=== PATIENT | female | born 1965 | race Caucasian/White ===

== ENCOUNTER 2022-04-04 07:59 | Emergency (ER) | payer MEDICARE, MEDICAID, SELFPAY ==
[2022-04-04 08:10] VITALS: BP 135/86; PULSE 75; RESP 21; TEMP 36.5; O2SAT 97; BMI 40.8
--- NOTE | 2022-04-04 08:29 | EXP.UTC ---
Discharge Plan Disposition Patient Disposition: Home, Self-Care Condition: Good Prescriptions Prescriptions: New prednisone [prednisone] 20 mg tablet 20 mg PO BID Qty: 10 0RF cyclobenzaprine 5 mg tablet 5 mg PO HS PRN (Reason: muscle spasm) Qty: 7 0RF Referrals Follow up/Referrals: Fabian Bush MD [Primary Care Provider] - See instructions Activity Restrictions/Add. Instructions Additional Instructions/Restrictions: if symptoms worsen or do not improve return or be seen in ed follow up with pcp on tuesday Clinical Impressions Clinical Impression: Acute low back pain with sciatica Instructions Patient Instructions: DI for Low Back Pain, Low Back Pain Discharge [facility] [place] General Stated complaint: Possible sciatic nerve pain LT side Mode of Arrival: Ambulatory Source of Information: Patient Limitations: No Limitations Time Seen by Provider: 04/04/22 08:29 Description of Symptoms (Recalled from Triage Doc. by RN): PATIENT C/O SCIATICA PAIN TO LEFT BUTTOCK THAT RADIATES DOWN LEFT LEG X 2 WEEKS HEENT Symptoms (Recalled from RN notes): No Resp Symptoms (Recalled from RN notes): No Skin Symptoms (Recalled from RN notes): No MS Symptoms (Recalled from RN notes): Yes Functional Status (Recalled from RN notes): WNL History of Present Illness Provider Complaint: 57 yr old female presents for low back pain and pain radiating down left leg for 2 weeks. pt states she was seen by her back md and was given a steroid shot in her back on but this did not help her pain. 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 , [employer]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) Smoking Status: Unknown if ever smoked alcohol intake: never current occupational status: other Travel in the last 8 weeks: None ROS Obtained: Yes All systems reviewed & no additional complaints except as documented Constitutional Constitutional: Reports system reviewed and no additional complaints, except as documented Eyes Eyes: Reports system reviewed and no additional complaints, except as documented ENT Ears, Nose, Mouth, and Throat: Reports system reviewed and no additional complaints, except as documented Cardiovascular Cardiovascular: Reports system reviewed and no additional complaints, except as documented Respiratory Respiratory: Reports system reviewed and no additional complaints, except as documented Gastrointestinal Gastrointestingal: Reports system reviewed and no additional complaints, except as documented Musculoskeletal Musculoskeletal: Reports system reviewed and no additional complaints, except as documented, Reports as per HPI, Reports back pain, Reports limited range of motion and Reports radiating pain into limb Integumentary/Breasts Skin/Breast: Reports system reviewed and no additional complaints, except as documented Neurologic Neurologic: Reports system reviewed and no additional complaints, except as documented Endocrine Endocrine: Reports system reviewed and no additional complaints, except as documented Hematologic/Lymphatic Henatologic/Lymphatic: Reports system reviewed and no additional complaints, except as documented Allergic/Immunologic Allergic/Immunologic: Reports system reviewed and no additional complaints, except as documented
[2022-04-04 08:52] VITALS: BP 135/86; PULSE 75; RESP 21; TEMP 36.5; O2SAT 97
== END 2022-04-04 08:53 | disposition home or self-care (01) ==
PROVIDERS: Emergency Provider Nurse Practitioner Family; PCP Pediatrics
DX: M54.40 Lumbago with sciatica, unspecified side (principal); Z87.19 Personal history of other diseases of the digestive system; F41.9 Anxiety disorder, unspecified; F32.A Depression, unspecified; E78.5 Hyperlipidemia, unspecified; I10 Essential (primary) hypertension
CPT/HCPCS: 96372; 99213; G0463

== ENCOUNTER → 2022-09-14 07:12 | Outpatient (CLI) | payer MEDICARE, MEDICAID, SELFPAY ==
--- NOTE | 2022-09-14 07:12 | CT_ITS ---
FINAL REPORT CLINICAL HISTORY: lung cancer screening, former smoker for 39 years, 1ppd, pt quit 2-3 months ago, pt currently vapes FINDINGS: Axial images were obtained from the lung apex to the mid abdomen by computed tomography. Low-dose protocol was utilized. CTDl vol(mGy): 2.9 DLP (mGy-cm): 96.38 FINDINGS: There are several mildly enlarged mediastinal lymph nodes. Moderate to severe coronary artery calcifications are noted. The heart size is normal. There is no pericardial or pleural effusion. Limited images of the upper abdomen are unremarkable. Lung window images demonstrate mild emphysema mild scarring. There are several small bilateral pulmonary nodules. There is a 4 mm nodule in the right lung base seen on image 57. There are 2 adjacent nodules at the left major fissure, the largest measuring 5 mm.. IMPRESSION: Several bilateral pulmonary nodules. Lung RADS category 2. Recommend 12 month follow-up low-dose chest CT. Moderate to severe coronary artery calcifications. Lung RADS category S. Reviewed, Interpreted and Dictated by Gilles Segovia III, MD Transcribed by Andria Guerrero Authenticated and [facility]
== END ==
PROVIDERS: PCP Physician Assistant; Visit Provider Physician Assistant
DX: Z87.891 Personal history of nicotine dependence; Z12.2 Encounter for screening for malignant neoplasm of respiratory organs
CPT/HCPCS: 71271

== ENCOUNTER → 2022-09-29 09:58 | Outpatient (CLI) | payer MEDICARE, MEDICAID, SELFPAY | PROVIDERS: PCP Physician Assistant; Visit Provider Physician Assistant | DX: E78.5 Hyperlipidemia, unspecified (principal); I10 Essential (primary) hypertension; R06.00 Dyspnea, unspecified; Z82.49 Family history of ischemic heart disease and other diseases of the circulatory system; Z87.891 Personal history of nicotine dependence; I20.8 Other forms of angina pectoris | CPT/HCPCS: 93306 ==

== ENCOUNTER → 2022-10-04 12:11 | Outpatient (CLI) | payer MEDICARE, MEDICAID, SELFPAY ==
--- NOTE | 2022-10-04 | CA_ITS ---
APPROVED REPORT Exam: Pharmacologic Technologist: Miroslava Wood Ht: 5 ft 0 in Wt: 217 lbs BSA: 1.93 m2 HR: 59 bpm BP: 137/91 mmHg Indications: Chest pain Medical History Medications: Amlodipine,,,,, Trazadone,,,,, Atorvastatin,,,,, Lisinopril/HCTZ,,,,, Buspirone,,,,, Nexium,,,,, Albuterol,,,,, Cyclobenzaprine,,,,, Latuda,,,,, Hydroxyzine,,,,, ANoro,,,,, LaMatringe,,,,, Stress Test Details Test: LEXISCAN HR Resting HR: 64 bpm Max Heart Rate (APMHR): 165 bpm Max HR Achieved: 142 bpm Target HR (85% APMHR): 140 bpm % of APMHR: 86 Recovery HR: 89 bpm BP Resting BP: 137.0/91.0 mmHg Max BP: 178.0/94.0 mmHg Recovery BP: 156.0/94.0 mmHg ECG Resting ECG: NSR, early repolarization pattern with J-point elevation Stress ECG: No change Clinical Exercise duration: 04:00 min Highest Stage Achieved: Exercise capacity: n/a METs Stress ECG Conclusion Symptoms: Shortness of breath Arrhythmias/Ectopy: None ECG at baseline demonstrates NSR with early repolarization and upsloping J-point elevation. Stress ECG is non-diagnostic due to baseline changes, but overall no major changes were observed. Conclusion: Non-diagnostic due to baseline ECG changes Test Summary REST . . . . . . . Resting REST 03:59 . . 64 . 137/ 91 . . Stage 1 . . . . . . . Myoview Injected Stage 1 01:00 . . 99 . . . . Stage 2 01:00 . . 100 . . . . Stage 3 01:00 . . 91 . 135/ 91 . . Stage 4 01:00 . . 92 . . . Stop exercise at 04:00 RECOVERY 01:00 . . 86 . . . . RECOVERY 02:00 . . 81 . 156/ 94 . . RECOVERY 03:00 . . 83 . 173/104 . . RECOVERY 04:00 . . 74 . 172/ 95 . . RECOVERY 05:00 . . 93 . 172/ 95 . . RECOVERY 06:00 . . 68 . 172/ 95 . . RECOVERY 07:00 . . 68 . 178/ 94 . . RECOVERY 08:00 . . 70 . 178/ 94 . . RECOVERY 09:00 . . 62 . 178/ 94 . . RECOVERY 10:00 . . 62 . 178/ 94 . . RECOVERY 11:00 . . 69 . 175/ 94 . . RECOVERY 11:18 . . 64 . 175/ 94 . . Electronically signed by : Emi Alonso, 10/11/2022 18:41:12
--- NOTE | 2022-10-04 12:11 | NM_ITS ---
APPROVED REPORT Exam: Nuclear Stress Test Indication: chest pain..soa..fatigue Patient Location: Outpatient Stress Tech: Miroslava Wood NM Tech:Lashon Guzman COLT RT (R)(N)(M) Ht: 5 ft 0 in Wt: 216 lbs Bra Size: dd HR: 59 bpm BP: 137/91 mmHg BSA: 1.93 m2 TID: 1.10 History: chest pain, SOB, fatigue Procedure: Patient received 0.4 mg of intravenous Lexiscan, resting heart rate 59 bpm, resting blood pressure 137/91 mmHg, with Lexiscan maximum heart rate achieved was 102 bpm which is 85 % of the maximum predicted heart rate and blood pressure was 135/91 mmHg. With Lexiscan, patient denied any complaint of chest pain. Cardiac Stress and Resting SPECT Images: Cardiac Stress and Resting SPECT images were obtained using technetium 99m Myoview 31.0 mCi stress and 11.06 mCi at rest. Raw images demonstrate breast shadowing overlying the cardiac silhouette. Resting and stress images demonstrate a large, moderate, fixed perfusion defect along the entire anterior LV wall. This defect is no longer visualized in prone imaging. Gated images demonstrate normal global and regional LV wall function. The LV ejection fraction is calculated at 68%. Conclusion: Resting and stress images demonstrate a large, moderate, fixed perfusion defect along the entire anterior LV wall. This defect is no longer visualized in prone imaging. Findings are consistent with normal perfusion in the setting of breast attenuation, with no evidence of ischemia. Gated images demonstrate normal global and regional LV wall function. The LV ejection fraction is calculated at 68%. Electronically signed by : Emi Alonso, 10/04/2022 23:44:23
== END ==
PROVIDERS: PCP Physician Assistant; Visit Provider Physician Assistant
DX: I25.10 Atherosclerotic heart disease of native coronary artery without angina pectoris (principal); R07.9 Chest pain, unspecified
CPT/HCPCS: 78452; 93017; A9502; J2785

== ENCOUNTER → 2022-11-01 12:50 | Outpatient (POV) | payer MEDICARE, MEDICAID, SELFPAY ==
[2022-11-01 13:01] VITALS: BP 138/69; PULSE 72; RESP 18; O2SAT 98; BMI 43.0
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
== END ==
PROVIDERS: PCP Physician Assistant; Visit Provider Nurse Practitioner Family
DX: M50.30 Other cervical disc degeneration, unspecified cervical region (principal); M51.36 Other intervertebral disc degeneration, lumbar region; M47.816 Spondylosis without myelopathy or radiculopathy, lumbar region; G89.29 Other chronic pain
CPT/HCPCS: 99202; G0463

== ENCOUNTER 2022-11-09 10:24 | Day surgery (SDC) | payer MEDICARE, MEDICAID, SELFPAY ==
[2022-11-09 10:38] VITALS: BP 148/76; PULSE 60; RESP 18; TEMP 36.1; O2SAT 99; BMI 43.0
[2022-11-09 10:43] VITALS: BP 134/64; PULSE 58; RESP 18; O2SAT 97
[2022-11-09 10:45] VITALS: BP 134/64; PULSE 58; RESP 18; O2SAT 97
[2022-11-09 10:55] VITALS: BP 132/51; PULSE 60; RESP 18; O2SAT 99
--- NOTE | 2022-11-09 11:08 | P.PCN_ITS ---
Procedure Date: 11/09/22 Time: 10:30 Anesthesiologist:: Davi Cowan CRNA Complications:: None Pre-procedure Diagnosis:: Degenerative disc lumbar spine multilevels. Lumbar radiculopathy. Lumbar spondylosis. Multilevel lumbar facet arthropathy. Post-procedure Diagnosis:: Same. Indications for Procedure:: Very pleasant 57-year-old female that comes our clinic today for bilateral lumbar radiofrequency ablation L3-4, L4-5. Patient has had this procedure in the past resulting in 4 months of relief in terms of her overall low back pain and bilateral hip radicular symptoms. She rates her pain today 6/10. Patient has difficulty with flexion, extension, left and right rotation. Standing and or sitting for any length of time is difficult. Procedure Details:: Procedure Details: Bilateral lumbar RFA Informed consent was obtained and the risk and benefits of the procedure was explained to the patient. Patient was placed prone on the procedure table. The patient was prepped and draped in sterile fashion. C-arm fluoroscopy was used to view the lumbar spine. The skin and subcutaneous tissues were anesthetized using lidocaine. I placed 20-gauge RF needles into the facet joints of the bilateral L3-L4, L4-L5. We underwent sensory stimulation. There is good sensory stimulation at 0.8 V. We underwent motor stimulation. There is no motor stimulation at 2 V. We then anesthetized these levels with lidocaine and Depo- Medrol. I used a total of 40 mg Depo-Medrol for all 3 levels. I then burned all 3 levels of L3-L4, L4-5 bilaterally for 4 minutes at 80 ?C. Patient tolerated the procedure well with no complication Plan and Disposition:: Patient was discharged without incident
== END 2022-11-09 10:55 | disposition home or self-care (01) ==
LOC: SC.PAINP 10:25
PROVIDERS: PCP Physician Assistant; Visit Provider Nurse Anesthetist, Certified Registered
DX: M51.16 Intervertebral disc disorders with radiculopathy, lumbar region (principal); M47.26 Other spondylosis with radiculopathy, lumbar region
CPT/HCPCS: 64635; 64636 ×2; J1040

== ENCOUNTER → 2022-11-11 12:00 | Outpatient (CLI) | payer MEDICARE, MEDICAID, SELFPAY ==
[2022-11-11 12:22] LABS: Basophils % 0.3 % (0.1-2.0); Eosinophils # 0.1 K/mm3 (0.0-0.4); Eosinophils % 1.3 % (0.1-12.0); Hematocrit 41.6 % (37.0-47.0); Hemoglobin 13.6 g/dL (12.2-16.2); Lymphocytes # 3.2 K/mm3 (0.7-4.5); Lymphocytes % 32.7 % (10-50); Mean Corpuscular HGB Conc 32.7 g/dL (31.8-35.4); Mean Corpuscular Hemoglobin 30.3 pg (27.0-31.2); Mean Corpuscular Volume 92.8 fl (81-99); Mean Platelet Volume 9.1 fl (7.4-10.4); Monocytes # 0.6 K/mm3 (0.1-1.0); Monocytes % 6.1 % (1.7-9.3); Neutrophils # 5.8 K/mm3 (1.8-7.8); Neutrophils % 59.7 % (37.0-80.0); Platelet Count 377 K/mm3 (142-424); Red Blood Count 4.48 M/mm3 (4.20-5.40); Red Cell Distribution Width 13.7 % (11.5-17.5); White Blood Count 9.8 K/mm3 (4.8-10.8)
[2022-11-11 13:00] LABS: Chloride 101 mmol/L (98-107); Sodium 140 mmol/L (136-145)
[2022-11-11 13:02] LABS: Alanine Aminotransferase 23 U/L (12-78); Alkaline Phosphatase 151 U/L (38-126); Aspartate Amino Transferase 27 U/L (14-36); Bilirubin,Total 0.2 mg/dl (0.2-1.3); Blood Urea Nitrogen 19 mg/dl (7-17); Estimated Glomerular Filt Rate 104 ml/min (>60); GFR (African American) 126 ML/MIN (>60)
[2022-11-11 13:03] LABS: Albumin Level 4.1 g/dl (3.5-5.0); Albumin/Globulin Ratio 1.3 (1.1-1.8); Calcium 9.1 mg/dl (8.4-10.2); Carbon Dioxide 28 mmol/L (22.0-30.0); Chol/HDL Ratio 3.5 (1-3.5); Cholesterol 165 mg/dl (140-200); Globulin 3.1 g/dL (1.3-3.2); Glucose 103 mg/dl (74-100); HDL Cholesterol 47 mg/dl (40-60); Total Protein,Serum 7.2 g/dl (6.3-8.2); Triglycerides 137 mg/dl (30-150); VLDL Cholesterol 27 mg/dL (0-40)
[2022-11-11 13:14] LABS: Direct LDL Cholesterol 86.78 mg/dL (100-129)
[2022-11-11 13:34] LABS: Thyroid Stimulating Hormone 0.55 uIU/mL (0.465-4.68)
[2022-11-13 19:35] LABS: HBsAg Screen Negative (Negative); HCV Ab Non Reactive (Non Reactive); Hep A Ab, IGM Negative (Negative); Hep B Core Ab, IgM Negative (Negative)
[2022-11-15 10:35] LABS: Intact Parathyroid Hormone 32.4 pg/mL (7.5-53.5)
[2022-11-16 11:14] LABS: 25-OH Vitamin D, Total 74.6 ng/mL (30-100)
== END ==
PROVIDERS: PCP Physician Assistant; Visit Provider Physician Assistant
DX: I10 Essential (primary) hypertension (principal); R53.83 Other fatigue; E55.9 Vitamin D deficiency, unspecified
CPT/HCPCS: 80053; 80061; 80074; 82306; 83970; 84443; 85025

== ENCOUNTER → 2022-11-24 11:25 | Outpatient (POV) | payer MEDICARE, MEDICAID, SELFPAY ==
[2022-11-24 11:32] VITALS: BP 140/51; PULSE 58; RESP 18; O2SAT 97; BMI 42.2
--- NOTE | 2022-11-24 11:34 | EXP.PAIN.SOA ---
[facility] Pain Management SOAP Note Subjective:: Patient is a pleasant 57-year-old female who presents today for follow-up of lumbar RFA L3-L4 and L4-L5 bilaterally on 11/09/2022. We are currently treating the patient for degenerative disc disease of cervical and lumbar spine with cervical and lumbar radiculopathy symptoms, lumbar facet arthropathy, lumbar spondylosis, chronic pain syndrome, low back pain, neck pain. Today she states that she has had at least 60 to 70% relief following this injection. She does rate her pain today a 3 out of 10 and denies any new trauma or injury. She does states she has been able to increase her activity with decreased pain symptoms. 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 At our last visit we did order her methocarbamol 750 mg 3 times a day however she states she did not get this prescription. Patient is currently managed with tramadol 50 mg twice a day from her primary care doctor. Patient denies any side effects from this medication. Her Jose is [phone]. Its been reviewed and appropriate. Review of Systems: General: No recent weight changes, no fever, no sleep disturbances Respiratory: No cough, no shortness of air, no recurring pulmonary infections Cardiovascular/peripheral vascular: No chest pain, no palpitations, no edema, no shortness of breath Gastrointestinal: No new onset incontinence, normal bowel movements reported Genitourinary: No new onset incontinence Musculoskeletal: Low back pain Psychiatric: [Normal mood/affect] Neurological: [Denies weakness in extremities], [denies balance issues] Objective:: Physical Exam: General: Alert and oriented x3, no acute distress, pleasant and cooperative Lungs: Respirations even and unlabored, symmetrical chest expansion Eyes: PERRL Musculoskeletal: Flexion and extension of lumbar [spine] somewhat guarded secondary to pain, [antalgic gait noted] Neurological: Speech clear, no gross sensory deficit Assessment:: Degenerative disc disease of cervical and lumbar spine with cervical and lumbar radiculopathy symptoms, lumbar facet arthropathy, lumbar spondylosis, chronic pain syndrome, low back pain, neck pain Plan:: Patient has had at least 70% improvement following her lumbar RFA and does not require any additional injective therapy. I will send in a refill of the methocarbamol 750 mg 3 times a day and provide a 1 month supply of this medication. Patient will return to clinic in 1 month for reevaluation of symptoms, medication refill and follow-up. Patient has been instructed to contact the clinic with any concerns before the next appointment. Dr. Davis has reviewed this note and agrees with this plan of care. This note was dictated using voice recognition software and make contain errors or omissions. [facility] Disclaimer: The information contained in this section may have been updated after the patient was seen, as this information can be updated by other users. Medical History Abnormal electrocardiogram [ECG] [EKG] Abnormal liver function tests Anxiety Back pain, chronic Bipolar 1 disorder COPD (chronic obstructive pulmonary disease) Coronary artery calcification seen on CT scan Coronary artery disease Depression Dyspnea Elevated liver enzymes Family history of ischemic heart disease before age 50 Father-[place] @ 42 Brother-KAVITHA @42 Brother-CABG @45 Mother-AFib Former smoker Hyperlipidemia Hypertension Insomnia Morbid obesity with BMI of 40.0-44.9, adult Neck pain, chronic Typical angina 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 H/O colonoscopy H/O lateral meniscus repair of left knee H/O lateral meniscus repair of right knee H/O splenectomy History of appendectomy History of bladder surgery History
== END | disposition home or self-care (01) ==
PROVIDERS: PCP Physician Assistant; Visit Provider Nurse Practitioner Family
DX: M50.10 Cervical disc disorder with radiculopathy, unspecified cervical region (principal); M51.16 Intervertebral disc disorders with radiculopathy, lumbar region; M47.26 Other spondylosis with radiculopathy, lumbar region; G89.4 Chronic pain syndrome
CPT/HCPCS: 99212; G0463

== ENCOUNTER → 2022-11-29 09:00 | Outpatient (CLI) | payer MEDICARE, MEDICAID, SELFPAY ==
--- NOTE | 2022-11-29 09:00 | XR_ITS ---
FINAL REPORT CLINICAL HISTORY: . post menopausal screening COMPARISON: None FINDINGS: Using L1-4, the bone mineral density of the spine is 1.002 g/cm2, corresponding to T-score of -0.4, within normal range. Using the left hip, the bone mineral density of the femoral neck is 0.649 g/cm2, corresponding to a T-score of -1.8, consistent with low bone density. Using the right hip, the bone mineral density of the femoral neck is 0.699 g/cm2, corresponding to a T-score of -1.3, within normal range. FRAX 10 year fracture risk is 0.5% for a hip fracture and 6.4% for a major osteoporotic fracture. NOTE: T-score: Standard deviation compared with peak bone mass of young adult mean. *Following the recommendations of the International Society of Bone densitometry, classification of hip BMD is based on the lower of two T-scores; total hip or femoral neck. IMPRESSION: Normal bone mineral density of the lumbar spine and right hip, with diminished bone mineral density in the left hip consistent with low bone density. Reviewed, Interpreted and Dictated by Gilles Segovia III, MD Transcribed by Erin Mcnulty Authenticated and [facility]
== END ==
PROVIDERS: PCP Physician Assistant; Visit Provider Physician Assistant
DX: Z78.0 Asymptomatic menopausal state (principal)
CPT/HCPCS: 77080

== ENCOUNTER → 2022-12-02 10:28 | Outpatient (CLI) | payer MEDICARE, MEDICAID, SELFPAY ==
--- NOTE | 2022-12-02 10:32 | MM_ITS ---
PROCEDURE INFORMATION: Exam: MG Bilateral Screening 3D Mammography Exam date and time: 12/02/2022 10:25 AM Age: 57 years old Clinical indication: Screening examination; Family history of breast cancer : Paternal cousin TECHNIQUE: Imaging protocol: Bilateral Screening tomosynthesis and 2D mammography including computer-aided detection (CAD) when performed. COMPARISON: 1. MG [facility]CR[facility] MAMMO W/CAD BILAT 12/30/2021 9:34 AM 2. MG [facility]CRN MAMMO W/CAD BILAT 12/09/2020 11:30 AM FINDINGS: MAMMOGRAPHY: Breast composition: The breasts are heterogeneously dense, which may obscure small masses. Mass: None. Architectural distortion: None. Calcifications: No suspicious calcifications. Asymmetric density: None. Skin thickening: None. Axillary adenopathy: None. IMPRESSION: No mammographic evidence of malignancy. Annual screening is recommended unless otherwise clinically indicated. ASSESSMENT: BI-RADS Category 1: Negative
== END ==
PROVIDERS: PCP Physician Assistant; Visit Provider Physician Assistant
DX: Z12.31 Encounter for screening mammogram for malignant neoplasm of breast (principal)
CPT/HCPCS: 77063; 77067

== ENCOUNTER → 2022-12-09 07:36 | Outpatient (CLI) | payer MEDICARE, MEDICAID, SELFPAY ==
--- NOTE | 2022-12-09 07:36 | US_ITS ---
FINAL REPORT TECHNIQUE: Sonographic images of the right upper quadrant were obtained. CLINICAL HISTORY: Abnormal lab result FINDINGS: PANCREAS: The tail of the pancreas is obscured, but the head is normal. LIVER: Homogeneous. No focal hepatic lesion. No intrahepatic biliary ductal dilatation. The portal vein is patent with normal directional flow. GALLBLADDER: Absent. COMMON DUCT: 3 mm. Normal for age. RIGHT KIDNEY: The right kidney measures 10.3 cm. There is no hydronephrosis, mass, or stone. FREE FLUID: None. IMPRESSION: Unremarkable ultrasound of the right upper quadrant. Reviewed, Interpreted and Dictated by Diamond Dick MD Transcribed by Jihan Song Authenticated and [facility]
== END ==
PROVIDERS: PCP Physician Assistant; Visit Provider Physician Assistant
DX: R74.8 Abnormal levels of other serum enzymes (principal)
CPT/HCPCS: 76705

== ENCOUNTER 2022-12-09 08:31 | Day surgery (SDC) | payer MEDICARE, MEDICAID, SELFPAY ==
[2022-12-09] VITALS (14 sets, daily range): BP systolic 104–156; BP diastolic 61–105; PULSE 50–73; RESP 16–19; TEMP 36.6; O2SAT 90–99; BMI 41.8; BMI 42.5
--- NOTE | 2022-12-09 07:08 | IR_ITS ---
APPROVED REPORT Patient Location: Outpatient Cardiovascular Technologist: COLT Sifuentes RT (R) PROCEDURES Selective coronary angiogram FFR to the LAD Drug-eluting stent deployment to the mid LAD INDICATION Coronary artery disease, Angina pectoris, Ischemic response to adenosine with an FFR index of 0.77 Informed consent was obtained prior to the procedure. COMPLICATIONS None Estimated Blood Loss: Less than 10 mls TECHNIQUE One percent lidocaine used to anesthetize the right anterior aspect of the wrist. The right radial artery was accessed via the Seldinger technique. A 6 Wolof sheath was placed in the right radial artery. 150 mg magnesium sulfate, 800 mcg of nitroglycerin, 1mg Lidocaine and 5000 U Heparin were given through the arterial sheath. The papa catheter was also used to perform selective coronary angiography. At the end the diagnostic angiogram therapeutic heparin was administered giving a therapeutic ACT and the guide catheter was placed on left main artery followed by Choice PT extra-support wire being placed on the LAD. An IVUS FFR catheter was advanced to the left main artery and equalized. This was then advanced past the LAD stenosis and adenosine was infused. Once that the FFR index to 0.77 the adenosine was stopped and a 3.5 x 38 mm [place] frontier stent was deployed at 16 bairon reducing the stenosis. An additional 3.5 x 12 mm [place] frontier stent was placed proximal to the for stent yet still overlapping and deployed at 16 bairon. The balloon was advanced to the midportion and an area that was under deployed and deployed at 18 bairon to post dilate. 800 mcg of intracoronary artery nitroglycerin was administered. JOHN-3 flow was present before and after the procedure. At the end the procedure the apparatus was removed the sheath was removed and hemostasis was achieved using TR banding patient was transferred to the postop putting in stable condition ANGIOGRAPHIC RESULTS The left main artery Normal The left anterior descending artery Has proximal 10 to 20% stenosis followed by an additional mid vessel 30 to 40% stenosis with additional mid vessel concentric 50% stenosis followed by an additional 40 to 50% stenosis. The LAD is large caliber vessel and wraps the apex The circumflex artery Is nondominant gives rise to a moderate-sized ramus intermedius which has a proximal concentric 80% stenosis. This is a 2.25 mm vessel. The true circumflex artery has an ostial 40% stenosis The right coronary artery Is a dominant vessel and has a proximal eccentric 40 to 50% stenosis with mid vessel 40% stenosis The JULIEN ventriculogram reveals Not performed The left ventricular end-diastolic pressure Not measured IMPRESSION Angiographically moderate mid LAD disease which produced severe hemodynamic ischemia when challenged with adenosine producing an FFR index of 0.77 Successful stenting the mid LAD large wraparound LAD vessel reduced to 0% with 2 contiguous drug-eluting stents Persistent severe stenosis and a 2.25 mm ramus intermedius Moderate disease in the ostial circumflex artery and mid dominant right coronary PLAN 1. Dual antiplatelet therapy 2. LDL less than 55 to achieve that high intensity statin 3. At this point I favor medical management of the ramus intermedius. Should patient continue to experience angina pectoris refractory to antianginal medications I would consider bringing her back and stenting this vessel. Given the small caliber of the vessel I would like patient to experience maximum medications. I also suspect patient's angina pectoris stems from the LAD given its large caliber vessel and the wraparound apex nature of the vessel 4. Cardiac rehabilitation 5. Recommend sleep study 6. Consider Voxel.pl in 6 weeks Electronically signed
[2022-12-09 09:21] LABS: Anion Gap 10.4 mEq/L (5-15); Blood Urea Nitrogen 19 mg/dl (7-17); Calcium 9.5 mg/dl (8.4-10.2); Carbon Dioxide 32 mmol/L (22.0-30.0); Chloride 102 mmol/L (98-107); Creatinine Clearance Estimated 65 mL/min (50-200); Estimated Glomerular Filt Rate 87 ml/min (>60); GFR (African American) 105 ML/MIN (>60); Glucose 103 mg/dl (74-100); Potassium 3.4 mmoL/L (3.5-5.1); Sodium 141 mmol/L (136-145)
[2022-12-09 10:28] LABS: Basophils % 0.5 % (0.1-2.0); Hematocrit 39.5 % (37.0-47.0); Hemoglobin 13.3 g/dL (12.2-16.2); Lymphocytes # 3.5 K/mm3 (0.7-4.5); Mean Corpuscular HGB Conc 33.7 g/dL (31.8-35.4); Mean Corpuscular Hemoglobin 30.4 pg (27.0-31.2); Mean Corpuscular Volume 90.2 fl (81-99); Mean Platelet Volume 10.2 fl (7.4-10.4); Monocytes # 0.7 K/mm3 (0.1-1.0); Monocytes % 8.9 % (1.7-9.3); Neutrophils # 3.1 K/mm3 (1.8-7.8); Neutrophils % 41.6 % (37.0-80.0); Platelet Count 332 K/mm3 (142-424); Red Blood Count 4.38 M/mm3 (4.20-5.40); Red Cell Distribution Width 14.5 % (11.5-17.5); White Blood Count 7.5 K/mm3 (4.8-10.8)
[2022-12-09 10:29] LABS: Eosinophils # 0.2 K/mm3 (0.0-0.4)
[2022-12-09 13:15] LABS: CATHL Activated Clotting Time 342 SEC (74-125)
--- NOTE | 2022-12-09 14:24 | HMH.PHACL ---
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
== END 2022-12-09 15:22 | disposition home or self-care (01) ==
PROVIDERS: PCP Physician Assistant; Visit Provider Internal Medicine
DX: E78.5 Hyperlipidemia, unspecified (principal); I10 Essential (primary) hypertension; I25.10 Atherosclerotic heart disease of native coronary artery without angina pectoris; J44.9 Chronic obstructive pulmonary disease, unspecified; R06.00 Dyspnea, unspecified; R94.31 Abnormal electrocardiogram [ECG] [EKG]; Z82.49 Family history of ischemic heart disease and other diseases of the circulatory system; Z79.899 Other long term (current) drug therapy; Z79.01 Long term (current) use of anticoagulants; F17.290 Nicotine dependence, other tobacco product, uncomplicated
CPT/HCPCS: 76705; 80048; 85025; 85347; 92928; 93454; 93571; 99152; 99153; C1725; C1769; C1876; C9600; J0153; J1644; Q9967

== ENCOUNTER → 2022-12-21 13:37 | Outpatient (CLI) | payer MEDICARE, MEDICAID, SELFPAY ==
[2022-12-21 14:38] LABS: Basophils # 0.1 K/mm3 (0-0.2); Basophils % 0.5 % (0.1-2.0); Eosinophils # 0.1 K/mm3 (0.0-0.4); Eosinophils % 1.2 % (0.1-12.0); Hematocrit 42.9 % (37.0-47.0); Hemoglobin 13.7 g/dL (12.2-16.2); Lymphocytes # 4.1 K/mm3 (0.7-4.5); Lymphocytes % 44.4 % (10-50); Mean Corpuscular HGB Conc 31.8 g/dL (31.8-35.4); Mean Corpuscular Hemoglobin 29.6 pg (27.0-31.2); Mean Corpuscular Volume 92.9 fl (81-99); Mean Platelet Volume 7.4 fl (7.4-10.4); Monocytes # 0.7 K/mm3 (0.1-1.0); Monocytes % 7.6 % (1.7-9.3); Neutrophils # 4.3 K/mm3 (1.8-7.8); Neutrophils % 46.2 % (37.0-80.0); Platelet Count 343 K/mm3 (142-424); Red Blood Count 4.62 M/mm3 (4.20-5.40); Red Cell Distribution Width 13.9 % (11.5-17.5); White Blood Count 9.2 K/mm3 (4.8-10.8)
[2022-12-21 15:16] LABS: Blood Urea Nitrogen 13 mg/dl (7-17); Calcium 9.3 mg/dl (8.4-10.2); Carbon Dioxide 32 mmol/L (22.0-30.0); Estimated Glomerular Filt Rate 104 ml/min (>60); GFR (African American) 126 ML/MIN (>60); Glucose 88 mg/dl (74-100)
[2022-12-21 16:12] LABS: Anion Gap 8.6 mEq/L (5-15); Chloride 105 mmol/L (98-107); Potassium 3.6 mmoL/L (3.5-5.1); Sodium 142 mmol/L (136-145)
== END ==
PROVIDERS: PCP Physician Assistant; Visit Provider Internal Medicine
DX: I25.10 Atherosclerotic heart disease of native coronary artery without angina pectoris (principal); Z95.5 Presence of coronary angioplasty implant and graft
CPT/HCPCS: 36415; 80048; 85025

== ENCOUNTER → 2022-12-23 11:09 | Outpatient (POV) | payer MEDICARE, MEDICAID, SELFPAY ==
--- NOTE | 2022-12-23 11:19 | EXP.PAIN.SOA ---
[facility] Pain Management SOAP Note Subjective:: Patient is a pleasant 57-year-old female who presents today for follow-up and medication refill. We are currently treating the patient for degenerative disc disease of cervical and lumbar spine with cervical and lumbar radiculopathy symptoms, lumbar facet arthropathy, lumbar spondylosis, chronic pain syndrome, low back pain, neck pain. Today she rates her pain a 3 out of 10. Patient states she is continued to do well following her lumbar RFA back in October and feels like it is still providing additional relief. She does state that she has had recent heart issues including having to have a heart cath and had 2 stents placed due to blockages. She does state that she is now on a blood thinner. Patient is currently managed with methocarbamol 750 mg 3 times a day and tramadol 50 mg 1 to 2 tablets a day. Patient denies any side effects from this medication. Her Jose is [id number]. Its been reviewed and appropriate. Review of Systems: General: No recent weight changes, no fever, no sleep disturbances Respiratory: No cough, no shortness of air, no recurring pulmonary infections Cardiovascular/peripheral vascular: No chest pain, no palpitations, no edema, no shortness of breath Gastrointestinal: No new onset incontinence, normal bowel movements reported Genitourinary: No new onset incontinence Musculoskeletal: Low back pain Psychiatric: [Normal mood/affect] Neurological: [Denies weakness in extremities], [denies balance issues] Objective:: Physical Exam: General: Alert and oriented x3, no acute distress, pleasant and cooperative Lungs: Respirations even and unlabored, symmetrical chest expansion Eyes: PERRL Musculoskeletal: Flexion and extension of lumbar [spine] somewhat guarded secondary to pain, [antalgic gait noted] Neurological: Speech clear, no gross sensory deficit Assessment:: Degenerative disc disease of cervical and lumbar spine with cervical and lumbar radiculopathy symptoms, lumbar facet arthropathy, lumbar spondylosis, chronic pain syndrome, low back pain, neck pain Plan:: I will send in refills of her tramadol 50 mg twice daily and methocarbamol 750 mg 3 times daily and provide a 2-month supply of this medication. Patient will return to clinic in 2 months for reevaluation of symptoms, medication refill and plan of care. Patient has been instructed to contact the clinic with any concerns before the next appointment. Dr. Davis has reviewed this note and agrees with this plan of care. This note was dictated using voice recognition software and make contain errors or omissions. [facility] Disclaimer: The information contained in this section may have been updated after the patient was seen, as this information can be updated by other users. Medical History (Updated 12/21/22 @ 14:58 by Lashon Vu RN) Abnormal electrocardiogram [ECG] [EKG] Abnormal liver function tests Anxiety Back pain, chronic Bipolar 1 disorder COPD (chronic obstructive pulmonary disease) Coronary artery abnormality Coronary artery calcification seen on CT scan Coronary artery disease Depression Dyspnea Elevated liver enzymes Family history of ischemic heart disease before age 50 Former smoker Hyperlipidemia Hypertension Insomnia Morbid obesity with BMI of 40.0-44.9, adult Neck pain, chronic Typical angina 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 H/O colonoscopy H/O lateral meniscus repair of left knee H/O lateral meniscus repair of right knee H/O splenectomy History of appendectomy History of bladder surgery History of cholecystectomy Tubal ligation status Family History Other No significant family history Social History Smoking Status: Current every day smoker tobacco type: e-cigarettes alcohol intake: never current occupational status: unemployed Travel in the last 8
[2022-12-23 14:44] VITALS: BP 140/70; PULSE 66; RESP 18; O2SAT 97; BMI 42.8
== END | disposition home or self-care (01) ==
PROVIDERS: Visit Provider Nurse Practitioner Family
DX: M50.10 Cervical disc disorder with radiculopathy, unspecified cervical region (principal); M51.16 Intervertebral disc disorders with radiculopathy, lumbar region; M47.26 Other spondylosis with radiculopathy, lumbar region; G89.4 Chronic pain syndrome
CPT/HCPCS: 99212; G0463

== ENCOUNTER → 2023-02-28 10:53 | Outpatient (POV) | payer MEDICARE, MEDICAID, SELFPAY ==
[2023-02-28 11:15] VITALS: BP 144/73; PULSE 66; RESP 20; BMI 42.0
--- NOTE | 2023-02-28 11:42 | EXP.PAIN.SOA ---
[facility] Pain Management SOAP Note Subjective:: This patient is a very pleasant 58-year-old female that comes our clinic today for follow-up visit after receiving bilateral lumbar L4-5, L5-S1 radiofrequency ablation. Patient doing very well with her midline back pain. Patient patient reports 80% plus pain relief with RFA. Patient's main complaint today is right posterior hip pain. She describes the pain as constant, sharp, stabbing at times. She rates the pain 6/10. Patient has difficulty transitioning from sitting to standing. Difficulty with flexion of the lumbar spine. Patient is currently being managed with methocarbamol 750 mg 1 p.o. 3 times daily. Tramadol 50 mg 1 to 2 tablets daily. She is not reporting side effects from the medication. She states medication is helping. However, nothing is helping this right posterior hip pain. Upon examination she has extreme point tenderness over the right sacroiliac joint. She has difficulty transitioning from sitting to standing. Patient has difficulty rolling over on her right side in bed secondary to pain. She has positive Yue's test. Positive Gaenslen's test. Positive right sacroiliac joint compression test. Patient's Jose #[id number] has been reviewed and appropriate. Objective:: Patient is awake alert [place] x3. In no acute distress. Flexion-extension lumbar spine somewhat guarded secondary to pain. Deep tendon reflexes upper and lower extremities normal. Motor strength upper and lower extremities normal. There is no gross sensory deficit. Gait is normal. Assessment:: Degenerative disc lumbar spine multilevels. Lumbar radiculopathy. Lumbar spondylosis. Multi lumbar facet arthropathy. Right sacroiliitis. Plan:: We will refill the patient's tramadol 50 mg 1 p.o. 3 times daily. Robaxin-750 milligrams 1 p.o. 3 times daily. We will schedule patient for right sacroiliac joint injection. I discussed in detail with the patient regarding the injection. Answered her questions. She wishes to proceed. Patient is tried and failed NSAIDs. Tylenol. Conservative treatment such as home exercise program and physical therapy. [facility] Disclaimer: The information contained in this section may have been updated after the patient was seen, as this information can be updated by other users. Medical History Abnormal electrocardiogram [ECG] [EKG] Abnormal liver function tests Anxiety Back pain, chronic Bipolar 1 disorder COPD (chronic obstructive pulmonary disease) Coronary artery abnormality Coronary artery calcification seen on CT scan Coronary artery disease Depression Dyspnea Elevated liver enzymes Family history of ischemic heart disease before age 50 Father-VT @ 42 Brother-KAVITHA @42 Brother-CABG @45 Mother-AFib Former smoker Hyperlipidemia Hypertension Insomnia Morbid obesity with BMI of 40.0-44.9, adult Neck pain, chronic Typical angina 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 H/O colonoscopy H/O lateral meniscus repair of left knee H/O lateral meniscus repair of right knee H/O splenectomy History of appendectomy History of bladder surgery History of cholecystectomy Tubal ligation status Family History Other No significant family history Social History Smoking Status: Current every day smoker tobacco type: e-cigarettes alcohol intake: never substance use type: denies use current occupational status: other Travel in the last 8 weeks: None
== END | disposition home or self-care (01) ==
PROVIDERS: PCP Physician Assistant; Visit Provider Nurse Anesthetist, Certified Registered
DX: M46.1 Sacroiliitis, not elsewhere classified (principal); M51.16 Intervertebral disc disorders with radiculopathy, lumbar region; M47.26 Other spondylosis with radiculopathy, lumbar region
CPT/HCPCS: 99212; G0463

== ENCOUNTER 2023-03-15 09:14 | Day surgery (SDC) | payer MEDICARE, MEDICAID, SELFPAY ==
[2023-03-15 09:27] VITALS: BP 120/60; PULSE 58; RESP 16; TEMP 36.7; O2SAT 96; BMI 42.0
[2023-03-15 09:35] VITALS: BP 134/61; PULSE 58; RESP 18; O2SAT 96
[2023-03-15 09:39] VITALS: BP 113/67; PULSE 59; RESP 18; O2SAT 95
[2023-03-15 09:40] VITALS: BP 113/67; PULSE 59; RESP 18; O2SAT 95
--- NOTE | 2023-03-15 10:40 | EXP.PAIN.PRO ---
Procedure Date: 03/15/23 Time: 10:00 Anesthesiologist:: Davi Cowan CRNA Complications:: None Pre-procedure Diagnosis:: Right sacroiliitis. Post-procedure Diagnosis:: Same. Indications for Procedure:: Very pleasant 58-year-old female comes our clinic today for right sacroiliac joint injection. Patient reports low lumbar right-sided back pain as well as right posterior hip pain. She describes the pain as constant, dull, aching, sharp and stabbing at times. She rates her pain 8/10. Patient also reports difficulty transitioning from sitting to standing. Procedure Details:: Procedure: Right sacroliliac joint injection under fluoroscopy Informed consent was obtained and the risk and benefits of the procedure were explained to the patient.~ The patient was taken to the procedure room and noninvasive monitors were placed including noninvasive blood pressure cuff and pulse oximeter.~ The patient was placed prone on the procedure table.~ The~ right hip was cleansed using Betadine as a cleansing solution.~ C-arm fluorosocpy was used to view the right SI joint.~ The skin and subcutaneous tissues were anesthetized using Lidocaine 1.5% and a 25-gauge needle.~ After this, a 22-gauge spinal needle was inserted under fluoroscopic guidance into the inferior aspect of the right SI joint.~ Omnipaque dye was injected and a good spread was seen throughout the joint.~ After this, approximately 5 mL of bupivacaine 0.25% was incrementally injected into the sacroiliac joint.~ The patient tolerated the procedure well with no complications.~ The patient was observed in the Pain Clinic, then discharged home neurologically intact.~ Plan and Disposition:: Patient was discharged without incident.
== END 2023-03-15 09:35 | disposition home or self-care (01) ==
PROVIDERS: PCP Physician Assistant; Visit Provider Nurse Anesthetist, Certified Registered
DX: M46.1 Sacroiliitis, not elsewhere classified (principal)
CPT/HCPCS: 27096; G0260

== ENCOUNTER → 2023-03-30 09:29 | Outpatient (POV) | payer MEDICARE, MEDICAID, SELFPAY ==
--- NOTE | 2023-03-30 09:40 | EXP.PAIN.SOA ---
[facility] Pain Management SOAP Note Subjective:: Patient is a pleasant 57-year-old female who presents today for follow-up of right SI injection on 03/15/2020.. We are currently treating the patient for degenerative disc disease of cervical and lumbar spine with cervical and lumbar radiculopathy symptoms, lumbar facet arthropathy, lumbar spondylosis, chronic pain syndrome, low back pain, neck pain, sacroiliitis. Today she rates her pain a 3 out of 10. She does state following this injection she had approximately 70% or more improvement and feels like it is still continuing to provide additional relief. She does state today that she has noticed that her left side was also bothering her however where the right was where most of her pain was coming from she is just now noticing how bad the left is. She states the pain is all in her low back along the left side and into her left hip. Patient does describe this as an aching, throbbing sensation that is worse with increased activity. She does state the pain is worse with increased activity or ambulation or prolonged sitting. She states the pain does interfere with activities of daily living such as cooking and cleaning. She is interested in doing the SI injection along the left side at today's visit. Patient does have a heart history with stents placed related to blockages and is on a daily blood thinner. Patient is currently managed with methocarbamol 750 mg 3 times a day and tramadol 50 mg 1 to 2 tablets a day. Patient denies any side effects from this medication. She is not requesting refills at this time. Review of Systems: General: No recent weight changes, no fever, no sleep disturbances Respiratory: No cough, no shortness of air, no recurring pulmonary infections Cardiovascular/peripheral vascular: No chest pain, no palpitations, no edema, no shortness of breath Gastrointestinal: No new onset incontinence, normal bowel movements reported Genitourinary: No new onset incontinence Musculoskeletal: Low back pain, left hip pain Psychiatric: [Normal mood/affect] Neurological: [Denies weakness in extremities], [denies balance issues] Objective:: Physical Exam: General: Alert and oriented x3, no acute distress, pleasant and cooperative Lungs: Respirations even and unlabored, symmetrical chest expansion Eyes: PERRL Musculoskeletal: Flexion and extension of lumbar [spine] somewhat guarded secondary to pain, [antalgic gait noted] point tenderness along left SI with positive left Yue's, Thomas's, Gaenslen's, compression and distraction exam Neurological: Speech clear, no gross sensory deficit Assessment:: Degenerative disc disease of cervical and lumbar spine with cervical and lumbar radiculopathy symptoms, lumbar facet arthropathy, lumbar spondylosis, chronic pain syndrome, low back pain, neck pain, sacroiliitis Plan:: Patient has had significant improvement following her right SI injection however she is experiencing worsening pain in her low back along the left side and into her left hip. Patient had limited range of motion of her lumbar spine and point tenderness at her left SI with a positive left Yue's, Thomas's, Gaenslen's, compression and distraction exam during today's assessment. I have discussed with the patient that she may benefit from a diagnostic SI injection on the left side. Risk and benefits were discussed with the patient and she would like to proceed forward with this plan of care. We will schedule the patient for a left diagnostic SI injection. Patient has been instructed to contact the clinic with any concerns before the next appointment. Dr. Davis has reviewed this note and agrees with this plan of care. This note was dictated using voice recognition software and make contain errors or omissions. [facility] Disclaimer: The information contained in this section may have been updated after the patient was seen, as this information can be updated by other users. Medical History (Reviewed 03/29
[2023-03-30 10:00] VITALS: BP 121/67; PULSE 57; RESP 18; O2SAT 96; BMI 41.0
== END ==
PROVIDERS: PCP Physician Assistant; Visit Provider Nurse Practitioner Family
DX: M50.10 Cervical disc disorder with radiculopathy, unspecified cervical region (principal); M51.16 Intervertebral disc disorders with radiculopathy, lumbar region; M47.26 Other spondylosis with radiculopathy, lumbar region; G89.4 Chronic pain syndrome; M46.1 Sacroiliitis, not elsewhere classified
CPT/HCPCS: 99212; G0463

== ENCOUNTER 2023-05-06 08:25 | Day surgery (SDC) | payer MEDICARE, MEDICAID, SELFPAY ==
[2023-05-06 08:39] VITALS: BP 133/78; PULSE 66; RESP 16; TEMP 36.2; O2SAT 97; BMI 42.0
[2023-05-06 08:42] VITALS: BP 115/60; PULSE 65; O2SAT 96
[2023-05-06 08:45] VITALS: BP 115/60; PULSE 66; O2SAT 96
[2023-05-06 08:46] VITALS: BP 134/53; PULSE 61; RESP 16; O2SAT 97
--- NOTE | 2023-05-06 08:59 | EXP.PAIN.PRO ---
Procedure Date: 05/06/23 Time: 08:35 Anesthesiologist:: Davi Cowan CRNA Complications:: None Pre-procedure Diagnosis:: Left sacroiliitis Post-procedure Diagnosis:: Same Indications for Procedure:: Very pleasant 58-year-old female comes our clinic today for left sacroiliac joint injection. Upon examination patient has extreme point tenderness over the left sacroiliac joint. Patient reports having difficulty transitioning from sitting to standing. She rates the pain 7/10. Patient had good success with right sacroiliac joint several months ago. Procedure Details:: Procedure: Left sacroiliac injection under fluoroscopy Informed consent was obtained and the risk and benefits of the procedure were explained to the patient.~ The patient was taken to the procedure room and noninvasive monitors were placed including noninvasive blood pressure cuff and pulse oximeter.~ The patient was placed prone on the procedure table.~ The~ left hip was cleansed using Betadine as a cleansing solution.~ C-arm fluorosocpy was used to view the left SI joint.~ The skin and subcutaneous tissues were anesthetized using Lidocaine 1.5% and a 25-gauge needle.~ After this, a 22-gauge spinal needle was inserted under fluoroscopic guidance into the inferior aspect of the left SI joint.~ Omnipaque dye was injected and a good spread was seen throughout the joint.~ After this, approximately 5 mL of bupivacaine 0.25% and Depo-Medrol 40 mg was incrementally injected into the sacroiliac joint.~ The patient tolerated the procedure well with no complications.~ The patient was observed in the Pain Clinic for a period of 30-45 minutes, then discharged home neurologically intact.~ Plan and Disposition:: Patient was discharged without incident.
== END 2023-05-06 08:46 | disposition home or self-care (01) ==
LOC: SC.PAINP 08:31
PROVIDERS: PCP Physician Assistant; Visit Provider Nurse Anesthetist, Certified Registered
DX: M46.1 Sacroiliitis, not elsewhere classified (principal)
CPT/HCPCS: 27096; G0260; J1040

== ENCOUNTER → 2023-05-24 08:38 | Outpatient (POV) | payer MEDICARE, MEDICAID, SELFPAY ==
[2023-05-24 08:50] VITALS: BP 137/47; PULSE 62; RESP 18; O2SAT 95; BMI 42.0
--- NOTE | 2023-05-24 09:26 | EXP.PAIN.SOA ---
[facility] Pain Management SOAP Note Subjective:: Patient is a very pleasant 58-year-old female comes our clinic today for follow-up of injection after receiving left sacroiliac joint injection. She reports 80% improvement terms of her overall left posterior hip pain as well as left anterior thigh pain. Patient's main complaint today is right posterior hip pain with right anterior thigh pain including the knee. Patient has had successful right sacroiliac joint injection in the past. She is requesting a repeat of the right sacroiliac joint injection. Upon examination the patient has extreme point tenderness over the right sacroiliac joint. She has positive Yue's test. Positive Gaenslen's test. Positive right sacroiliac joint compression test. Patient has completed multiple rounds of physical therapy in the last 6 months. Continues with home exercise program. Takes tramadol 50 mg 1 p.o. as needed. Also a muscle relaxer as needed. Patient's Jose and UDS have been appropriate. Patient reports having difficulty transitioning from sitting to standing. Pain intensifies significantly over the right posterior hip as well as right lumbar spine with ambulation. Sitting for any length of time increases pain over the same area. She rates her pain 8/10. Objective:: Patient is awake alert [place] x 3. No acute distress. Flexion-extension lumbar spine somewhat guarded secondary to pain. Deep tendon reflexes upper lower extremities normal. Motor strength upper and lower extremities normal. There is no gross sensory deficit. Gait is normal. Assessment:: Degenerative disc lumbar spine multilevels. Lumbar radiculopathy. Bilateral sacroiliitis. Plan:: I recommend right sacroiliac joint injection. Patient has had significant improvement terms of her overall right posterior hip pain as well as right low lumbar pain and right leg radiculopathy symptoms with right sacroiliac joint injection in the past. Discussed in detail with the patient regarding the injection. Answered her questions. She wishes to proceed. [facility] Disclaimer: The information contained in this section may have been updated after the patient was seen, as this information can be updated by other users. Medical History Abnormal electrocardiogram [ECG] [EKG] Abnormal liver function tests Anxiety Back pain, chronic Bipolar 1 disorder COPD (chronic obstructive pulmonary disease) Coronary artery abnormality Coronary artery calcification seen on CT scan Coronary artery disease Depression Dyspnea Elevated liver enzymes Family history of ischemic heart disease before age 50 Father-HI @ 42 Brother-KAVITHA @42 Brother-CABG @45 Mother-AFib Former smoker Hyperlipidemia Hypertension Insomnia Morbid obesity with BMI of 40.0-44.9, adult Neck pain, chronic Typical angina 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 H/O colonoscopy H/O lateral meniscus repair of left knee H/O lateral meniscus repair of right knee H/O splenectomy History of appendectomy History of bladder surgery History of cholecystectomy Tubal ligation status Family History Other No significant family history Social History Smoking Status: Current every day smoker tobacco type: e-cigarettes alcohol intake: never substance use type: denies use current occupational status: other Travel in the last 8 weeks: None
== END ==
LOC: SC.PAIN 08:40
PROVIDERS: PCP Physician Assistant; Visit Provider Nurse Anesthetist, Certified Registered
DX: M51.16 Intervertebral disc disorders with radiculopathy, lumbar region (principal); M46.1 Sacroiliitis, not elsewhere classified
CPT/HCPCS: 99212; G0463

== ENCOUNTER 2023-06-07 10:29 | Day surgery (SDC) | payer MEDICARE, MEDICAID, SELFPAY ==
[2023-06-07 10:41] VITALS: BP 112/38; BP 126/59; PULSE 57; PULSE 62; PULSE 66; RESP 18; TEMP 36.3; O2SAT 95; BMI 41.0
[2023-06-07] MEDS: BUPIVACAINE 0.25% 10ML INJ 25 MG IJ (10:43)
[2023-06-07] MEDS: methylPREDNISolone ACETATE 80MG/ML VIAL 80 MG (10:43)
[2023-06-07] MEDS: LIDOCAINE 1% 5ML PF VIAL 5 ML (10:44)
[2023-06-07 10:54] VITALS: BP 116/69; PULSE 62; RESP 18; O2SAT 95
--- NOTE | 2023-06-07 10:58 | P.PCN_ITS ---
Procedure Date: 06/07/23 Time: 10:30 Anesthesiologist:: Davi Cowan CRNA Complications:: None Pre-procedure Diagnosis:: Right sacroiliitis. Post-procedure Diagnosis:: Same. Indications for Procedure:: Patient is a very pleasant 58-year-old female comes to clinic today for right sacroiliac joint injection. Patient reports right posterior hip pain radiating to the anterior thigh. She rates her pain 7/10. Patient has responded very well to this injection in the past bilaterally. Patient reports having difficulty transitioning from sitting to standing due to right posterior hip pain. Procedure Details:: Procedure: Right sacroliliac joint injection under fluoroscopy Informed consent was obtained and the risk and benefits of the procedure were explained to the patient.~ The patient was taken to the procedure room and noninvasive monitors were placed including noninvasive blood pressure cuff and pulse oximeter.~ The patient was placed prone on the procedure table.~ The~ right hip was cleansed using Betadine as a cleansing solution.~ C-arm fluorosocpy was used to view the right SI joint.~ The skin and subcutaneous tissues were anesthetized using Lidocaine 1.5% and a 25-gauge needle.~ After this, a 22-gauge spinal needle was inserted under fluoroscopic guidance into the inferior aspect of the right SI joint.~ Omnipaque dye was injected and a good spread was seen throughout the joint.~ After this, approximately 5 mL of bu pivacaine 0.25% and Depo-Medrol 40 mg was incrementally injected into the sacroiliac joint.~ The patient tolerated the procedure well with no complications.~ The patient was observed in the Pain Clinic, then discharged home neurologically intact.~ Plan and Disposition:: Patient was discharged without incident.
== END 2023-06-07 10:54 | disposition home or self-care (01) ==
LOC: SC.PAINP 10:31
PROVIDERS: PCP Physician Assistant; Visit Provider Nurse Anesthetist, Certified Registered
DX: M46.1 Sacroiliitis, not elsewhere classified (principal)
CPT/HCPCS: 27096; G0260; J1040

== ENCOUNTER → 2023-06-22 10:34 | Outpatient (POV) | payer MEDICARE, MEDICAID, SELFPAY ==
--- NOTE | 2023-06-22 11:53 | A.OFFVIS_ITS ---
[facility] Pain Management SOAP Note Subjective:: Patient is a pleasant 57-year-old female who presents today for follow-up. We are currently treating the patient for degenerative disc disease of cervical and lumbar spine with cervical and lumbar radiculopathy symptoms, lumbar facet arthropathy, lumbar spondylosis, chronic pain syndrome, low back pain, neck pain, sacroiliitis. Today she rates her pain a 6 out of 10. Patient states she recently fell during the week that there was bad weather and snow landing on her right side. Patient states she had previously just had a right SI injection on the that did provide significant relief of more than 80% and was still working up till that point. Today she states her pain is all in and around her right hip and describes it as an aching, throbbing sensation that is worse with increased activity. She states the pain does interfere with activities of daily living such as cooking and cleaning. Patient does also state that she is starting to experience more neck pain and describes this as an aching, throbbing sensation and denies any radiating symptoms into her upper extremities. Patient has previously had a cervical RFA that did provide significant relief that lasted for years up until the last couple of months. Patient is interested in future for having this repeated. Patient denies any recent cervical imaging. Patient does have a heart history with stents placed related to blockages and is on a daily blood thinner. Patient is currently managed with methocarbamol 750 mg 3 times a day and tramadol 50 mg 1 to 2 tablets a day. Patient denies any side effects from this medication. She does state that she feels like the medicine is not working as well as it previously had. Her Jose has been reviewed and is appropriate. Review of Systems: General: No recent weight changes, no fever, no sleep disturbances Respiratory: No cough, no shortness of air, no recurring pulmonary infections Cardiovascular/peripheral vascular: No chest pain, no palpitations, no edema, no shortness of breath Gastrointestinal: No new onset incontinence, normal bowel movements reported Genitourinary: No new onset incontinence Musculoskeletal: Right hip pain Psychiatric: [Normal mood/affect] Neurological: [Denies weakness in extremities], [denies balance issues] Objective:: Physical Exam: General: Alert and oriented x3, no acute distress, pleasant and cooperative Lungs: Respirations even and unlabored, symmetrical chest expansion Eyes: PERRL Musculoskeletal: Flexion and extension of lumbar [spine] somewhat guarded secondary to pain, [antalgic gait noted] extreme point tenderness along right greater trochanteric bursa, positive Kemps test of cervical spine Neurological: Speech clear, no gross sensory deficit Cervical spine MRI without contrast [facility] 07/16/2020 Findings: Multiplanar MR imaging was obtained of the cervical spine. There is abnormal decreased signal throughout the cervical disc. Abnormal loss of height at C5-6 and C6-7. Endplate reactive signal change at C6-7. There is no m alalignment. The cervical cord demonstrates normal signal and configuration. C2-3: No evidence of significant disc bulge or protrusion. No significant facet hypertrophy. C3-4: No evidence of significant bulge or protrusion or facet hypertrophy. C4-5: No evidence of significant bulge or protrusion no significant facet hypertrophy. C5-6: There is a mild diffuse disc bulge. Mild bilateral neuroforaminal narrowing. No significant canal stenosis. C6-7: Mild diffuse disc bulge with mild bilateral neuroforaminal narrowing. No significant canal stenosis. C7-T1: No evidence of significant bulge or protrusion no facet hypertrophy. Incidental note made of high signal focus in the T2 vertebra consistent with hemangioma MRI lumbar spine without contrast [facility] 11/09 Findings: Multiplanar MR imaging of the lumbar spine performed without contrast. On the sagittal T2 weighted images disc degeneration is seen at multiple levels. Mild retrolisthesis of L4 on L5. No evidence of fracture. Conus unremarkable. L1-2:Annular bulge present. L2-3: Annular bulge with facet arthropathy and vertebral osteophytes. L3-4: No significant canal stenosis or neuroforaminal narrowing. L4-5: Annular bulge present with mild bilateral neuroforaminal narrowing. L5-S1: Annular bulge with mild right and moderate left neuroforaminal narrowing Assessment:: Degenerative disc disease of cervical and lumbar spine with cervical and lumbar radiculopathy symptoms, lumbar facet arthropathy, lumbar spondylosis, sacroiliitis, right greater trochanteric bursitis Plan:: Patient is experiencing worsening pain in her right hip related to a recent fall. Patient did have extreme point tenderness along her right greater trochanteric bursa during today's exam. I have discussed with the patient that she may benefit from a right bursa injection. Risk and benefits were discussed with the patient and she would like to proceed forward with this plan of care. I also discussed with the patient that I will increase her muscle relaxer of methocarbamol to 1000 mg 3 times daily as needed and also send in a refill of her tramadol 50 mg twice a day and provide a 1 month supply of these medications. Patient will be scheduled for a right greater trochanteric bursa injection. I have discussed with the patient that in future we can proceed forward with doing additional cervical medial branch blocks and as long as she has successful relief with 2 diagnostic blocks we will proceed forward with a cervical RFA injection at the a later date. I would recommend that we do C5-C6 and C6-C7 bilaterally. We will contact [facility] to get a copy of her imaging. Risks and benefits of the medication have been explained in detail to the patient. The patient does understand the risk of dependence on the medication when given over a prolonged period. Patient has been advised of risks of oversedation with the prescribed medication. Narcan has been offered to the paitent in the event of oversedation. Patient has been advised that a family member should also be educated regarding administration of Narcan. The patient has been advised to consult with his/her primary care provider and pharmacist regarding drug-drug interaction of medications currently prescribed. Patient has been prescribed a controlled substance after being counseled on the medication, medication safety, and possible side effects. Opioid contract was reviewed and signed by the patient, and that they have agreed to all of the terms set forth by our compliance program. Patient has been instructed to contact the clinic with any concerns before the next appointment. Dr. Davis has reviewed this note and agrees with this plan of care. This note was dictated using voice recognition software and make contain errors or omissions. [facility] Disclaimer: The information contained in this section may have been updated after the patient was seen, as this information can be updated by other users. Medical History Abnormal electrocardiogram [ECG] [EKG] Abnormal liver function tests Anxiety Back pain, chronic Bipolar 1 disorder COPD (chronic obstructive pulmonary disease) Coronary artery abnormality Coronary artery calcification seen on CT scan Coronary artery disease Depression Dyspnea Elevated liver enzymes Family history of ischemic heart disease before age 50 Former smoker History of COPD Hyperlipidemia Hypertension Insomnia Morbid obesity with BMI of 40.0-44.9, adult Neck pain, chronic Pulmonary emphysema Smoking greater than 30 pack years Typical angina 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 H/O colonoscopy H/O lateral meniscus repair of left knee H/O lateral meniscus repair of right knee H/O splenectomy History of appendectomy History of bladder surgery History of cholecystectomy Tubal ligation status Family History Other No significant family history Social History Smoking Status: Current every day smoker tobacco type: e-cigarettes alcohol intake: never substance use type: denies use current occupational status: other Travel in the last 8 weeks: None
[2023-06-22 12:56] VITALS: BP 137/49; PULSE 57; RESP 18; O2SAT 97; BMI 40.8
== END | disposition home or self-care (01) ==
PROVIDERS: PCP Physician Assistant; Visit Provider Nurse Practitioner Family
DX: M47.892 Other spondylosis, cervical region (principal); M50.122 Cervical disc disorder at C5-C6 level with radiculopathy; M51.16 Intervertebral disc disorders with radiculopathy, lumbar region; M47.26 Other spondylosis with radiculopathy, lumbar region; M46.1 Sacroiliitis, not elsewhere classified; M70.61 Trochanteric bursitis, right hip
CPT/HCPCS: 99212; G0463

== ENCOUNTER 2023-06-25 11:40 | Emergency (ER) | payer MEDICARE, MEDICAID, SELFPAY ==
[2023-06-25 11:50] VITALS: BP 106/61; PULSE 58; RESP 20; TEMP 36.8; O2SAT 97; BMI 34.7
[2023-06-25] MEDS: TET/DIPHTH/PERT-ADULT 0.5ML SYRINGE 0.5 ML IM (12:15)
--- NOTE | 2023-06-25 12:30 | ED_ITS ---
Discharge Plan Disposition Patient Disposition: Home, Self-Care Condition: Good Prescriptions Prescriptions: New cephalexin [cephalexin] 500 mg tablet 500 mg PO BID 10 Days Qty: 20 0RF No Action bisoprolol fumarate 10 mg tablet 10 mg PO DAILY Qty: 30 3RF ProAir RespiClick 90 mcg/actuation aerosol powdr breath activated 1 inh inhalation DIRECTED lamotrigine 200 mg tablet 200 mg PO DIRECTED buspirone 10 mg tablet 10 mg PO TID hydroxyzine HCl 25 mg tablet 25 mg PO TID escitalopram oxalate 20 mg tablet 20 mg PO DIRECTED lurasidone [Latuda] 60 mg tablet 60 mg PO DIRECTED esomeprazole magnesium [Nexium] 20 mg capsule,delayed release(DR/EC) 20 mg PO DAILY trazodone 50 mg tablet 50 mg PO HS nitroglycerin 0.4 mg tablet, sublingual 0.4 mg sublingual Q5M PRN (Reason: chest pain) Qty: 25 0RF Rx Instructions: do not exceed 3 doses per episode lisinopril-hydrochlorothiazide 20-25 mg tablet 1 tab PO BID Qty: 180 3RF isosorbide mononitrate 30 mg tablet extended release 24 hr 30 mg PO DAILY Qty: 90 1RF atorvastatin 80 mg tablet 80 mg PO DAILY Qty: 90 3RF clopidogrel [Plavix] 75 mg tablet 75 mg PO DAILY Qty: 90 1RF methocarbamol 750 mg tablet 750 mg PO TID Qty: 90 1RF methocarbamol 500 mg tablet 1,000 mg PO TID PRN (Reason: muscle spasm) Qty: 180 0RF tramadol 50 mg tablet 50 mg PO BID Qty: 60 1RF aspirin 81 mg tablet,chewable 81 mg PO DAILY Anoro Ellipta 62.5-25 mcg/actuation blister with device See Rx Instructions .ROUTE .COMPLEX Rx Instructions: INHALE 1 PUFF BY MOUTH ONCE A DAY Referrals Follow up/Referrals: Gabriela Mari PA [Primary Care Provider] - See instructions Activity Restrictions/Add. Instructions Additional Instructions/Restrictions: keep wound clean and dry return in 10 days for suture removal monitor for s/s of infection return for any issues Clinical Impressions Clinical Impression: Laceration Instructions Patient Instructions: DI for Laceration Repair, DI for Laceration Repair -- Simple Discharge ED Provider: Daniella ([facility])Jessee [facility] [place] HPI General Stated complaint: left cut on middle finger Mode of Arrival: Ambulatory Source of Information: Patient Limitations: No Limitations Time Seen by Provider: 06/25/23 12:31 Description of Symptoms (Recalled from Triage Doc. by RN): PATIENT C/O LAC ERATION TO LEFT MIDDLE FINGER AFTER CUTTING IT WITH A KNIFE THIS MORNING. PATIENT REPORTS BEING ON BLOOD THINNERS. TDAP STATUS UNKNOWN HEENT Symptoms (Recalled from RN notes): No Resp Symptoms (Recalled from RN notes): No Skin Symptoms (Recalled from RN notes): Yes MS Symptoms (Recalled from RN notes): No Functional Status (Recalled from RN notes): WNL History of Present Illness Provider Complaint: 58 yr old female presents for lac to left middle finger, cut it while cutting sausage this am unknown tdap status Related Data Home Medications Medication Instructions Recorded Confirmed albuterol sulfate 90 mcg/actuation 1 inh inhalation DIRECTED 09/02/22 06/22/23 breath activated powder inhaler Breathing problems (ProAir RespiClick) buspirone 10 mg tablet 10 mg PO TID MOOD 09/02/22 06/22/23 escitalopram oxalate 20 mg tablet 20 mg PO DIRECTED MOOD 09/02/22 06/22/23 esomeprazole magnesium 20 mg 20 mg PO DAILY STOMACH 09/02/22 06/22/23 capsule,delayed release (Nexium) hydroxyzine HCl 25 mg tablet 25 mg PO TID MOOD 09/02/22 06/22/23 lamotrigine 200 mg tablet 200 mg PO DIRECTED SEIZURES 09/02/22 06/22/23 lurasidone 60 mg tablet (Latuda) 60 mg PO DIRECTED MOOD 09/02/22 06/22/23 trazodone 50 mg tablet 50 mg PO HS SLEEP 11/01/22 06/22/23 aspirin 81 mg chewable tablet 81 mg PO DAILY Blood Thinner 12/23/22 06/22/23 umeclidinium 62.5 mcg-vilanterol See Rx Instructions .Route 12/23/22 06/22/23 25 mcg/actuation powdr for .COMPLEX Breathing Problems inhalation (Anoro Ellipta) Previous Rx's Medication Instructions Recorded lisinopril 20 1 tab PO BID BLOOD PRESSURE #180 12/06/22 mg-hydrochlorothiazide 25 mg tablet tabs nitroglycerin 0.4 mg sublingual 0.4 mg sublingual Q5M PRN chest 12/21/22 tablet pain #25 tabs isosorbide mononitrate 30 mg 30 mg PO DAILY Chest Pain #90 tabs 02/21/23 tablet,extended release 24 hr bisoprolol fumarate 10 mg tablet 10 mg PO DAILY #30 tabs 02/22/23 methocarbamol 750 mg tablet 750 mg PO TID . #90 tabs 02/28/23 atorvastatin 80 mg tablet 80 mg PO DAILY Cholesterol #90 tabs 03/14/23 clopidogrel 75 mg tablet (Plavix) 75 mg PO DAILY Blood Thinner #90 04/12/23 tabs methocarbamol 500 mg tablet 1,000 mg PO TID PRN muscle spasm 06/22/23 #180 tabs tramadol 50 mg tablet 50 mg PO BID Pain #60 tabs 06/22/23 cephalexin 500 mg tablet 500 mg PO BID 10 days #20 tabs 06/25/23 Allergies Allergy/AdvReac Type Severity Reaction Status Date / Time No Known Allergies Allergy Verified 06/07/23 10:41 Worker's Comp Is this a Worker's Comp case?: No [facility] Disclaimer: The information contained in this section may have been updated after the patient was seen, as this information can be updated by other users. 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) Abnormal electrocardiogram [ECG] [EKG] Abnormal liver function tests Anxiety Back pain, chronic Bipolar 1 disorder COPD (chronic obstructive pulmonary disease) Coronary artery abnormality Coronary artery calcification seen on CT scan Coronary artery disease Depression Dyspnea Elevated liver enzymes Family history of ischemic heart disease before age 50 Former smoker History of COPD Hyperlipidemia Hypertension Insomnia Morbid obesity with BMI of 40.0-44.9, adult Neck pain, chronic Pulmonary emphysema Smoking greater than 30 pack years Typical angina 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 , 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 H/O lateral meniscus repair of left knee H/O lateral meniscus repair of right knee H/O splenectomy History of appendectomy History of bladder surgery History of cholecystectomy Tubal ligation status Family History , 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) No significant family history Social 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 , 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) Smoking Status: Current every day smoker tobacco type: e-cigarettes alcohol intake: never substance use type: denies use current occupational status: other Travel in the last 8 weeks: None ROS Obtained: Yes All systems reviewed & no additional complaints except as documented Constitutional Constitutional: Reports system reviewed and no additional complaints, except as documented Eyes Eyes: Reports system reviewed and no additional complaints, except as documented ENT Ears, Nose, Mouth, and Throat: Reports system reviewed and no additional complaints, except as documented Cardiovascular Cardiovascular: Reports system reviewed and no additional complaints, except as documented Respiratory Respiratory: Reports system reviewed and no additional complaints, except as documented Musculoskeletal Musculoskeletal: Reports system reviewed and no additional complaints, except as documented Integumentary/Breasts Skin/Breast: Reports system reviewed and no additional complaints, except as documented, Reports as per HPI and Reports other (laceration) Endocrine Endocrine: Reports system reviewed and no additional complaints, except as documented Hematologic/Lymphatic Henatologic/Lymphatic: Reports system reviewed and no additional complaints, except as documented Allergic/Immunologic Allergic/Immunologic: Reports system reviewed and no additional complaints, except as documented Physical Exam General General appearance: alert Head Head exam: atraumatic Eye Eye exam: Present normal appearance ENT ENT exam: Present normal exam Respiratory Respiratory exam: Present normal lung sounds bilaterally Cardiovascular Cardiovascular exam: Present regular rate and normal rhythm Expanded Upper Extremity Exam Left: Hand L/R front image: 1. laceration Neurological Exam Neurological exam: Present alert and oriented X3 Skin Skin exam: Present warm and other Medical Decision Making Medical Records Medical records reviewed: Yes I reviewed the patient's medical records. Jose Inquiry Pt receiving controlled substance: No Jose was queried for this patient: No Vital Signs: 06/25/23 11:50 Temperature 98.2 F Temperature Source Oral Pulse Rate [Right Brachial] 58 L Respiratory Rate 20 Blood Pressure [Right Arm] 106/61 L Blood Pressure Mean [Right Arm] 76 Blood Pressure Source [Right Arm] Automatic Cuff Blood Pressure Position [Right Arm] Sitting 02 Sat by Pulse Oximetry 97 Oxygen Delivery Method Room Air Lab Data Lab results reviewed: Yes I reviewed the patient's lab results. Orders (Tests/Meds): ED MEDICATIONS Generic Name Dose Route Start Last Admin Trade Name Freq PRN Reason Stop Dose Admin Tetanus/Reduced Diphtheria/Acell Pertussis 0.5 ml 06/25/23 12:09 Tet/Diphth/Pert-Adult 0.5ml Syringe IM 06/25/23 12:10 .ONCE ONE Procedures Laceration Laceration 1: Site: finger Side (If applicable): left Size (cm): 1 Description: linear and clean Depth: simple, single layer Local Anesthetic: lidocaine 1% Amount of anesthesia used (mL): 2 Pre-repair: wound explored, irrigated extensively and deep structures intact Skin layer closed with: nylon Size (cm): 4-0 Number of sutures: 3 Technique: simple, interrupted
[2023-06-25 12:40] VITALS: BP 106/61; PULSE 58; RESP 20; TEMP 36.8; O2SAT 97
== END 2023-06-25 12:49 | disposition home or self-care (01) ==
PROVIDERS: Emergency Provider Nurse Practitioner Family; PCP Physician Assistant
DX: S61.213A Laceration without foreign body of left middle finger without damage to nail, initial encounter (principal); W26.0XXA Contact with knife, initial encounter; F17.290 Nicotine dependence, other tobacco product, uncomplicated; J44.9 Chronic obstructive pulmonary disease, unspecified; I25.119 Atherosclerotic heart disease of native coronary artery with unspecified angina pectoris; I11.9 Hypertensive heart disease without heart failure; E78.5 Hyperlipidemia, unspecified; E66.9 Obesity, unspecified; Z68.34 Body mass index [BMI] 34.0-34.9, adult; Z23 Encounter for immunization
CPT/HCPCS: 12001; 90471; 90715; 99213; 99214; G0463

== ENCOUNTER 2023-07-12 11:28 | Day surgery (SDC) | payer MEDICARE, MEDICAID, SELFPAY ==
[2023-07-12 11:39] VITALS: BP 135/80; PULSE 63; RESP 16; TEMP 36.1; O2SAT 98; BMI 41.0
[2023-07-12] MEDS: methylPREDNISolone ACETATE 80MG/ML VIAL 80 MG (11:45)
[2023-07-12] MEDS: LIDOCAINE 1% 5ML PF VIAL 5 ML (11:45)
[2023-07-12 11:46] VITALS: BP 146/73; PULSE 58; RESP 18; O2SAT 95
[2023-07-12] MEDS: BUPIVACAINE 0.25% 10ML INJ 25 MG IJ (11:46)
[2023-07-12 11:48] VITALS: BP 146/73; PULSE 58; RESP 18; O2SAT 95
[2023-07-12 11:55] VITALS: BP 120/50; PULSE 59; RESP 18; O2SAT 98
--- NOTE | 2023-07-12 12:05 | EXP.PAIN.PRO ---
Procedure Date: 07/12/23 Time: 11:50 Anesthesiologist:: Davi Cowan CRNA Complications:: None Pre-procedure Diagnosis:: Degenerative disc lumbar spine multilevels. Lumbar radiculopathy. Degenerative disc thoracic spine multilevels. Thoracic radiculopathy. Status post recent kyphoplasty thoracic spine. Post-procedure Diagnosis:: Same. Indications for Procedure:: Patient is a very pleasant
--- NOTE | 2023-07-12 12:08 | P.PCN_ITS ---
Procedure Date: 07/12/23 Time: 11:30 Anesthesiologist:: Davi Cowan CRNA Complications:: None Pre-procedure Diagnosis:: Right trochanteric bursitis Post-procedure Diagnosis:: Same. Indications for Procedure:: Patient is a very pleasant 58-year-old female comes our clinic today for a right trochanteric bursa injection. Patient complains of right lateral thigh pain that she describes as constant, dull, aching. She rates the pain 10/10. She has extreme point tenderness over the right trochanteric bursa. Procedure Details:: Procedure: Right trochanteric bursa injection under fluoroscopy We then moved to the right trochanteric bursa.~ C-arm fluoroscopy was used to view the left greater trochanter.~ The skin and subcutaneous tissues overlying the right greater trochanter were anesthetized using lidocaine, 1.5% and a 25- gauge needle.~ After this, a 22-gauge spinal needle was inserted and advanced until it contacted the right greater trochanter.~ Dye was injected and good spread was seen throughout the right trochanteric bursa. After this, approximately 5 mL of bupivacaine, 0.25% and Depo-Medrol, 40 mg was incrementally injected into the right right trochanteric bursa.~ The patient tolerated the procedure well with no complications. Plan and Disposition:: Patient was discharged without incident.
== END 2023-07-12 11:55 | disposition home or self-care (01) ==
PROVIDERS: PCP Physician Assistant; Visit Provider Nurse Anesthetist, Certified Registered
DX: M70.61 Trochanteric bursitis, right hip (principal)
CPT/HCPCS: 20610; 77002; J1040

== ENCOUNTER → 2023-07-27 11:10 | Outpatient (POV) | payer MEDICARE, MEDICAID, SELFPAY ==
--- NOTE | 2023-07-27 11:15 | EXP.PAIN.SOA ---
[facility] Pain Management SOAP Note Subjective:: Patient is a pleasant 57-year-old female who presents today for follow-up of right bursa injection on 07/12/2023. We are currently treating the patient for degenerative disc disease of cervical and lumbar spine with cervical and lumbar radiculopathy symptoms, lumbar facet arthropathy, lumbar spondylosis, chronic pain syndrome, low back pain, neck pain, sacroiliitis. Today she rates her pain a 2 out of 10 for her right hip following this injection. She states that it did help significantly. She does state though that her neck is giving her lots of more pain that is been going on the last month. She rates it an 8 out of 10. Patient states that she has not had any new injury. She states that this is a chronic issue that she has had injections and cervical RFA in the past that did provide significant improvement of more than 50% and lasted almost a year. Patient does state that she previously had the cervical RFA and it did allow her to have overall improved function with decreased pain symptoms. Today she states that she is noticing more aching, throbbing sensation all within her neck that is worse with certain movements such as bending, twisting or lifting. Patient states it is interfering with her ability perform activities of daily living such as cooking and cleaning. Patient states that even her medication does not seem to be working as well now due to the increased pain in her neck. Patient does have a heart history with stents placed related to blockages and is on a daily blood thinner. Patient is currently managed with methocarbamol 750 mg 3 times a day and tramadol 50 mg 1 to 2 tablets a day. Patient denies any side effects from this medication. Her Jose has been reviewed and is appropriate. Review of Systems: General: No recent weight changes, no fever, no sleep disturbances Respiratory: No cough, no shortness of air, no recurring pulmonary infections Cardiovascular/peripheral vascular: No chest pain, no palpitations, no edema, no shortness of breath Gastrointestinal: No new onset incontinence, normal bowel movements reported Genitourinary: No new onset incontinence Musculoskeletal: Neck pain Psychiatric: [Normal mood/affect] Neurological: [Denies weakness in extremities], [denies balance issues] Objective:: Physical Exam: General: Alert and oriented x3, no acute distress, pleasant and cooperative Lungs: Respirations even and unlabored, symmetrical chest expansion Eyes: PERRL Musculoskeletal: Flexion and extension of cervical [spine] somewhat guarded secondary to pain, [antalgic gait noted] positive Kemps test Neurological: Speech clear, no gross sensory deficit Assessment:: Degenerative disc disease of cervical and lumbar spine with cervical and lumbar radiculopathy symptoms, lumbar facet arthropathy, lumbar spondylosis, chronic pain syndrome, low back pain, neck pain, sacroiliitis Plan:: Patient did previously have a cervical RFA approximately 1 year ago that did provide significant improvement of more than 50% and lasting up until the last month. Patient is experiencing more limited range of motion of her cervical spine with a positive Kemps test during today's visit. I have reviewed over the risk and benefits of the cervical RFA and she would like to proceed forward with this plan of care. Patient is currently on blood thinners and will have to stop this medication prior to this procedure. Patient has tried and failed conservative therapies. Patient will be submitted for a cervical RFA C5-C6 and C6-C7 under fluoroscopy. I will also refill the patient's methocarbamol 750 mg 3 times a day and tramadol 50 mg 1 to 2 tablets a day and provide a 1 month supply of these medications. Patient has been instructed to contact the clinic with any concerns before the next appointment. Dr. Davis has reviewed this note and agrees with this plan of care. This note was dictated using voice recognition software and make contain errors or omissions. [facility] Disclaimer: The information contained in this section may have been updated after the patient was seen, as this information can be updated by other users. Medical History , [employer]) Abnormal electrocardiogram [ECG] [EKG] Abnormal liver function tests Anxiety Back pain, chronic Bipolar 1 disorder COPD (chronic obstructive pulmonary disease) Coronary artery abnormality Coronary artery calcification seen on CT scan Coronary artery disease Depression Dyspnea Elevated liver enzymes Family history of ischemic heart disease before age 50 Former smoker History of COPD Hyperlipidemia Hypertension Insomnia Morbid obesity with BMI of 40.0-44.9, adult Neck pain, chronic Pulmonary emphysema Smoking greater than 30 pack years Typical angina 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 , [employer]) H/O colonoscopy H/O lateral meniscus repair of left knee H/O lateral meniscus repair of right knee H/O splenectomy History of appendectomy History of bladder surgery History of cholecystectomy Tubal ligation status Family History , [employer]) No significant family history Social History Smoking Status: Current every day smoker tobacco type: e-cigarettes alcohol intake: never substance use type: denies use current occupational status: other Travel in the last 8 weeks: None
[2023-07-27 11:24] VITALS: BP 146/86; PULSE 62; RESP 20; BMI 38.0
== END | disposition home or self-care (01) ==
PROVIDERS: PCP Physician Assistant; Visit Provider Nurse Practitioner Family
DX: M50.123 Cervical disc disorder at C6-C7 level with radiculopathy (principal); M51.16 Intervertebral disc disorders with radiculopathy, lumbar region; M47.26 Other spondylosis with radiculopathy, lumbar region; G89.4 Chronic pain syndrome; M46.1 Sacroiliitis, not elsewhere classified
CPT/HCPCS: 99212; G0463

== ENCOUNTER 2023-08-05 07:44 | Outpatient (CLI) | payer MEDICARE, MEDICAID, SELFPAY ==
[2023-08-05 09:40] VITALS: PULSE 54
[2023-08-05] MEDS: ALBUTEROL 0.083% 2.5 MG/3 ML NEB IH (09:40)
[2023-08-05 11:24] LABS: Basophils # 0.1 K/mm3 (0-0.2); Basophils % 0.8 % (0.1-2.0); Eosinophils # 0.2 K/mm3 (0.0-0.4); Eosinophils % 1.8 % (0.1-12.0); Hematocrit 43.4 % (37.0-47.0); Hemoglobin 13.7 g/dL (12.2-16.2); Lymphocytes # 3.9 K/mm3 (0.7-4.5); Mean Corpuscular HGB Conc 31.6 g/dL (31.8-35.4); Mean Corpuscular Hemoglobin 31.5 pg (27.0-31.2); Mean Platelet Volume 7.7 fl (7.4-10.4); Monocytes # 0.6 K/mm3 (0.1-1.0); Monocytes % 5.7 % (1.7-9.3); Neutrophils # 5.1 K/mm3 (1.8-7.8); Neutrophils % 51.7 % (37.0-80.0); Platelet Count 358 K/mm3 (142-424); Red Blood Count 4.34 M/mm3 (4.20-5.40); Red Cell Distribution Width 14.4 % (11.5-17.5); White Blood Count 9.8 K/mm3 (4.8-10.8)
[2023-08-12 18:10] LABS: D001-IgE D pteronyssinus <0.10 kU/L (Class 0); D002-IgE D farinae <0.10 kU/L (Class 0); E001-IgE Cat Dander <0.10 kU/L (Class 0); E005-IgE Dog Dander <0.10 kU/L (Class 0); E072-IgE Mouse Urine <0.10 kU/L (Class 0); G002-IgE Bermuda Grass <0.10 kU/L (Class 0); G006-IgE Timothy Grass <0.10 kU/L (Class 0); I006-IgE Cockroach, German <0.10 kU/L (Class 0); Immunoglobulin E, Total 57 IU/mL (6-495); M001-IgE Penicillium chrysogen <0.10 kU/L (Class 0); M002-IgE Cladosporium herbarum <0.10 kU/L (Class 0); M003-IgE Aspergillus fumigatus <0.10 kU/L (Class 0); M006-IgE Alternaria alternata <0.10 kU/L (Class 0); T001-IgE Maple/Box Elder <0.10 kU/L (Class 0); T003-IgE Common Silver Birch <0.10 kU/L (Class 0); T006-IgE Cedar, Mountain <0.10 kU/L (Class 0); T007-IgE Oak, White <0.10 kU/L (Class 0); T008-IgE Elm, American <0.10 kU/L (Class 0); T010-IgE Walnut <0.10 kU/L (Class 0); T011-IgE Maple Leaf Sycamore <0.10 kU/L (Class 0); T014-IgE Cottonwood <0.10 kU/L (Class 0); T015-IgE Ash, White <0.10 kU/L (Class 0); T022-IgE Pecan, Hickory <0.10 kU/L (Class 0); T070-IgE White Mulberry <0.10 kU/L (Class 0); W001-IgE Ragweed, Short <0.10 kU/L (Class 0); W011-IgE Thistle, Russian <0.10 kU/L (Class 0); W014-IgE Pigweed, Common <0.10 kU/L (Class 0); W018-IgE Sheep Sorrel <0.10 kU/L (Class 0)
== END 2023-08-05 23:59 ==
PROVIDERS: PCP Physician Assistant; Visit Provider Internal Medicine Pulmonary Disease
DX: R06.09 Other forms of dyspnea (principal); J45.909 Unspecified asthma, uncomplicated
CPT/HCPCS: 36415; 82785; 85025; 86003; 94060; 94618; 94640; 94727; 94729

== ENCOUNTER 2023-08-16 13:49 | Day surgery (SDC) | payer MEDICARE, MEDICAID, SELFPAY ==
[2023-08-16 14:00] VITALS: BP 108/54; PULSE 67; RESP 18; TEMP 36.4; O2SAT 97; BMI 41.3
[2023-08-16] MEDS: IOPAMIDOL-200 (41%);10ML VIAL 10 ML IV (14:45)
--- NOTE | 2023-08-16 14:45 | P.PCN_ITS ---
Procedure Date: 08/16/23 Time: 14:45 Anesthesiologist:: Davi Cowan CRNA Complications:: None Pre-procedure Diagnosis:: Degenerative disc cervical spine multilevels. Cervical radiculopathy. Cervical spondylosis. Multilevel cervical arthropathy Post-procedure Diagnosis:: Same. Indications for Procedure:: Patient is a pleasant 58-year-old female comes our clinic today for right C5-6, C6-7 radiofrequency ablation. Patient responded well to cervical medial branch blocks at the same levels. Patient rates her cervical neck pain as 7/10. Patient has difficulty with flexion, extension, left and right rotation of the cervical spine. Procedure Details:: Informed consent was obtained and the risk and benefits of the procedure was explained to the patient. Patient was placed prone on the procedure table. The patient was prepped and draped in sterile fashion. C-arm fluoroscopy was used to view the lumbar spine. The skin and subcutaneous tissues were anesthetized using lidocaine. I placed 20-gauge RF needles into the facet joints of C5- C6 and C6-C7 levels on the right side. We underwent sensory stimulation. There is good sensory stimulation at 0.8 V. We underwent motor stimulation. There is no motor stimulation at 2.5 V. We then anesthetized these levels with lidocaine and Depo-Medrol. I used a total of 40 mg Depo-Medrol for both levels. I then burned both levels of C5-C6 and C6-C7 facet joint/medial branches on the right s ezio for 4 minutes at 80 ?C. Patient tolerated the procedure well with no complication. Plan and Disposition:: Patient was discharged without incident.
[2023-08-16 14:52] VITALS: BP 123/61; PULSE 59; RESP 20
[2023-08-16] MEDS: LIDOCAINE 1% 5ML PF VIAL 15 ML (15:37)
[2023-08-16] MEDS: BUPIVACAINE 0.25% 10ML INJ 25 MG IJ (15:38)
== END 2023-08-16 14:53 | disposition home or self-care (01) ==
PROVIDERS: PCP Physician Assistant; Visit Provider Nurse Anesthetist, Certified Registered
DX: M50.122 Cervical disc disorder at C5-C6 level with radiculopathy (principal); M50.123 Cervical disc disorder at C6-C7 level with radiculopathy; M47.812 Spondylosis without myelopathy or radiculopathy, cervical region
CPT/HCPCS: 64633; 64634; J1030; Q9966

== ENCOUNTER 2023-09-30 10:21 | Day surgery (SDC) | payer MEDICARE, MEDICAID, SELFPAY ==
[2023-09-30 10:37] VITALS: BP 112/47; PULSE 61; RESP 16; TEMP 36.7; O2SAT 99; BMI 40.4
[2023-09-30] MEDS: IOPAMIDOL-200 (41%);10ML VIAL 10 ML IV (11:28)
[2023-09-30] MEDS: LIDOCAINE 1% 5ML PF VIAL 5 ML (11:34)
[2023-09-30] MEDS: methylPREDNISolone ACETATE 80MG/ML VIAL 80 MG (11:34)
[2023-09-30] MEDS: BUPIVACAINE 0.25% 10ML INJ 25 MG IJ (11:34)
[2023-09-30 11:35] VITALS: BP 126/68; PULSE 59; RESP 20; O2SAT 94
[2023-09-30 11:50] VITALS: BP 148/66; PULSE 64; RESP 18; O2SAT 95
--- NOTE | 2023-09-30 12:17 | P.PCN_ITS ---
Procedure Date: 09/30/23 Time: 12:17 Anesthesiologist:: Elijah Davis MD Complications:: None Pre-procedure Diagnosis:: Degenerative disc disease of cervical spine with cervical spondylosis and cervical facet arthropathy Post-procedure Diagnosis:: Same Indications for Procedure:: This patient is a pleasant 58-year-old white female who we are treating for neck pain with cervical spondylosis and cervical facet arthropathy. She has had RF ablation to the cervical facet joints of C5-C6 and C6-C7 on the right side. Will do RF ablation to the cervical facet joint/medial branches of C5-C6 and C6- C7 on the left side today. Procedure Details:: Cervical RF ablation Informed consent was obtained risk and benefits of the procedure were explained to the patient. Patient was taken to the procedure room she was placed prone on the procedure table. The neck was prepped using ChloraPrep. The skin and subcutaneous tissues were anesthetized using lidocaine. Placed 20-gauge RF needles into the facet joint/medial branches of C5-C6 and C6-C7 on the left side. We underwent sensory stimulation. There is good sensory stimulation at 1 V. We then underwent motor stimulation. There is no motor stimulation at 3 V. We anesthetize both levels with lidocaine and Depo-Medrol 40 mg. We then burned each medial branch C5-C6 and C6-C7 at 80 ?C for 4 minutes. The patient tolerated procedure well no complications Plan and Disposition:: Will follow-up with this patient in 2 weeks. Will reevaluate symptoms at that time.
== END 2023-09-30 11:50 | disposition home or self-care (01) ==
PROVIDERS: PCP Physician Assistant; Visit Provider Anesthesiology
DX: M47.812 Spondylosis without myelopathy or radiculopathy, cervical region (principal); M50.322 Other cervical disc degeneration at C5-C6 level; M50.323 Other cervical disc degeneration at C6-C7 level
CPT/HCPCS: 64633; 64634; J1010; Q9966

== ENCOUNTER 2023-10-04 07:51 | Outpatient (CLI) | payer MEDICARE, MEDICAID, SELFPAY ==
--- NOTE | 2023-10-04 07:52 | CA_ITS ---
FINAL REPORT TECHNIQUE: Color Doppler, duplex Doppler and compression sonography of the left lower extremity deep venous systems was performed. CLINICAL HISTORY: edema of LLE x 1 month, denies trauma, HTN, HLD, currently vapes, Plavix daily. COMPARISON: None FINDINGS: There is no evidence of deep venous thrombosis of the left leg from the level of the groin to the calf. The veins are patent and compressible. IMPRESSION: No evidence of deep venous thrombosis left lower extremity. Reviewed, Interpreted and Dictated by Gilles Segovia III, MD Transcribed by Fioradliza Crespo Authenticated and [facility]
--- NOTE | 2023-10-04 15:14 | CT_ITS ---
FINAL REPORT TECHNIQUE: Thin section axial images were obtained from the lung apices to the upper abdomen by computed tomography. Reformatted images were obtained and reviewed. This study was performed with techniques to keep radiation doses al low as reasonably achievable (ALARA). Individualized dose reduction techniques using automated exposure control or adjustment of mA and/or kV according to the patient's size were employed. CLINICAL HISTORY: lung cancer screening CURRENT SMOKER 1PPDX 25 YEARS COMPARISON: 09/14/2022 FINDINGS: CHEST CT LOW DOSE CTDI vol (mGy): 2.90 DLP (mGy-cm): 96.38 There is no axillary adenopathy. There is no mediastinal or hilar mass or adenopathy. The heart is normal in size. There are moderate to severe coronary artery calcifications. An LAD stent is present. There is no pericardial or pleural effusion. There is mild emphysema and mild pulmonary scarring. Lung window images demonstrate a calcified granuloma in the right upper lobe. There is a 4 mm nodule at the right lung base best seen on image 56, stable. There are several other less than 5 mm nodules which are visually stable including 2 nodules of the left major fissure. No new mass or nodule identified. Limited images of the upper abdomen are unremarkable. IMPRESSION: Lung-RADS category 2. Recommend 12 month follow up low dose chest CT. Reviewed, Interpreted and Dictated by Gilles Segovia III, MD Transcribed by Erin Mcnulty Authenticated and . [facility]
== END 2023-10-04 23:59 | disposition home or self-care (01) ==
LOC: RT 07:52
PROVIDERS: PCP Physician Assistant; Referring Provider Nurse Practitioner Family; Visit Provider Internal Medicine Pulmonary Disease
DX: R60.0 Localized edema (principal); F17.210 Nicotine dependence, cigarettes, uncomplicated
CPT/HCPCS: 71271; 93971

== ENCOUNTER 2023-10-14 08:55 | Outpatient (POV) | payer MEDICARE, MEDICAID, SELFPAY ==
[2023-10-14 09:05] VITALS: BP 124/60; PULSE 60; RESP 16; O2SAT 96; BMI 40.4
--- NOTE | 2023-10-14 09:08 | EXP.PAIN.SOA ---
[facility] Pain Management SOAP Note Subjective:: Patient is a pleasant 58-year-old female who presents today for follow-up of cervical RFA C5-C6 and C6-C7 on 09/30/2023. Patient states that she has had at least 60% improvement and rates her pain a 2 out of 10. Patient states she is able to move around easier with overall decreased pain. She does feel like she is much more functional. Patient does state that she recently had her upper teeth pulled and was given Millsap from an outside provider. She states that she held off taking any tramadol and that she took it for the first couple of days however it caused severe constipation and she discontinued this and did not take any additional tramadol as a precaution. She states that the constipation was relieved and that she is back to her regular self. She states she has plenty of her methocarbamol 750 mg 3 times a day and tramadol 50 mg 1 to 2 tablets a day and does not need any refills at this time. Her Jose has been reviewed and is appropriate. Review of Systems: General: No recent weight changes, no fever, no sleep disturbances Respiratory: No cough, no shortness of air, no recurring pulmonary infections Cardiovascular/peripheral vascular: No chest pain, no palpitations, no edema, no shortness of breath Gastrointestinal: No new onset incontinence, normal bowel movements reported Genitourinary: No new onset incontinence Musculoskeletal: Neck pain Psychiatric: [Normal mood/affect] Neurological: [Denies weakness in extremities], [denies balance issues] Objective:: Physical Exam: General: Alert and oriented x3, no acute distress, pleasant and cooperative Lungs: Respirations even and unlabored, symmetrical chest expansion Eyes: PERRL Musculoskeletal: Flexion and extension of cervical [spine] somewhat guarded secondary to pain, [antalgic gait noted] Neurological: Speech clear, no gross sensory deficit Assessment:: Degenerative disc disease of cervical and lumbar spine with cervical and lumbar radiculopathy symptoms, lumbar facet arthropathy, lumbar spondylosis, chronic pain syndrome, low back pain, neck pain Plan:: Patient has had significant improvement following her cervical RFA and does not require any additional interventions at this time. Patient will return to clinic in 1 month for reevaluation of symptoms and plan of care. Patient has been instructed to contact the clinic with any concerns before the next appointment. Dr. Davis has reviewed this note and agrees with this plan of care. This note was dictated using voice recognition software and make contain errors or omissions. [facility] Disclaimer: The information contained in this section may have been updated after the patient was seen, as this information can be updated by other users. Medical History Pulmonary emphysema History of COPD Smoking greater than 30 pack years Coronary artery abnormality Elevated liver enzymes Abnormal liver function tests Morbid obesity with BMI of 40.0-44.9, adult Abnormal electrocardiogram [ECG] [EKG] Former smoker Family history of ischemic heart disease before age 50 Father-NE @ 42 Brother-KAVITHA @42 Brother-CABG @45 Mother-AFib Dyspnea Typical angina Coronary artery calcification seen on CT scan Coronary artery disease Back pain, chronic Neck pain, chronic COPD (chronic obstructive pulmonary disease) Bipolar 1 disorder Insomnia Depression Anxiety Hyperlipidemia Hypertension 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 H/O lateral meniscus repair of left knee H/O lateral meniscus repair of right knee History of bladder surgery H/O colonoscopy H/O splenectomy Tubal ligation status History of appendectomy History of cholecystectomy Family History Other No significant family history Social History Smoking Status: Current every day smoker tobacco type: e-cigarettes alcohol intake: never substance use type: denies use current occupational status: other Travel in the last 8 weeks: None
== END 2023-10-14 23:59 | disposition home or self-care (01) ==
LOC: SC.PAIN 08:56
PROVIDERS: PCP Physician Assistant; Visit Provider Nurse Practitioner Family
DX: M50.123 Cervical disc disorder at C6-C7 level with radiculopathy (principal); M51.16 Intervertebral disc disorders with radiculopathy, lumbar region; M47.26 Other spondylosis with radiculopathy, lumbar region; G89.4 Chronic pain syndrome
CPT/HCPCS: 99212; G0463

== ENCOUNTER 2023-11-14 10:50 | Outpatient (POV) | payer MEDICARE, SELFPAY ==
[2023-11-14 11:05] VITALS: BP 111/52; PULSE 60; RESP 18; O2SAT 96; BMI 40.4
--- NOTE | 2023-11-14 12:12 | A.OFFVIS_ITS ---
[facility] Pain Management SOAP Note Subjective:: Patient is a pleasant 58-year-old female who presents today for follow-up. Today she rates her pain a 6 out of 10. Patient states that her neck continues to do well from her RFA that she had back at the beginning of September however today her pain is more related to all along her low back along the right side with some on the left side. Patient denies any radiating symptoms into her legs. She states this is aching, throbbing sensation with some numbness and tingling in and around her hips and buttocks area. Patient states that she did have a fall about a month ago where she landed on her right hip and feels like this may have aggravated some of her symptoms. Patient in the past has had injection therapy that did provide significant relief. She does state that she is interested in options today. Patient is prescribed methocarbamol 750 mg 3 times a day and tramadol 50 mg 1 to 2 tablets a day. She denies any side effects from these medications and states that she thinks she is okay on refills currently. Patient has recently been prescribed [place] for dental work. Jose has been reviewed and is appropriate. Review of Systems: General: No recent weight changes, no fever, no sleep disturbances Respiratory: No cough, no shortness of air, no recurring pulmonary infections Cardiovascular/peripheral vascular: No chest pain, no palpitations, no edema, no shortness of breath Gastrointestinal: No new onset incontinence, normal bowel movements reported Genitourinary: No new onset incontinence Musculoskeletal: Low back pain, bilateral hip pain Psychiatric: [Normal mood/affect] Neurological: [Denies weakness in extremities], [denies balance issues] Objective:: Physical Exam: General: Alert and oriented x3, no acute distress, pleasant and cooperative Lungs: Respirations even and unlabored, symmetrical chest expansion Eyes: PERRL Musculoskeletal: Flexion and extension of lumbar [spine] somewhat guarded secondary to pain, [antalgic gait noted] point tenderness along bilateral SIs with positive bilateral Yue's, Thomas's, Gaenslen's, compression and distraction exam Neurological: Speech clear, no gross sensory deficit Assessment:: Degenerative disc disease of cervical and lumbar spine with cervical and lumbar radiculopathy symptoms, sacroiliitis, greater trochanteric bursitis Plan:: Patient is experiencing worsening pain in her low back and bilateral hips with limited range of motion. Patient did have extreme point tenderness along her right SI and point tenderness along her left SI with positive bilateral Yue's, Thomas's, Gaenslen's, compression and distraction exam. Patient was discussed that she may benefit from bilateral SI injections. Risk and benefits were discussed with patient and she would like to proceed forward with this plan of care. Patient has previously had right SI injections back in May that did provide 80% relief lasting on average 3 months. Patient has continued at home stretching exercise between injections with minimal relief. We will schedule the patient for bilateral SI injections under fluoroscopy. Patient has been instructed to contact the clinic with any concerns before the next appointment. Dr. Davis has reviewed this note and agrees with this plan of care. This note was dictated using voice recognition software and make contain errors or omissions. [facility] Disclaimer: The information contained in this section may have been updated after the patient was seen, as this information can be updated by other users. Medical History Pulmonary emphysema History of COPD Smoking greater than 30 pack years Coronary artery abnormality Elevated liver enzymes Abnormal liver function tests Morbid obesity with BMI of 40.0-44.9, adult Abnormal electrocardiogram [ECG] [EKG] Former smoker Family history of ischemic heart disease before age 50 Father-[place] @ 42 Brother-KAVITHA @42 Brother-CABG @45 Mother-AFib Dyspnea Typical angina Coronary artery calcification seen on CT scan Coronary artery disease Back pain, chronic Neck pain, chronic COPD (chronic obstructive pulmonary disease) Bipolar 1 disorder Insomnia Depression Anxiety Hyperlipidemia Hypertension 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 H/O lateral meniscus repair of left knee H/O lateral meniscus repair of right knee History of bladder surgery H/O colonoscopy H/O splenectomy Tubal ligation status History of appendectomy History of cholecystectomy Family History Other No significant family history Social History Smoking Status: Current every day smoker tobacco type: e-cigarettes alcohol intake: never substance use type: denies use current occupational status: other Travel in the last 8 weeks: None
== END 2023-11-14 23:59 | disposition home or self-care (01) ==
LOC: SC.PAIN 10:50
PROVIDERS: PCP Physician Assistant; Visit Provider Nurse Practitioner Family
DX: M54.16 Radiculopathy, lumbar region (principal); M46.1 Sacroiliitis, not elsewhere classified; M51.36 Other intervertebral disc degeneration, lumbar region; M50.10 Cervical disc disorder with radiculopathy, unspecified cervical region
CPT/HCPCS: 99212; G0463

== ENCOUNTER 2023-12-14 10:48 | Outpatient (POV) | payer MEDICARE, SELFPAY ==
[2023-12-14 10:59] VITALS: BP 122/63; PULSE 57; RESP 16; O2SAT 96; BMI 41.2
--- NOTE | 2023-12-14 11:06 | EXP.PAIN.SOA ---
[facility] Disclaimer: The information contained in this section may have been updated after the patient was seen, as this information can be updated by other users. Medical History Pulmonary emphysema History of COPD Smoking greater than 30 pack years Coronary artery abnormality Elevated liver enzymes Abnormal liver function tests Morbid obesity with BMI of 40.0-44.9, adult Abnormal electrocardiogram [ECG] [EKG] Former smoker Family history of ischemic heart disease before age 50 Father-[place] @ 42 Brother-KAVITHA @42 Brother-CABG @45 Mother-AFib Dyspnea Typical angina Coronary artery calcification seen on CT scan Coronary artery disease Back pain, chronic Neck pain, chronic COPD (chronic obstructive pulmonary disease) Bipolar 1 disorder Insomnia Depression Anxiety Hyperlipidemia Hypertension 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 H/O lateral meniscus repair of left knee H/O lateral meniscus repair of right knee History of bladder surgery H/O colonoscopy H/O splenectomy Tubal ligation status History of appendectomy History of cholecystectomy Family History Other No significant family history Social History Smoking Status: Current every day smoker tobacco type: e-cigarettes alcohol intake: never substance use type: denies use current occupational status: unemployed Travel in the last 8 weeks: None PM Subjective & Objective Subjective Subjective:: Patient is a pleasant 58-year-old female who presents today for insurance denial. Today she rates her pain an 8 out of 10. Patient denies any new trauma or injury. She does state that she is still experiencing the same pain she was at our last visit. She said that the right side is worse and there is an aching, throbbing sensation with some numbness and tingling that goes into her hips and buttocks area. Patient does state that it is severe and that it is interfering with her ability perform activities of daily living such as cooking and cleaning. Patient did previously have SI injections back in May that did provide 80% relief lasting 3 months. Patient's denial letter did state that it needed to here at least half of improvement with improvement lasting 3 months. Patient is currently managed with methocarbamol 750 mg 3 times a day and tramadol 50 mg 1 to 2 tablets a day. She denies any side effects from these medications. Her Jose has been reviewed and is appropriate. Review of Systems: General: No recent weight changes, no fever, no sleep disturbances Respiratory: No cough, no shortness of air, no recurring pulmonary infections Cardiovascular/peripheral vascular: No chest pain, no palpitations, no edema, no shortness of breath Gastrointestinal: No new onset incontinence, normal bowel movements reported Genitourinary: No new onset incontinence Musculoskeletal: Low back pain, buttocks pain, hip pain Psychiatric: [Normal mood/affect] Neurological: [Denies weakness in extremities], [denies balance issues] Pain at rest (0-10 scale): 8 Objective Objective:: Physical Exam: General: Alert and oriented x3, no acute distress, pleasant and cooperative Lungs: Respirations even and unlabored, symmetrical chest expansion Eyes: PERRL Musculoskeletal: Flexion and extension of lumbar [spine] somewhat guarded secondary to pain, [antalgic gait noted] point tenderness along bilateral SIs with positive bilateral Yue's, Thomas's, Gaenslen's, compression and distraction exam Neurological: Speech clear, no gross sensory deficit Has patient had previous pain injection?: No Conservative treatment options previously tried: Home exercise plan Length of treatment: Longer than 8 weeks and Prescription medications Length of treatment: Longer than 8 weeks Meds Home Medications and Allergies Home Medications ?Medication ?Instructions ?Recorded ?Confirmed ?Type albuterol sulfate 90 mcg/actuation 1 inh inhalation DIRECTED 09/02/22 12/14/23 History breath activated powder inhaler Breathing problems (ProAir RespiClick) buspirone 10 mg tablet 10 mg PO TID MOOD 09/02/22 12/14/23 History escitalopram oxalate 20 mg tablet 20 mg PO DIRECTED MOOD 09/02/22 12/14/23 History esomeprazole magnesium 20 mg 20 mg PO DAILY STOMACH 09/02/22 12/14/23 History capsule,delayed release (Nexium) hydroxyzine HCl 25 mg tablet 25 mg PO TID MOOD 09/02/22 12/14/23 History lamotrigine 200 mg tablet 200 mg PO DIRECTED SEIZURES 09/02/22 12/14/23 History trazodone 50 mg tablet 50 mg PO HS SLEEP 11/01/22 12/14/23 History lisinopril 20 1 tab PO BID BLOOD PRESSURE #180 12/06/22 12/14/23 Rx mg-hydrochlorothiazide 25 mg tablet tabs nitroglycerin 0.4 mg sublingual 0.4 mg sublingual Q5M PRN chest 12/21/22 12/14/23 Rx tablet pain #25 tabs aspirin 81 mg chewable tablet 81 mg PO DAILY Blood Thinner 12/23/22 12/14/23 History atorvastatin 80 mg tablet 80 mg PO DAILY Cholesterol #90 tabs 03/14/23 12/14/23 Rx methocarbamol 750 mg tablet 750 mg PO TID . #90 tabs 07/27/23 12/14/23 Rx tramadol 50 mg tablet 50 mg PO BID Pain #60 tabs 07/27/23 12/14/23 Rx fluticasone fur. 200 mcg-umeclid 1 inh inhalation DAILY 90 days #90 08/05/23 12/14/23 Rx 62.5 mcg-vilant 25 mcg ea inhalat.powder (Trelegy Ellipta) montelukast 10 mg tablet 10 mg PO DAILY #90 tabs 08/05/23 12/14/23 Rx (Singulair) bisoprolol fumarate 10 mg tablet See Rx Instructions .Route 08/29/23 12/14/23 Rx .COMPLEX #90 tabs isosorbide mononitrate 30 mg See Rx Instructions .Route 08/29/23 12/14/23 Rx tablet,extended release 24 hr .COMPLEX #90 tabs lurasidone 40 mg tablet (Latuda) 40 mg PO HS 11/10/23 12/14/23 History clopidogrel 75 mg tablet (Plavix) 75 mg PO DAILY Blood Thinner #90 12/05/23 12/14/23 Rx tabs New Prescriptions to Start Prescriptions: Allergies Allergy/AdvReac Type Severity Reaction Status Date / Time No Known Allergies Allergy Verified 11/10/23 11:01 Assessment and Plan *Assessment and plan (1) Bilateral sacroiliitis: Status: Acute Category: Medical Code(s): M46.1 - Sacroiliitis, not elsewhere classified (2) Degenerative disc disease, lumbar: Status: Acute Category: Medical Code(s): M51.36 - Other intervertebral disc degeneration, lumbar region Plan Patient continues to experience significant pain throughout her low back and hips and buttocks area. Patient was counseled that on her last note we did have in the dictation that she did get 80% relief lasting on average 3 months. Patient did have improved function with her last injections and is still a beneficial candidate of the bilateral SI injections. I did review over again the risk and benefits of these injections and she would like to proceed forward with this plan of care. Patient did have extreme point tenderness on the right side with point tenderness on the left and positive bilateral Yue's, Thomas's, Gaenslen's, compression and distraction exam. We will resubmit for the bilateral SI injections as the patient did have 80% relief lasting longer than 3 months. Patient has been instructed to contact the clinic with any concerns before the next appointment. Dr. Davis has reviewed this note and agrees with this plan of care. This note was dictated using voice recognition software and make contain errors or omissions.
== END 2023-12-14 23:59 | disposition home or self-care (01) ==
LOC: SC.PAIN 10:49
PROVIDERS: PCP Physician Assistant; Visit Provider Nurse Practitioner Family
DX: M46.1 Sacroiliitis, not elsewhere classified (principal); M51.36 Other intervertebral disc degeneration, lumbar region
CPT/HCPCS: 99212; G0463

== ENCOUNTER 2024-02-21 09:09 | Day surgery (SDC) | payer MEDICARE, SELFPAY ==
[2024-02-21 09:29] VITALS: BP 112/55; PULSE 60; RESP 16; TEMP 37; O2SAT 97; BMI 41.3
[2024-02-21] MEDS: methylPREDNISolone ACETATE 80MG/ML VIAL 80 MG (09:45)
[2024-02-21 09:46] VITALS: BP 147/66; PULSE 61; RESP 18; O2SAT 95
[2024-02-21] MEDS: BUPIVACAINE 0.25% 10ML INJ 25 MG IJ (09:46)
[2024-02-21] MEDS: LIDOCAINE 1% 5ML PF VIAL 5 ML (09:46)
[2024-02-21 09:47] VITALS: BP 147/66; PULSE 59; RESP 18; O2SAT 95
[2024-02-21 09:54] VITALS: BP 131/69; PULSE 52; RESP 18; O2SAT 98
--- NOTE | 2024-02-21 09:56 | P.PCN_ITS ---
Procedure Date: 02/21/24 Time: 09:45 Anesthesiologist:: Davi Cowan CRNA Complications:: None Pre-procedure Diagnosis:: Bilateral sacroiliitis Post-procedure Diagnosis:: Same Indications for Procedure:: Patient is a very pleasant 59-year-old female comes our clinic today for repeat bilateral sacroiliac joint injection of cortisone and local anesthetic. She responded very well to previous injections of the sacroiliac joints. She describes low lumbar back pain off the midline bilaterally. Bilateral posterior hip pain. Difficulty transitioning from sitting to standing. Difficulty with ambulation due to pain. She rates her pain today 8/10. Procedure Details:: Procedure: Bilateral sacroiliac joint injections under fluoroscopy Informed consent was obtained and the risks and benefits of the procedure were explained to the patient.~ The patient was taken to the procedure room and noninvasive monitors were placed including a noninvasive blood pressure cuff and pulse oximeter.~ The patient was placed prone on the procedure table. Both hips were cleansed using Betadine as a cleansing solution. C-arm fluoroscopy was used to view the right sacroiliac joint.~ The skin and subcutaneous tissues were anesthetized using lidocaine 1.5% and a 25-gauge needle.~ After this, a 22-gauge spinal needle was inserted under fluoroscopic guidance into the inferior aspect of the right sacroiliac joint.~ Omnipaque dye was injected and good spread was seen throughout the joint.~ After this, approximately 5 mL of bupivacaine, 0.25% and Depo-Medrol, 40 mg was incrementally injected into the right sacroiliac joint. We then moved to the left sacroiliac joint.~ The skin and subcutaneous tissues were anesthetized using lidocaine 1.5% and a 25-gauge needle.~ After this, a 22- gauge spinal needle was inserted under fluoroscopic guidance into the inferior aspect of the left sacroiliac joint.~ Omnipaque dye was injected and good spread was seen throughout the joint. After this, approximately 5 mL of bupivacaine, 0.25% and Depo-Medrol, 40 mg was incrementally injected into the left sacroiliac joint.~ The patient tolerated the procedure well with no complications. The patient was observed in the Pain Clinic and then was discharged home bianca rologically intact. Plan and Disposition:: Patient was discharged without incident.
== END 2024-02-21 09:54 | disposition home or self-care (01) ==
PROVIDERS: PCP Physician Assistant; Visit Provider Nurse Anesthetist, Certified Registered
DX: M46.1 Sacroiliitis, not elsewhere classified (principal)
CPT/HCPCS: 27096; G0260; J1010

== ENCOUNTER 2024-03-14 14:35 | Outpatient (POV) | payer MEDICARE, SELFPAY ==
--- NOTE | 2024-03-14 14:40 | A.OFFVIS_ITS ---
[facility] Disclaimer: The information contained in this section may have been updated after the patient was seen, as this information can be updated by other users. Medical History Pulmonary emphysema History of COPD Smoking greater than 30 pack years Coronary artery abnormality Elevated liver enzymes Abnormal liver function tests Morbid obesity with BMI of 40.0-44.9, adult Abnormal electrocardiogram [ECG] [EKG] Former smoker Family history of ischemic heart disease before age 50 Father-[place] @ 42 Brother-KAVITHA @42 Brother-CABG @45 Mother-AFib Dyspnea Typical angina Coronary artery calcification seen on CT scan Coronary artery disease Back pain, chronic Neck pain, chronic COPD (chronic obstructive pulmonary disease) Bipolar 1 disorder Insomnia Depression Anxiety Hyperlipidemia Hypertension 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 H/O lateral meniscus repair of left knee H/O lateral meniscus repair of right knee History of bladder surgery H/O colonoscopy H/O splenectomy Tubal ligation status History of appendectomy History of cholecystectomy Family History Other No significant family history Social History Smoking Status: Current every day smoker tobacco type: e-cigarettes alcohol intake: never substance use type: denies use current occupational status: unemployed Travel in the last 8 weeks: None PM Subjective & Objective Subjective Subjective:: Patient is a pleasant 59-year-old female who presents today for follow-up of bilateral SI injections on 02/21/2024. Today she rates her pain a 2 out of 10. She denies any new trauma or injury. Patient does state that she had approximately 95-98 percent of improvement following this injection. She states that it is still continuing to work well however she is rating her pain a 7 or 8 out of 10 in her neck. Patient does state the pain is all in her neck and causes limited range of motion. She states the pain is worse with certain movements such as bending or twisting. Patient did previously have a cervical RFA in September that did provide more than 50% and has done well up until the last couple of weeks. Patient is interested in repeating these prior injections. Patient does state the pain is interfering with her ability to perform activities of daily living such as cooking and cleaning. Patient is currently managed with methocarbamol 750 mg 3 times a day and tramadol 50 mg 1 to 2 tablets a day. She denies any side effects from this medication. Her Jose has been reviewed and is appropriate. Review of Systems: General: No recent weight changes, no fever, no sleep disturbances Respiratory: No cough, no shortness of air, no recurring pulmonary infections Cardiovascular/peripheral vascular: No chest pain, no palpitations, no edema, no shortness of breath Gastrointestinal: No new onset incontinence, normal bowel movements reported Genitourinary: No new onset incontinence Musculoskeletal: Neck pain Psychiatric: [Normal mood/affect] Neurological: [Denies weakness in extremities], [denies balance issues] Pain at rest (0-10 scale): 7 Objective Objective:: Physical Exam: General: Alert and oriented x3, no acute distress, pleasant and cooperative Lungs: Respirations even and unlabored, symmetrical chest expansion Eyes: PERRL Musculoskeletal: Flexion and extension of cervical [spine] somewhat guarded secondary to pain, [antalgic gait noted] positive Kemps test Neurological: Speech clear, no gross sensory deficit Has patient had previous pain injection?: Yes Percent improvement in pain since last injection: 95 to 98% Conservative treatment options previously tried: Home exercise plan Length of treatment: Longer than 12 weeks Meds Home Medications and Allergies Home Medications ?Medication ?Instructions ?Recorded ?Confirmed ?Type albuterol sulfate 90 mcg/actuation 1 inh inhalation DIRECTED 09/02/22 02/21/24 History breath activated powder inhaler Breathing problems (ProAir RespiClick) buspirone 10 mg tablet 10 mg PO TID MOOD 09/02/22 02/21/24 History escitalopram oxalate 20 mg tablet 20 mg PO DIRECTED MOOD 09/02/22 02/21/24 History esomeprazole magnesium 20 mg 20 mg PO DAILY STOMACH 09/02/22 02/21/24 History capsule,delayed release (Nexium) hydroxyzine HCl 25 mg tablet 25 mg PO TID MOOD 09/02/22 02/21/24 History lamotrigine 200 mg tablet 200 mg PO DIRECTED SEIZURES 09/02/22 02/21/24 History trazodone 50 mg tablet 50 mg PO HS SLEEP 11/01/22 02/21/24 History lisinopril 20 1 tab PO BID BLOOD PRESSURE #180 12/06/22 02/21/24 Rx mg-hydrochlorothiazide 25 mg tablet tabs nitroglycerin 0.4 mg sublingual 0.4 mg sublingual Q5M PRN chest 12/21/22 02/21/24 Rx tablet pain #25 tabs aspirin 81 mg chewable tablet 81 mg PO DAILY Blood Thinner 12/23/22 02/21/24 History atorvastatin 80 mg tablet 80 mg PO DAILY Cholesterol #90 tabs 03/14/23 02/21/24 Rx methocarbamol 750 mg tablet 750 mg PO TID . #90 tabs 07/27/23 02/21/24 Rx tramadol 50 mg tablet 50 mg PO BID Pain #60 tabs 07/27/23 02/21/24 Rx montelukast 10 mg tablet 10 mg PO DAILY #90 tabs 08/05/23 02/21/24 Rx (Singulair) bisoprolol fumarate 10 mg tablet See Rx Instructions .Route 08/29/23 02/21/24 Rx .COMPLEX #90 tabs isosorbide mononitrate 30 mg See Rx Instructions .Route 08/29/23 02/21/24 Rx tablet,extended release 24 hr .COMPLEX #90 tabs lurasidone 40 mg tablet (Latuda) 40 mg PO HS 11/10/23 02/21/24 History clopidogrel 75 mg tablet (Plavix) 75 mg PO DAILY Blood Thinner #90 12/05/23 02/21/24 Rx tabs fluticasone fur. 200 mcg-umeclid 1 inh inhalation DAILY 90 days #90 12/29/23 02/21/24 Rx 62.5 mcg-vilant 25 mcg ea inhalat.powder (Trelegy Ellipta) New Prescriptions to Start Prescriptions: Allergies Allergy/AdvReac Type Severity Reaction Status Date / Time No Known Allergies Allergy Verified 02/21/24 09:36 Assessment and Plan *Assessment and plan (1) Degenerative disc disease, lumbar: Status: Acute Category: Medical Code(s): M51.36 - Other intervertebral disc degeneration, lumbar region (2) Bilateral sacroiliitis: Status: Acute Category: Medical Code(s): M46.1 - Sacroiliitis, not elsewhere classified (3) Facet arthropathy, cervical: Status: Acute Category: Medical Code(s): M47.812 - Spondylosis without myelopathy or radiculopathy, cervical region Plan Patient has had significant improvement following her SI injections and does not require any additional interventions for her low back however she is experiencing worsening pain in her neck with limited range of motion and a positive Kemps test. Patient did previously have a cervical radiofrequency ablation back in September that did provide more than 50% and has lasted up until the last couple of weeks. I did review over repeat cervical RFA risk and benefits and she would like to proceed forward with this plan of care. Patient is currently on blood thinners and we will have to stop this medication prior to these procedures. Patient has tried and failed conservative therapy including continued at home stretching exercise for longer than 12 weeks. Patient will be scheduled for bilateral cervical RFA C5-C6 and C6-C7 under fluoroscopy. Patient has been instructed to contact the clinic with any concerns before the next appointment. Dr. Davis has reviewed this note and agrees with this plan of care. This note was dictated using voice recognition software and make contain errors or omissions. All injections are used with Lidocaine or Bupivacaine and Depo Medrol.
[2024-03-14 15:29] VITALS: BP 108/60; PULSE 66; RESP 16; O2SAT 97; BMI 41.0
== END 2024-03-14 23:59 | disposition home or self-care (01) ==
LOC: SC.PAIN 14:36
PROVIDERS: PCP Physician Assistant; Visit Provider Nurse Practitioner Family
DX: M46.1 Sacroiliitis, not elsewhere classified; M47.812 Spondylosis without myelopathy or radiculopathy, cervical region; M51.369 Other intervertebral disc degeneration, lumbar region without mention of lumbar back pain or lower extremity pain; U07.0 Vaping-related disorder; Z73.89 Other problems related to life management difficulty; Z79.899 Other long term (current) drug therapy
CPT/HCPCS: 99212; G0463

== ENCOUNTER 2024-03-29 08:50 | Outpatient (CLI) | payer MEDICARE, MEDICAID, SELFPAY ==
[2024-03-29 09:36] LABS: Basophils # 0.1 K/mm3 (0-0.2); Basophils % 0.8 % (0.1-2.0); Eosinophils # 0.1 K/mm3 (0.0-0.4); Eosinophils % 0.8 % (0.1-12.0); Hematocrit 41.8 % (37.0-47.0); Hemoglobin 13.9 g/dL (12.2-16.2); Lymphocytes # 3.4 K/mm3 (0.7-4.5); Lymphocytes % 34.6 % (10-50); Mean Corpuscular HGB Conc 33.3 g/dL (31.8-35.4); Mean Corpuscular Hemoglobin 30.6 pg (27.0-31.2); Mean Corpuscular Volume 91.9 fl (81-99); Mean Platelet Volume 7.5 fl (7.4-10.4); Monocytes # 0.8 K/mm3 (0.1-1.0); Monocytes % 7.7 % (1.7-9.3); Neutrophils # 5.5 K/mm3 (1.8-7.8); Neutrophils % 56.1 % (37.0-80.0); Platelet Count 342 K/mm3 (142-424); Red Blood Count 4.55 M/mm3 (4.20-5.40); Red Cell Distribution Width 14.6 % (11.5-17.5); White Blood Count 9.9 K/mm3 (4.8-10.8)
[2024-03-29 09:58] LABS: Alanine Aminotransferase 25 U/L (12-78); Albumin Level 3.7 g/dl (3.5-5.0); Alkaline Phosphatase 135 U/L (38-126); Anion Gap 8.5 mEq/L (5-15); Aspartate Amino Transferase 26 U/L (14-36); Bilirubin,Direct 0.2 mg/dl (0.0-0.4); Bilirubin,Indirect 0.3 mg/dL (0.0-0.9); Bilirubin,Total 0.5 mg/dl (0.2-1.3); Bilirubin,Unconjugated 0.3 mg/dL (0.0-1.1); Blood Urea Nitrogen 17 mg/dl (7-17); Calcium 9.1 mg/dl (8.4-10.2); Carbon Dioxide 31 mmol/L (22.0-30.0); Chloride 105 mmol/L (98-107); Chol/HDL Ratio 3.7 (1-3.5); Cholesterol 144 mg/dl (140-200); Estimated Glomerular Filt Rate 127 ml/min (>60); GFR (African American) 154 ML/MIN (>60); Glucose 119 mg/dl (74-100); HDL Cholesterol 39 mg/dl (40-60); Potassium 3.5 mmoL/L (3.5-5.1); Sodium 141 mmol/L (136-145); Total Protein,Serum 6.2 g/dl (6.3-8.2); Triglycerides 158 mg/dl (30-150); VLDL Cholesterol 32 mg/dL (0-40)
[2024-03-29 10:10] LABS: Direct LDL Cholesterol 82.11 mg/dL (100-129)
[2024-03-29 10:21] LABS: Free T4 (Free Thyroxine) 1.03 ng/dl (0.78-2.19)
[2024-03-29 10:33] LABS: Thyroid Stimulating Hormone 1.66 uIU/mL (0.465-4.68)
== END 2024-03-29 23:59 | disposition home or self-care (01) ==
LOC: LAB 08:52
PROVIDERS: PCP Physician Assistant; Visit Provider Physician Assistant
DX: I10 Essential (primary) hypertension (principal); R06.09 Other forms of dyspnea; I25.10 Atherosclerotic heart disease of native coronary artery without angina pectoris; E78.5 Hyperlipidemia, unspecified; J44.9 Chronic obstructive pulmonary disease, unspecified; R94.31 Abnormal electrocardiogram [ECG] [EKG]
CPT/HCPCS: 36415; 80048; 80061; 80076; 84439; 84443; 85025

== ENCOUNTER 2024-04-05 08:24 | Emergency (ER) | payer MEDICARE, MEDICAID, SELFPAY ==
[2024-04-05 08:39] VITALS: BP 176/50; PULSE 65; RESP 18; TEMP 36.6; O2SAT 96; BMI 41.0
--- NOTE | 2024-04-05 08:42 | ED_ITS ---
Discharge Plan Disposition Patient Disposition: Home, Self-Care Condition: Good Prescriptions Prescriptions: New methylprednisolone [Medrol (Tyler)] 4 mg tablets,dose pack See Rx Instructions .Route .COMPLEX 6 Days Qty: 21 0RF Rx Instructions: taper pack; No Action lurasidone [Latuda] 40 mg tablet 40 mg PO HS Rx Instructions: must administer with food (at least 350 calories) ProAir RespiClick 90 mcg/actuation aerosol powdr breath activated 1 inh inhalation DIRECTED lamotrigine 200 mg tablet 200 mg PO DIRECTED buspirone 10 mg tablet 10 mg PO TID trazodone 50 mg tablet 50 mg PO HS PRN (Reason: SLEEP) montelukast [Singulair] 10 mg tablet 10 mg PO DAILY Qty: 90 2RF nitroglycerin 0.4 mg tablet, sublingual 0.4 mg sublingual Q5M PRN (Reason: chest pain) Qty: 25 0RF Rx Instructions: do not exceed 3 doses per episode lisinopril-hydrochlorothiazide 20-25 mg tablet 1 tab PO BID Qty: 180 3RF bisoprolol fumarate 10 mg tablet See Rx Instructions .ROUTE .COMPLEX Qty: 90 3RF Dose Instruction: TAKE ONE TABLET BY MOUTH ONCE A DAY Rx Instructions: TAKE ONE TABLET BY MOUTH ONCE A DAY isosorbide mononitrate 30 mg tablet extended release 24 hr See Rx Instructions .ROUTE .COMPLEX Qty: 90 3RF Dose Instruction: TAKE ONE TABLET BY MOUTH ONCE A DAY Rx Instructions: TAKE ONE TABLET BY MOUTH ONCE A DAY atorvastatin 80 mg tablet 80 mg PO DAILY Qty: 90 1RF aspirin 81 mg tablet,chewable 81 mg PO DAILY Referrals Follow up/Referrals: Gabriela Mari PA [Primary Care Provider] - See instructions Activity Restrictions/Add. Instructions Additional Instructions/Restrictions: Start oral steriods tomorrow If pain persists Follow up with your Family Doctor or Pain Management Return if needed Straight to ER if any life threatening symptoms Clinical Impressions Clinical Impression: Sciatica of right side Instructions Patient Instructions: DI for Sciatica, DI for Back Pain With Sciatica Print Language Print Language: Egyptian Discharge ED Provider: Yamilex [place]aur [facility] [place] General Stated complaint: Pain in R lower back going down leg Mode of Arrival: Ambulatory Source of Information: Patient Time Seen by Provider: 04/05/24 08:45 Description of Symptoms (Recalled from Triage Doc. by RN): NERVE PAIN ON RIGHT SIDE GOING DOWN LEG HEENT Symptoms (Recalled from RN notes): No Resp Symptoms (Recalled from RN notes): No Skin Symptoms (Recalled from RN notes): No MS Symptoms (Recalled from RN notes): Yes Functional Status (Recalled from RN notes): WNL History of Present Illness Provider Complaint: Patient states that she has a hx of Sciatica and she has been having pain in her right lower back into buttock area and going into her upper leg like she has had before with sciatica Denies known injury Denies loss of control of bowel or bladder Related Data Home Medications ?Medication ?Instructions ?Recorded ?Confirmed albuterol sulfate 90 mcg/actuation 1 inh inhalation DIRECTED 09/02/22 03/29/24 breath activated powder inhaler Breathing problems (ProAir RespiClick) buspirone 10 mg tablet 10 mg PO TID MOOD 09/02/22 03/29/24 lamotrigine 200 mg tablet 200 mg PO DIRECTED SEIZURES 09/02/22 04/05/24 aspirin 81 mg chewable tablet 81 mg PO DAILY Blood Thinner 12/23/22 03/29/24 lurasidone 40 mg tablet (Latuda) 40 mg PO HS 11/10/23 04/05/24 trazodone 50 mg tablet 50 mg PO HS PRN SLEEP 03/29/24 04/05/24 Previous Rx's ?Medication ?Instructions ?Recorded lisinopril 20 1 tab PO BID BLOOD PRESSURE #180 12/06/22 mg-hydrochlorothiazide 25 mg tablet tabs montelukast 10 mg tablet 10 mg PO DAILY #90 tabs 08/05/23 (Singulair) bisoprolol fumarate 10 mg tablet See Rx Instructions .Route 08/29/23 .COMPLEX #90 tabs isosorbide mononitrate 30 mg See Rx Instructions .Route 08/29/23 tablet,extended release 24 hr .COMPLEX #90 tabs atorvastatin 80 mg tablet 80 mg PO DAILY Cholesterol #90 tabs 03/20/24 nitroglycerin 0.4 mg sublingual 0.4 mg sublingual Q5M PRN chest 03/29/24 tablet pain #25 tabs methylprednisolone 4 mg tablets in See Rx Instructions .Route 04/05/24 a dose pack (Medrol (Tyler)) .COMPLEX 6 days #21 tabs Allergies Allergy/AdvReac Type Severity Reaction Status Date / Time No Known Allergies Allergy Verified 03/29/24 08:28 Worker's Comp Is this a Worker's Comp case?: No [facility] Disclaimer: The information contained in this section may have been updated after the patient was seen, as this information can be updated by other users. Medical History Pulmonary emphysema History of COPD Smoking greater than 30 pack years Coronary artery abnormality Elevated liver enzymes Abnormal liver function tests Morbid obesity with BMI of 40.0-44.9, adult Abnormal electrocardiogram [ECG] [EKG] Former smoker Family history of ischemic heart disease before age 50 Father-MA @ 42 Brother-KAVITHA @42 Brother-CABG @45 Mother-AFib Dyspnea Typical angina Coronary artery calcification seen on CT scan Coronary artery disease Back pain, chronic Neck pain, chronic COPD (chronic obstructive pulmonary disease) Bipolar 1 disorder Insomnia Depression Anxiety Hyperlipidemia Hypertension 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 H/O lateral meniscus repair of left knee H/O lateral meniscus repair of right knee History of bladder surgery H/O colonoscopy H/O splenectomy Tubal ligation status History of appendectomy History of cholecystectomy Family History Other No significant family history Social History Smoking Status: Current every day smoker tobacco type: e-cigarettes alcohol intake: never substance use type: denies use current occupational status: other Travel in the last 8 weeks: None ROS Obtained: Yes All systems reviewed & no additional complaints except as documented and Yes Systems reviewed as appropriate & no additional complaints except as documented Constitutional Constitutional: Reports system reviewed and no additional complaints, except as documented, Reports as per HPI and Denies fever(s) Eyes Eyes: Reports system reviewed and no additional complaints, except as documented and Reports as per HPI ENT Ears, Nose, Mouth, and Throat: Reports system reviewed and no additional complaints, except as documented and Reports as per HPI Cardiovascular Cardiovascular: Reports system reviewed and no additional complaints, except as documented and Reports as per HPI Respiratory Respiratory: Reports system reviewed and no additional complaints, except as documented and Reports as per HPI Gastrointestinal Gastrointestingal: Reports system reviewed and no additional complaints, except as documented and as per HPI; Denies abdominal pain Genitourinary Female Genitourinary: Reports system reviewed and no additional complaints, except as documented, Reports as per HPI, Denies dysuria, Denies urinary frequency and Denies urinary urgency Musculoskeletal Musculoskeletal: Reports system reviewed and no additional complaints, except as documented, Reports as per HPI and Reports back pain (right side low back pain going into right upper leg) Physical Exam General General appearance: alert and in no apparent distress ENT ENT exam: Present mucous membranes moist Respiratory Respiratory exam: Present normal lung sounds bilaterally; Absent respiratory distress or wheezes Cardiovascular Cardiovascular exam: Present regular rate, normal rhythm and normal heart sounds Back Exam Back exam: Present sciatic notch tenderness (R) Back 1 view image: 2 1. reports tenderness with palpation in right sciatic notch that radidates into upper leg like she has had before with sciatica Denies loss of control of bowel or bladder Neurological Exam Neurological exam: Present alert, oriented X3 and normal gait Medical Decision Making Medical Records Screening: Per USPSTF and CDC recommendations, given the prevalence of disease in our region, it is our hospital?s policy to screen for HIV and viral Hepatitis for all patients aged 18 and over and those with ongoing risk factors. Jose Inquiry Pt receiving controlled substance: No Jose was queried for this patient: No Vital Signs: 04/05/24 08:39 Temperature 97.9 F Temperature Source Oral Pulse Rate [Left Radial] 65 Respiratory Rate 18 Blood Pressure [Left Arm] 176/50 H Blood Pressure Mean [Left Arm] 92 02 Sat by Pulse Oximetry 96 Medical Decision Narrative: Discussed xray and patient declined states that she has had this before with sciatica just wants injections to help has Tramadol and muscle relaxers at home, Medications discussed with pharmacy
[2024-04-05] MEDS: KETOROLAC 30MG/ML VIAL 15 MG IM (08:55)
[2024-04-05] MEDS: METHYLPREDNISOLONE SOD SUCC 125MG VIAL 125 MG IM (08:56)
[2024-04-05 09:10] VITALS: BP 176/50; PULSE 65; RESP 18; TEMP 36.6
== END 2024-04-05 09:12 | disposition home or self-care (01) ==
PROVIDERS: Emergency Provider Nurse Practitioner; PCP Physician Assistant
DX: M54.31 Sciatica, right side (principal)
CPT/HCPCS: 96372; 99213; G0381; J1885; J2919

== ENCOUNTER 2024-05-10 11:43 | Outpatient (CLI) | payer MEDICARE, MEDICAID, SELFPAY | END 2024-05-10 23:59 | disposition home or self-care (01) | PROVIDERS: PCP Physician Assistant; Visit Provider Family Medicine | DX: Z02.9 Encounter for administrative examinations, unspecified (principal) ==

== ENCOUNTER 2024-05-15 10:17 | Outpatient (CLI) | payer MEDICARE, MEDICAID, SELFPAY ==
[2024-05-15 12:21] LABS: Thyroid Stimulating Hormone 1.32 uIU/mL (0.465-4.68)
[2024-05-15 12:32] LABS: Iron 60 ug/dL (37-170)
[2024-05-15 12:40] LABS: Vitamin B12 361 pg/mL (239-931)
[2024-05-15 12:45] LABS: Total Iron Binding Capacity 289 ug/dL (265-497)
[2024-05-15 13:08] LABS: Ferritin 26.6 ng/ml (11.1-264)
== END 2024-05-15 23:59 | disposition home or self-care (01) ==
LOC: LAB 10:19
PROVIDERS: PCP Physician Assistant; Visit Provider Family Medicine
DX: D50.9 Iron deficiency anemia, unspecified (principal); R53.82 Chronic fatigue, unspecified; Z68.41 Body mass index [BMI] 40.0-44.9, adult; E66.9 Obesity, unspecified
CPT/HCPCS: 36415; 82607; 82728; 83540; 83550; 84443

== ENCOUNTER 2024-06-22 08:17 | Outpatient (CLI) | payer MEDICARE, MEDICAID, SELFPAY ==
--- NOTE | 2024-06-22 08:22 | MM_ITS ---
PROCEDURE INFORMATION: Exam: MG Bilateral Screening 3D Mammography Exam date and time: 06/22/2024 8:26 AM Age: 59 years old Clinical indication: Screening examination. A paternal cousin had breast cancer. TECHNIQUE: Imaging protocol: Bilateral Screening tomosynthesis and 2D mammography including computer-aided detection (CAD) when performed. COMPARISON: 1. MG MM DIG SCREENING MAMM BI W/CAD 12/02/2022 10:25 AM 2. MG SHUKRI SCRN MAMMO W/CAD BILAT 12/30/2021 9:34 AM 3. MG SHUKRI SCRN MAMMO W/CAD BILAT 12/09/2020 11:30 AM 4. MG SHUKRI SCRN MAMMO W/CAD BILAT 11/30/2019 1:24 PM FINDINGS: MAMMOGRAPHY: Breast composition: The breasts are heterogeneously dense, which may obscure small masses. Mass: None. Architectural distortion: None. Calcifications: No suspicious calcifications. Asymmetric density: None. Skin thickening: None. Axillary adenopathy: None. IMPRESSION: No mammographic evidence of malignancy. Annual screening is recommended unless otherwise clinically indicated. ASSESSMENT: BI-RADS Category 1: Negative.
== END 2024-06-22 23:59 | disposition home or self-care (01) ==
LOC: RAD 08:19
PROVIDERS: PCP Physician Assistant; Visit Provider Physician Assistant
DX: Z12.31 Encounter for screening mammogram for malignant neoplasm of breast (principal)
CPT/HCPCS: 77063; 77067

== ENCOUNTER 2024-07-18 13:01 | Outpatient (POV) | payer MEDICARE, MEDICAID, SELFPAY ==
--- NOTE | 2024-07-18 13:05 | EXP.PAIN.SOA ---
[facility] Disclaimer: The information contained in this section may have been updated after the patient was seen, as this information can be updated by other users. Medical History Pulmonary emphysema History of COPD Smoking greater than 30 pack years Coronary artery abnormality Elevated liver enzymes Abnormal liver function tests Morbid obesity with BMI of 40.0-44.9, adult Abnormal electrocardiogram [ECG] [EKG] Former smoker Family history of ischemic heart disease before age 50 Father-AK @ 42 Brother-KAVITHA @42 Brother-CABG @45 Mother-AFib Dyspnea Typical angina Coronary artery calcification seen on CT scan Coronary artery disease Back pain, chronic Neck pain, chronic COPD (chronic obstructive pulmonary disease) Bipolar 1 disorder Insomnia Depression Anxiety Hyperlipidemia Hypertension 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 H/O lateral meniscus repair of left knee H/O lateral meniscus repair of right knee History of bladder surgery H/O colonoscopy H/O splenectomy Tubal ligation status History of appendectomy History of cholecystectomy Family History Other No significant family history Social History Smoking Status: Current every day smoker tobacco type: e-cigarettes alcohol intake: never substance use type: denies use current occupational status: disabled and other Travel in the last 8 weeks: None PM Subjective & Objective Subjective Subjective:: Patient is a pleasant 59-year-old female who presents today for follow-up. Today she rates her pain a 8 out of 10. She denies any new trauma or injury. Patient had her last injections back in February and bilateral SI injections that did provide 95-98 percent of improvement. She states that she is still having back and neck pain however states the neck has gotten significantly worse from her last appointment. At that time we were trying to get her scheduled for her RFA and she does state that she would like to try and get this back scheduled. Patient had some issues with her mother being hospitalized and then the winter weather prohibited her from getting into our office. She is continuing to have pain in her neck that causes limited range of motion. She states the pain is worse with certain movements such as bending or twisting. Patient did previously have a cervical RFA in September that did provide more than 50%. Patient states that it really got more severe going into April of last year. She states she has had to rely more on her oral medications due to the worsening pain. The pain is interfering with her ability to perform activities of daily living such as cooking and cleaning. Patient was managed with methocarbamol 750 mg 3 times a day and tramadol 50 mg 1 to 2 tablets a day. She denies any side effects from this medication. Her Jose has been reviewed and is appropriate. Review of Systems: General: No recent weight changes, no fever, no sleep disturbances Respiratory: No cough, no shortness of air, no recurring pulmonary infections Cardiovascular/peripheral vascular: No chest pain, no palpitations, no edema, no shortness of breath Gastrointestinal: No new onset incontinence, normal bowel movements reported Genitourinary: No new onset incontinence Musculoskeletal: Neck pain Psychiatric: [Normal mood/affect] Neurological: [Denies weakness in extremities], [denies balance issues] Pain at rest (0-10 scale): 8 Objective Objective:: Physical Exam: General: Alert and oriented x3, no acute distress, pleasant and cooperative Lungs: Respirations even and unlabored, symmetrical chest expansion Eyes: PERRL Musculoskeletal: Flexion and extension of cervical [spine] somewhat guarded secondary to pain, [antalgic gait noted] positive Kemps test Neurological: Speech clear, no gross sensory deficit Has patient had previous pain injection?: No Conservative treatment options previously tried: Home exercise plan Length of treatment: Longer than 12 weeks Meds Home Medications and Allergies Home Medications ?Medication ?Instructions ?Recorded ?Confirmed ?Type albuterol sulfate 90 mcg/actuation 1 inh inhalation DIRECTED 09/02/22 07/18/24 History breath activated powder inhaler Breathing problems (ProAir RespiClick) buspirone 10 mg tablet 10 mg PO TID MOOD 09/02/22 07/18/24 History lamotrigine 200 mg tablet 200 mg PO DIRECTED SEIZURES 09/02/22 07/18/24 History lisinopril 20 1 tab PO BID BLOOD PRESSURE #180 12/06/22 07/18/24 Rx mg-hydrochlorothiazide 25 mg tablet tabs aspirin 81 mg chewable tablet 81 mg PO DAILY Blood Thinner 12/23/22 07/18/24 History lurasidone 40 mg tablet (Latuda) 40 mg PO HS 11/10/23 07/18/24 History atorvastatin 80 mg tablet 80 mg PO DAILY Cholesterol #90 tabs 03/20/24 07/18/24 Rx nitroglycerin 0.4 mg sublingual 0.4 mg sublingual Q5M PRN chest 03/29/24 07/18/24 Rx tablet pain #25 tabs trazodone 50 mg tablet 50 mg PO HS PRN SLEEP 03/29/24 07/18/24 History clopidogrel 75 mg tablet (Plavix) 75 mg PO DAILY Blood Thinner #90 04/25/24 07/18/24 Rx tabs montelukast 10 mg tablet 10 mg PO DAILY #90 tabs 05/25/24 07/18/24 Rx (Singulair) bisoprolol fumarate 10 mg tablet See Rx Instructions .Route 06/01/24 07/18/24 Rx .COMPLEX #90 tabs isosorbide mononitrate 30 mg See Rx Instructions .Route 06/01/24 07/18/24 Rx tablet,extended release 24 hr .COMPLEX #90 tabs mupirocin 2 % topical ointment 1 applic topical BID infection 14 06/25/24 07/18/24 Rx days #15 grams methocarbamol 750 mg tablet 750 mg PO TID #90 tabs 07/18/24 Rx tramadol 50 mg tablet 50 mg PO BID PRN pain #60 tabs 07/18/24 Rx New Prescriptions to Start Prescriptions: methocarbamol Kingston,Shayla A tramadol Kingston,Shayla A Allergies Allergy/AdvReac Type Severity Reaction Status Date / Time No Known Allergies Allergy Verified 07/17/24 13:04 Assessment and Plan *Assessment and plan (1) Facet arthropathy, cervical: Status: Acute Category: Medical Code(s): M47.812 - Spondylosis without myelopathy or radiculopathy, cervical region (2) Neck pain: Status: Acute Category: Medical Code(s): M54.2 - Cervicalgia (3) Degenerative disc disease, cervical: Status: Acute Category: Medical Code(s): M50.30 - Other cervical disc degeneration, unspecified cervical region Plan Patient is experiencing severe pain in her neck with very limited range of motion and positive Kemps test. I did review over again the risk and benefits of repeat cervical RFA and due to the worsening pain in the cervical region I did certified addiction counselor her that we would submit for 1 side at a time. Patient does feel like her right side is the worst and would like to try that initially. Patient is currently on blood thinners written by Dr. Rangel's office and we would have to contact their office to confirm she can stop this medication prior to proceeding forward. Patient has had her last RFA in September that did provide 50% improvement and today she does state that the pain did not get severe until April of last year. She states since then it is excruciating and unbearable. She has continued conservative treatment including at home stretching exercise for longer than 12 weeks. I have counseled her that we will submit for the cervical RFA right-sided C5-C6 and C6-C7 under fluoroscopy. I will refill her tramadol and methocarbamol and provide a 3-month supply of this medication. Risks and benefits of the medication have been explained in detail to the patient. The patient does understand the risk of dependence on the medication when given over a prolonged period. Patient has been advised of risks of oversedation with the prescribed medication. Narcan has been offered to the paitent in the event of oversedation. Patient has been advised that a family member should also be educated regarding administration of Narcan. The patient has been advised to consult with his/her primary care provider and pharmacist regarding drug-drug interaction of medications currently prescribed. Patient has been prescribed a controlled substance after being counseled on the medication, medication safety, and possible side effects. Opioid contract was reviewed and signed by the patient, and that they have agreed to all of the terms set forth by our compliance program. A UDS is needed to verify patient's compliance with our office pain contract. This is ordered based off specific treatments related to chronic pain with the potential to abuse certain medications. Patient has been instructed to contact the clinic with any concerns before the next appointment. Dr. Davis has reviewed this note and agrees with this plan of care. This note was dictated using voice recognition software and make contain errors or omissions.
[2024-07-18 13:22] VITALS: BP 117/72; PULSE 57; RESP 18; O2SAT 99; BMI 41.0
== END 2024-07-18 23:59 | disposition home or self-care (01) ==
PROVIDERS: PCP Physician Assistant; Visit Provider Nurse Practitioner Family
DX: M47.812 Spondylosis without myelopathy or radiculopathy, cervical region (principal); M50.30 Other cervical disc degeneration, unspecified cervical region; U07.0 Vaping-related disorder; Z73.89 Other problems related to life management difficulty; Z79.02 Long term (current) use of antithrombotics/antiplatelets
CPT/HCPCS: 99212; G0463

== ENCOUNTER → 2024-08-07 10:59 | Day surgery (SDC) | payer MEDICARE, MEDICAID, SELFPAY ==
[2024-08-07 11:02] VITALS: BP 129/71; PULSE 58; RESP 16; TEMP 36.3; O2SAT 100; BMI 41.3
--- NOTE | 2024-08-08 14:42 | PC.NURSE ---
late entry: Pt presented for her procedure appt. Upon discussion with pt prior to her procedure pt stated she had only held her Plavix for 5 days. For this procedure pt would be required to hold this medication for 8 days prior to the procedure. BASIA Glass notified BILL Smith of this, states pt will need to be rescheduled for her procedure, unable to be done at this r/t not being off of blood thinner long enough. Pt rescheduled for August 14, pt educated for length of time to hold Plavix, pt verbalized understanding.
== END ==
LOC: SC.PAINP 11:01 → SC.PAIN 13:36
PROVIDERS: PCP Physician Assistant; Visit Provider Nurse Anesthetist, Certified Registered
DX: M47.812 Spondylosis without myelopathy or radiculopathy, cervical region (principal); M50.30 Other cervical disc degeneration, unspecified cervical region; Z53.09 Procedure and treatment not carried out because of other contraindication
CPT/HCPCS: 99212; G0463

== ENCOUNTER 2024-08-14 13:01 | Day surgery (SDC) | payer MEDICARE, MEDICAID, SELFPAY ==
[2024-08-14 13:15] VITALS: BP 99/58; PULSE 56; RESP 16; TEMP 36.4; O2SAT 97; BMI 42.7
[2024-08-14] MEDS: IOPAMIDOL-200 (41%);10ML VIAL 10 ML IV (13:37)
--- NOTE | 2024-08-14 13:44 | EXP.PAIN.PRO ---
Procedure Date: 08/14/24 Time: 13:15 Anesthesiologist:: Davi Cowan CRNA Complications:: None Pre-procedure Diagnosis:: Degenerative disc cervical spine multilevels. Cervical radiculopathy. Cervical spondylosis. Multilevel cervical facet arthropathy. Post-procedure Diagnosis:: Same. Indications for Procedure:: Patient is a very pleasant 59-year-old female who comes our clinic today for a right cervical C5-6, C6-7 radiofrequency ablation. Patient reports posterior cervical neck pain right greater than left. She describes it as constant, dull, aching. Patient reports right trapezius and shoulder pain at times. She rates her pain 7/10. Procedure Details:: Procedure Details: Right cervical RFA Informed consent was obtained and the risk and benefits of the procedure was explained to the patient. Patient was placed prone on the procedure table. The patient was prepped and draped in sterile fashion. C-arm fluoroscopy was used to view the lumbar spine. The skin and subcutaneous tissues were anesthetized using lidocaine. I placed 20-gauge RF needles into the facet joints of C5- C6 and C6-C7 levels on the right side. We underwent sensory stimulation. There is good sensory stimulation at 0.8 V. We underwent motor stimulation. There is no motor stimulation at 2.5 V. We then anesthetized these levels with lidocaine and Depo-Medrol. I used a total of 40 mg Depo-Medrol for both levels. I then burned both levels of C5-C6 and C6-C7 facet joint/medial branches on the right side for 4 minutes at 80 ?C. Patient tolerated the procedure well with no complication. Plan and Disposition:: Patient was discharged without incident.
[2024-08-14 13:46] VITALS: BP 135/74; PULSE 60; RESP 16; O2SAT 97
[2024-08-14] MEDS: BUPIVACAINE 0.25% 10ML INJ 25 MG IJ (14:02)
[2024-08-14] MEDS: LIDOCAINE 1% 5ML PF VIAL 5 ML (14:02)
[2024-08-14 14:03] VITALS: BP 161/89; PULSE 55; RESP 18; O2SAT 97
[2024-08-14 14:05] VITALS: BP 161/89; PULSE 55; RESP 18; O2SAT 97
== END 2024-08-14 13:46 | disposition home or self-care (01) ==
PROVIDERS: PCP Physician Assistant; Visit Provider Nurse Anesthetist, Certified Registered
DX: M47.812 Spondylosis without myelopathy or radiculopathy, cervical region (principal); M50.10 Cervical disc disorder with radiculopathy, unspecified cervical region
CPT/HCPCS: 64633; 64634; J1010; Q9966

== ENCOUNTER 2024-09-03 10:25 | Outpatient (POV) | payer MEDICARE, MEDICAID, SELFPAY ==
--- OUTSIDE RECORDS SUMMARY | 2024-09-03 10:27 | XMS_ITS ---
Laboratory report Created on: August 24, 2024 KENDALL FIGUEROA : 1965 Sex: Female Author Name DUSTIN SWIFT Organization Unknown PROBLEMS Problems List Code Description R73.09 R79.0 R74.8 RESULTS Laboratory Orders Date Order Code Test 2024-08-21 014517 BASIC METABOLIC PANEL (8) 2024-08-21 [id number] HEMOGLOBIN A1C 2024-08-21 [id number] PTH, INTACT Laboratory Results Date LOINC Test Value Unit Reference Range Interpre tation 2024-08-21 2345-7 GLUCOSE 113 MG/DL 70-99 H 2024-08-21 3094-0 BUN 12 MG/DL 6-24 2024-08-21 2160-0 CREATININE .68 MG/DL 0.57-1.00 2024-08-21 43355-2 EGFR 102 ML/MIN/1.73 >59 2024-08-21 3097-3 BUN/CREATININE RATIO 18 9-23 2024-08-21 2951-2 SODIUM 144 MMOL/L 269-940 6021-04-01 2823-3 POTASSIUM 3.8 MMOL/L 3.5-5.2 2024-08-21 2075-0 CHLORIDE 101 MMOL/L 96-106 2024-08-21 2028-9 CARBON DIOXIDE, TOTAL 28 MMOL/L 20-29 2024-08-21 04130-3 CALCIUM 9.2 MG/DL 8.7-10.2 2024-08-21 4548-4 HEMOGLOBIN A1C 5.5 % 4.8-5.6 2024-08-21 2731-8 PTH, INTACT 23 PG/ML 15-65
--- OUTSIDE RECORDS SUMMARY | 2024-09-03 10:27 | XMS_ITS ---
Laboratory report Created on: August 16, 2024 KENDALL FIGUEROA : 1965 Sex: Female Author Name DUSTIN SWIFT Organization Unknown PROBLEMS Problems List Code Description I10 E78.5 Z11.4 Z11.59 R53.83 RESULTS Laboratory Orders Date Order Code Test 2024-08-13 [id number] HCV ANTIBODY SANDRA ALE(PCR/KEITH) 2024-08-13 [id number] FE+TIBC+JULIET 2024-08-13 [id number] CBC WITH DIFFERE NTIAL/PLATELET 2024-08-13 [id number] VITAMIN B12 AND FOLATE 2024-08-13 [id number] COMP. METABOLIC PANEL (14) 2024-08-13 [id number] LIPID PANEL 2024-08-13 [id number] TSH 2024-08-13 [id number] VITAMIN D, 25-HY DROXY Laboratory Results Date LOINC Test Value Unit Reference Range Interpre tation 2024-08-13 81312-4 HCV AB NR NON REACTIVE 2024-08-13 2500-7 IRON BINDCAP(TIBC) 301 UG/DL 103-805 7934-03-24 2501-5 UIBC 253 UG/DL 645-102 6650-03-24 2498-4 IRON 48 UG/DL 27-159 2024-08-13 2502-3 IRON SATURATION 16 % 15-55 2024-08-13 2276-4 FERRITIN 59 NG/ML 15-150 2024-08-13 6690-2 WBC 8 X10E3/UL 3.4-10.8 2024-08-13 789-8 RBC 4.28 X10E6/UL 3.77-5.28 2024-08-13 718-7 HEMOGLOBIN 13 G/DL 11.1-15.9 2024-08-13 4544-3 HEMATOCRIT 39.4 % 34.0-46.6 2024-08-13 787-2 MCV 92 FL 79-97 2024-08-13 785-6 MCH 30.4 PG 26.6-33.0 2024-08-13 786-4 MCHC 33 G/DL 31.5-35.7 2024-08-13 788-0 RDW 13.5 % 11.7-15.4 2024-08-13 777-3 PLATELETS 352 X10E3/UL 167-970 8467-03-24 770-8 NEUTROPHILS 52 % 2024-08-13 736-9 LYMPHS 38 % 2024-08-13 5905-5 MONOCYTES 7 % 2024-08-13 713-8 EOS 2 % 2024-08-13 706-2 BASOS 1 % 2024-08-13 751-8 NEUTROPHILS (ABSOLUTE) 4.3 X10E3/UL 1.4-7.0 2024-08-13 731-0 LYMPHS (ABSOLUTE) 3 X10E3/UL 0.7-3.1 2024-08-13 742-7 MONOCYTES(ABSOLUTE) .5 X10E3/UL 0.1-0.9 2024-08-13 711-2 EOS (ABSOLUTE) .1 X10E3/UL 0.0-0.4 2024-08-13 704-7 BASO (ABSOLUTE) 0 X10E3/UL 0.0-0.2 2024-08-13 25114-8 IMMATURE GRANULOCYTES 0 % 2024-08-13 80007-8 IMMATURE GRANS (ABS) 0 X10E3/UL 0.0-0.1 2024-08-13 2132-9 VITAMIN B12 685 PG/ML 232-1245 2024-08-13 2284-8 FOLATE (FOLIC AC ID), SERUM 16.7 NG/ML >3.0 2024-08-13 2345-7 GLUCOSE 120 MG/DL 70-99 H 2024-08-13 3094-0 BUN 14 MG/DL 6-24 2024-08-13 2160-0 CREATININE .63 MG/DL 0.57-1.00 2024-08-13 71628-6 EGFR 103 ML/MIN/1.7 3 >59 2024-08-13 3097-3 BUN/CREATININE RATIO 22 9-23 2024-08-13 2951-2 SODIUM 145 MMOL/L 134-144 H 2024-08-13 2823-3 POTASSIUM 3 MMOL/L 3.5-5.2 L 2024-08-13 2075-0 CHLORIDE 100 MMOL/L 96-106 2024-08-13 2028-9 CARBON DIOXIDE, TOTAL 29 MMOL/L 20-29 2024-08-13 76797-4 CALCIUM 9.5 MG/DL 8.7-10.2 2024-08-13 2885-2 PROTEIN, TOTAL 6.4 G/DL 6.0-8.5 2024-08-13 1751-7 ALBUMIN 3.9 G/DL 3.8-4.9 2024-08-13 47807-3 GLOBULIN, TOTAL 2.5 G/DL 1.5-4.5 2024-08-13 1975-2 BILIRUBIN, TOTAL .4 MG/DL 0.0-1.2 2024-08-13 6768-6 ALKALINE PHOSPHATASE 187 IU/L 44-121 H 2024-08-13 1920-8 AST (SGOT) 13 IU/L 0-40 2024-08-13 1742-6 ALT (SGPT) 15 IU/L 0-32 2024-08-13 2093-3 CHOLESTEROL, TOTAL 145 MG/DL 880-745 3802-03-24 2571-8 TRIGLYCERIDES 104 MG/DL 0-149 2024-08-13 2085-9 HDL CHOLESTEROL 37 MG/DL >39 L 2024-08-13 55761-1 VLDL CHOLESTEROL KRISSY 19 MG/DL 5-40 2024-08-13 50404-9 LDL CHOL CALC ([facility]) 89 MG/DL 0-99 2024-08-13 33123-1 TSH .854 UIU/ML 0.450-4.500 2024-08-13 42029-5 VITAMIN D, 25-HYDROXY 47.6 NG/ML 30.0-100.0
--- NOTE | 2024-09-03 10:46 | A.OFFVIS_ITS ---
[facility] Disclaimer: The information contained in this section may have been updated after the patient was seen, as this information can be updated by other users. Medical History Pulmonary emphysema History of COPD Smoking greater than 30 pack years Coronary artery abnormality Elevated liver enzymes Abnormal liver function tests Morbid obesity with BMI of 40.0-44.9, adult Abnormal electrocardiogram [ECG] [EKG] Former smoker Family history of ischemic heart disease before age 50 Father-[place] @ 42 Brother-KAVITHA @42 Brother-CABG @45 Mother-AFib Dyspnea Typical angina Coronary artery calcification seen on CT scan Coronary artery disease Back pain, chronic Neck pain, chronic COPD (chronic obstructive pulmonary disease) Bipolar 1 disorder Insomnia Depression Anxiety Hyperlipidemia Hypertension 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 H/O lateral meniscus repair of left knee H/O lateral meniscus repair of right knee History of bladder surgery H/O colonoscopy H/O splenectomy Tubal ligation status History of appendectomy History of cholecystectomy Family History Other No significant family history Social History Smoking Status: Current every day smoker tobacco type: e-cigarettes alcohol intake: never substance use type: denies use current occupational status: unemployed Travel in the last 8 weeks: None PM Subjective & Objective Subjective Subjective:: Patient is a pleasant 59-year-old female who presents today for follow-up of her right cervical radiofrequency ablation C5-C6 and C6-C7 on 08/14/2024. Today she rates her pain a 2 out of 10 on the right side and 8 out of 10 on the left side. Patient denies any new trauma or injury. Patient does state that she did have burning sensations immediately after this procedure however it did take a couple days before that is down and then she did have the more significant improvement. She states she is rating at least 80% on the right side and would like to proceed forward with the left side now. She does state that she is still having chronic pain there on the left side when she turns her head to the left. She states that she feels like she still has quite a bit of limited range of motion and it is interfering with her ability to perform activities of daily living such as cooking and cleaning. Patient did have 2 successful blocks and only had the one-sided RFA due to the fact that it is very painful in the cervical vertebra and that we do break it apart. Patient is currently managed with methocarbamol 750 mg 3 times a day and tramadol 50 mg 1 to 2 tablets a day. Patient denies any side effects. She was given a 3-month supply at her last visit. Her Jose has been reviewed and is appropriate. Review of Systems: General: No recent weight changes, no fever, no sleep disturbances Respiratory: No cough, no shortness of air, no recurring pulmonary infections Cardiovascular/peripheral vascular: No chest pain, no palpitations, no edema, no shortness of breath Gastrointestinal: No new onset incontinence, normal bowel movements reported Genitourinary: No new onset incontinence Musculoskeletal: Left-sided neck pain Psychiatric: [Normal mood/affect] Neurological: [Denies weakness in extremities], [denies balance issues] Pain at rest (0-10 scale): 8 Objective Objective:: Physical Exam: General: Alert and oriented x3, no acute distress, pleasant and cooperative Lungs: Respirations even and unlabored, symmetrical chest expansion Eyes: PERRL Musculoskeletal: Flexion and extension of cervical [spine] somewhat guarded secondary to pain, [antalgic gait noted] positive left-sided Kemps Neurological: Speech clear, no gross sensory deficit Has patient had previous pain injection?: Yes Percent improvement in pain since last injection: More than 80% Conservative treatment options previously tried: Home exercise plan Length of treatment: Longer than 12 weeks Meds Home Medications and Allergies Home Medications ?Medication ?Instructions ?Recorded ?Confirmed ?Type albuterol sulfate 90 mcg/actuation 1 inh inhalation DIRECTED 09/02/22 08/14/24 History breath activated powder inhaler Breathing problems (ProAir RespiClick) buspirone 10 mg tablet 10 mg PO TID MOOD 09/02/22 08/14/24 History lamotrigine 200 mg tablet 200 mg PO DIRECTED SEIZURES 09/02/22 08/14/24 History aspirin 81 mg chewable tablet 81 mg PO DAILY Blood Thinner 12/23/22 08/14/24 History lurasidone 40 mg tablet (Latuda) 40 mg PO HS 11/10/23 08/14/24 History atorvastatin 80 mg tablet 80 mg PO DAILY Cholesterol #90 tabs 03/20/24 08/14/24 Rx nitroglycerin 0.4 mg sublingual 0.4 mg sublingual Q5M PRN chest 03/29/24 08/14/24 Rx tablet pain #25 tabs trazodone 50 mg tablet 50 mg PO HS PRN SLEEP 03/29/24 08/14/24 History clopidogrel 75 mg tablet (Plavix) 75 mg PO DAILY Blood Thinner #90 04/25/24 08/14/24 Rx tabs montelukast 10 mg tablet 10 mg PO DAILY #90 tabs 05/25/24 08/14/24 Rx (Singulair) bisoprolol fumarate 10 mg tablet See Rx Instructions .Route 06/01/24 08/14/24 Rx .COMPLEX #90 tabs isosorbide mononitrate 30 mg See Rx Instructions .Route 06/01/24 08/14/24 Rx tablet,extended release 24 hr .COMPLEX #90 tabs mupirocin 2 % topical ointment 1 applic topical BID infection 14 06/25/24 08/14/24 Rx days #15 grams methocarbamol 750 mg tablet 750 mg PO TID #90 tabs 07/18/24 08/14/24 Rx tramadol 50 mg tablet 50 mg PO BID PRN pain #60 tabs 07/18/24 08/14/24 Rx lisinopril 20 See Rx Instructions .Route 08/30/24 Rx mg-hydrochlorothiazide 25 mg tablet .COMPLEX #180 tabs New Prescriptions to Start Prescriptions: Allergies Allergy/AdvReac Type Severity Reaction Status Date / Time No Known Allergies Allergy Verified 07/17/24 13:04 Assessment and Plan *Assessment and plan (1) Degenerative disc disease, cervical: Status: Acute Category: Medical Code(s): M50.30 - Other cervical disc degeneration, unspecified cervical region (2) Facet arthropathy, cervical: Status: Acute Category: Medical Code(s): M47.812 - Spondylosis without myelopathy or radiculopathy, cervical region Plan Patient has had significant improvement following her cervical RFA on the right side with more than 80% improvement. Patient however is experiencing worsening pain on the left side with a positive Kemps test. I did review over the risk and benefits of a cervical RFA on the left side and she would like to proceed forward with this plan of care. Patient is currently on blood thinners written by Dr. Oswaldo Lassiter office and we will reach out to this provider and confirm she can stop this medication before proceeding forward with this injection. Patient has tried and failed conservative therapy including oral medication, heat and ice, topicals, at home stretching exercise that was physician guided. Patient has already had a successful RFA on the right side along with successful 2 brian gnostic blocks. We will submit to insurance for the cervical RFA left-sided C5- C6 and C6-C7 under fluoroscopy. Patient has been instructed to contact the clinic with any concerns before the next appointment. Dr. Davis has reviewed this note and agrees with this plan of care. This note was dictated using voice recognition software and make contain errors or omissions. All injections are used with Lidocaine, Bupivacaine and Depo Medrol. Occasionally urine drug screen is needed to verify patient's compliance with our office pain contract. This is ordered based off specific treatments related to chronic pain with the potential to abuse certain medications.
[2024-09-03 11:00] VITALS: BP 113/77; PULSE 63; RESP 18; O2SAT 95; BMI 41.3
== END 2024-09-03 23:59 | disposition home or self-care (01) ==
LOC: SC.PAIN 10:26
PROVIDERS: PCP Physician Assistant; Visit Provider Nurse Practitioner Family
DX: M50.30 Other cervical disc degeneration, unspecified cervical region (principal); M47.812 Spondylosis without myelopathy or radiculopathy, cervical region; F17.290 Nicotine dependence, other tobacco product, uncomplicated; Z73.89 Other problems related to life management difficulty; Z79.02 Long term (current) use of antithrombotics/antiplatelets
CPT/HCPCS: 99212; G0463

== ENCOUNTER 2024-09-28 10:56 | Outpatient (CLI) | payer MEDICARE, MEDICAID, SELFPAY ==
--- NOTE | 2024-09-28 11:15 | CA_ITS ---
FINAL REPORT TECHNIQUE: Rivera scale, color and spectral doppler images of the bilateral carotid arteries were obtained. CLINICAL HISTORY: BRUIT,SMOKING,HTN,HLD,CAD FINDINGS: Peak systolic velocity in the right internal carotid artery is 107 cm/sec. The internal carotid to common carotid artery ratio is 1.14. There is less than 50% carotid artery stenosis and no significant plaque formation. The right vertebral artery is normal in direction. Peak systolic velocity in the left internal carotid artery is 114 cm/sec. The internal carotid to common carotid artery ratio is 1.30. There is less than 50% carotid artery stenosis and no significant plaque formation. The left vertebral artery is normal in direction. IMPRESSION: Less than 50% carotid artery stenosis bilaterally. Normal peak systolic velocities and normal internal to common carotid artery ratios bilaterally. Reviewed, Interpreted and Dictated by Diamond Dick MD Transcribed by Erin Mcnulty Authenticated and [facility]
== END 2024-09-28 23:59 | disposition home or self-care (01) ==
LOC: RT 10:57
PROVIDERS: PCP Physician Assistant; Visit Provider Physician Assistant
DX: I65.23 Occlusion and stenosis of bilateral carotid arteries (principal); I25.10 Atherosclerotic heart disease of native coronary artery without angina pectoris; E78.5 Hyperlipidemia, unspecified; I10 Essential (primary) hypertension; F17.200 Nicotine dependence, unspecified, uncomplicated
CPT/HCPCS: 93880

== ENCOUNTER 2024-10-02 14:29 | Day surgery (SDC) | payer MEDICARE, MEDICAID, SELFPAY ==
[2024-10-02 14:39] VITALS: BP 103/56; PULSE 59; RESP 16; TEMP 36.8; O2SAT 100; BMI 42.0
[2024-10-02] MEDS: LIDOCAINE 1% 5ML PF VIAL 5 ML (14:53)
[2024-10-02 14:54] VITALS: BP 124/62; PULSE 67; RESP 18; O2SAT 98
[2024-10-02] MEDS: BUPIVACAINE 0.25% 10ML INJ 25 MG IJ (14:54)
[2024-10-02] MEDS: DEXAMETHASONE 10MG/ML 1ML VIAL 10 MG (14:54)
[2024-10-02 14:55] VITALS: BP 124/62; PULSE 67; RESP 18; O2SAT 98
--- NOTE | 2024-10-02 15:01 | EXP.PAIN.PRO ---
Procedure Date: 10/02/24 Time: 15:00 Anesthesiologist:: Davi Cowan CRNA Complications:: None Pre-procedure Diagnosis:: Degenerative disc disease cervical spine multilevels. Cervical radiculopathy. Cervical arthropathy. Cervical spondylosis. Post-procedure Diagnosis:: Same. Indications for Procedure:: Patient is a very pleasant 59-year-old female who comes our clinic today for cervical radiofrequency ablation on the left C5-6, C6-7 level. Patient doing very well since having the same procedure done on the right side. She describes the left posterior cervical neck pain as constant, dull, aching. She rates her pain 6/10. Procedure Details:: Informed consent was obtained and the risk and benefits of the procedure was explained to the patient. Patient was placed prone on the procedure table. The patient was prepped and draped in sterile fashion. C-arm fluoroscopy was used to view the lumbar spine. The skin and subcutaneous tissues were anesthetized using lidocaine. I placed 20-gauge RF needles into the facet joints of C5- C6 and C6-C7 levels on the left side. We underwent sensory stimulation. There is good sensory stimulation at 0.8 V. We underwent motor stimulation. There is no motor stimulation at 2.5 V. We then anesthetized these levels with lidocaine and Depo-Medrol. I used a total of 40 mg Depo-Medrol for both levels. I then burned both levels of C5-C6 and C6-C7 facet joint/medial branches on the left side for 4 minutes at 80 ?C. Patient tolerated the procedure well with no complication. Plan and Disposition:: Patient was discharged without incident.
[2024-10-02 15:03] VITALS: BP 110/45; PULSE 75; RESP 16; O2SAT 98
== END 2024-10-02 15:03 | disposition home or self-care (01) ==
PROVIDERS: PCP Physician Assistant; Visit Provider Nurse Anesthetist, Certified Registered
DX: M47.812 Spondylosis without myelopathy or radiculopathy, cervical region (principal); M50.10 Cervical disc disorder with radiculopathy, unspecified cervical region
CPT/HCPCS: 64633; 64634; J1100

== ENCOUNTER 2024-10-04 15:14 | Outpatient (CLI) | payer MEDICARE, MEDICAID, SELFPAY ==
--- NOTE | 2024-10-04 15:16 | CT_ITS ---
FINAL REPORT TECHNIQUE: Axial CT images of the chest were obtained without contrast. Low-dose protocol was utilized. This study was performed with techniques to keep radiation doses as low as reasonably achievable (ALARA). Individualized dose reduction techniques using automated exposure control or adjustment of mA and/or kV according to the patient's size were employed. CLINICAL HISTORY: lung cancer screening, smoker, 1 pack per day x 30 yrs, copd, cad, lung cancer history in paternal grandfather COMPARISON: 10/04/2023 FINDINGS: CT CHEST WITHOUT, LOW DOSE SCREENING CT Di Vol: 2.90 mGy DLP: 100.55 mGy*cm Calcified left hilar lymph nodes are noted. There is no significant mediastinal mass or adenopathy. The heart size is normal. There are dense coronary artery calcifications. There is no pleural or pericardial effusion. The lung windows show a stable nodule in the medial posterior right major fissure. There is a pleural-based nodule in the periphery of the right lung base measuring 7 mm in greatest dimension, similar in appearance to the previous study, and well seen on image 60 of series 3. There is a stable nodule in the inferior right lower lobe measuring 4 mm on image 63 of series 3 and a stable pleural-based nodule in the posterior right upper lobe measuring 4 mm on image 16 of series 3. Limited images of the upper abdomen demonstrate no acute findings. IMPRESSION: Stable lung nodules as above. LR Category 2: 12 month follow-up low-dose chest CT is recommended per Fleischner criteria. Reviewed, Interpreted and Dictated by Grayson Rodriges MD Transcribed by Erin Mcnulty Authenticated and [facility]
== END 2024-10-04 23:59 | disposition home or self-care (01) ==
LOC: RAD 15:15
PROVIDERS: PCP Physician Assistant; Visit Provider Internal Medicine Pulmonary Disease
DX: Z12.2 Encounter for screening for malignant neoplasm of respiratory organs (principal); R91.8 Other nonspecific abnormal finding of lung field; J44.9 Chronic obstructive pulmonary disease, unspecified; I25.10 Atherosclerotic heart disease of native coronary artery without angina pectoris; Z80.1 Family history of malignant neoplasm of trachea, bronchus and lung
CPT/HCPCS: 71271

== ENCOUNTER 2024-10-29 10:27 | Outpatient (POV) | payer MEDICARE, MEDICAID, SELFPAY ==
--- OUTSIDE RECORDS SUMMARY | 2024-10-29 10:32 | XMS_ITS | Referral Summary ---
Author Organization [facility] Address [address] [place] [id number] Care Team Providers Care Manager Materials Management Name Role Phone KamaljitAriellenabil Watson PA-C Primary Care Provider [phone] Social History Tobacco Use Types Packs/Day Years Used Date Smoking Tobacco: Never Assessed Comments Unknown Sex and Gender Information Value Date Recorded Sex Assigned at Not on file Legal Sex Female 2:03 PM CDT Gender Identity Not on file Sexual Orientation Not on file Plan of Treatment Not on file Insurance [facility]IC[facility]UE SHIELD Care Teams Manager Materials Management Relationship Specialty Start Date End Date Gabriela Mari PA-C [address] [place] [address] PCP - General Physician Double End Tenon Operator 02/07/23
--- OUTSIDE RECORDS SUMMARY | 2024-10-29 10:32 | XMS_ITS | Clinical Summary ---
Author Organization [facility] Address [address] [place] [address] Care Team Providers Care Hand Box Coverer Name Role Phone Arielle Mariie Walter MCADAMS Primary Care Provider [phone] Allergies Active Allergy Reactions Criticality Noted Date Comments Molds & Smuts Unknown - Patient st ates they do not know rxn details Low 08/11/2016 Onion Swelling High 03/01/2019 Medications Albuterol Sulfate 108 (90 Base) MCG/ACT aerosol powder As Directed 3 Active ASPIRIN 81 MG chewable tablet 1 tablet (81 mg). 3 Active atorvastatin (Lipitor) 80 MG tablet 1 tablet (80 mg). 3 Active bisoprolol (Zebeta) 10 MG tablet 1 tablet (10 mg). 3 Active busPIRone (Buspar) 10 MG tablet 1 tablet (10 mg). 3 Active clopidogrel (Plavix) 75 MG tablet 1 tablet (75 mg). 3 Active escitalopram (Lexapro) 20 MG tablet 1 tablet (20 mg). 3 Active esomeprazole (NexIUM) [address] capsule 1 capsule (20 mg). 3 Active hydrOXYzine HCl (Atarax) 25 MG tablet 1 tablet (25 mg). 3 Active isosorbide mononitrate ER (Imdur) 30 MG 24 hr tablet 1 tablet (30 mg). 3 Active lamoTRIgine (LaMICtal) 200 MG tablet 1 tablet (200 mg). 3 Active lisinopril-hydro CHLOROthiazide 20-25 MG tablet 1 tablet. 3 Active Lurasidone HCl 60 MG tablet 4 Active methocarbamol (Robaxin) 750 MG tablet 1 tablet (750 mg). 3 Active nitroglycerin (Nitrostat) 0.4 MG SL tablet 1 tablet (0.4 mg). 3 Active traMADol (Ultram) 50 MG tablet 1 tablet (50 mg). 4 Active Umeclidinium-Kaycee anterol 62.5-25 MCG/ACT aerosol powder .COMPLEX 3 Active CRANBERRY PO Take 300 mg by mouth 1 (one) time each day. Active VITAMIN D, CHOLECALCIFEROL, PO Take 5,000 Units by mouth 1 (one) time each day. Active IRON, FERROUS GLUCONATE, PO Take 1 tablet by mouth 2 (two) times a week. Active multivitamin with minerals (Cerovite) 18-400 mg-mcg tablet tablet Take by mouth. Active cephalexin (Keflex) 500 MG capsule 4 Active montelukast (Singulair) 10 MG tablet 4 Active Trelegy Ellipta 200-62.5-25 MCG/ACT aerosol powder 4 Active traZODone (Desyrel) 150 MG tablet 4 Active triamcinolone (Kenalog) 0.1 % cream 4 Active lurasidone (Latuda) 40 MG tablet 4 Active Active Problems Problem Noted Date Diagnosed Date CEZAR (obstructive sleep apnea) 07/04/2023 Immunizations Immunization Administration Dates Next Due Hib (PRP-OMP) 01/23/2015,01/08/2015 Influenza, Unspecified 03/02/2019 Influenza, injectable, quadr ivalent, preservative free 03/30/2023,05/04/2022,05/19/2021,03/04,02/13/2018,02/18/2017,03/10/2016 Meningococcal MCV4P 01/08/2015 Pneumococcal 20-brenda Conj Vaccine 06/02/2023 Pneumococcal Polysaccharide PPV23 01/06/2015 Tdap 06/25/2023 Family History Medical History Relation Name Comments Diabetes Brother Kt York COPD Father Nano Duncan Heart attack Father Nano Duncan Heart disease Father Nano Duncan Hypertension Father Nano Duncan Stroke Father Nano Duncan Heart disease Mother Emily York Relation Name Status Comments Brother Kt York Father Nano Duncan Mother Emily York Social History Tobacco Use Types Packs/Day Years Used Date Smoking Tobacco: Every Day Pipe Passive Smoke Exposure: Past Tobacco Cessation:Ready to Q uit: Not Asked; Counseling Given: Not Answered Comments:Ise to smoke 1 pk per day until 07-06-2022 then went to vaping Alcohol Use Standard Drinks/Week Comments Not Currently 0 (1 standard drink = 0.6 oz pur e alcohol) Comments Unknown Sex and Gender Information Value Date Recorded Sex Assigned at Not on file Legal Sex Female 10:49 AM EDT Gender Identity Not on file Sexual Orientation Not on file Last Filed Vital Signs Vital Sign Reading Time Taken Comments Blood Pressure 110/73 05/08/2024 9:11 AM EST Pulse 55 05/08/2024 9:11 AM EST Temperature - - Respiratory Rate - - Oxygen Saturation 97% 05/08/2024 9:11 AM EST Inhaled Oxygen Concentration - - Weight 98.5 kg (217 lb 2.5 oz) 05/08/2024 9:11 A M EST Height 152.4 cm (5') 05/08/2024 9:11 AM EST Body Mass Index 42.41 05/08/2024 9:11 AM EST Plan of Treatment Upcoming Encounters Date Type Department Care Team (Late st Contact Info) Description 11/06/2024 9:00 AM EDT Office Visit [facility] [address] [place] [address] Michael Paredes DO [address] [place] [address] Health Maintenance Due Date Last Done Comments [facility]-Depression Screening 1965 [facility]-HIV Screening 1965 [facility]-Hepatitis C Screening 1965 [facility]-Medicare Annual Wellness (AWV) 1965 [facility]-Infant/Child/Adol SDOH Screenings 1965 [facility]- SDOH Screenings 1985 [facility]-Adult SDOH Screenings 1985 [facility]-Hepatitis B Vaccines (1 of 3 - 19+ 3-dose series) 1986 [facility]-HPV/Cotest 1997 CT Colonography 01/30/2012 Colonoscopy 01/30/2012 FIT-DNA 01/30/2012 FIT 01/30/2012 FOBT 01/30/2012 Sigmoidoscopy 01/30/2012 [facility]-Colorectal Cancer Screening 01/30/2012 [facility]-Zoster Vaccines (1 of 2) 2017 [facility]-Breast Cancer Screening 09/25/2020 05/0 10/2018, 09/25/2018, 09/23/2017, Additional history exists [facility]-Cervical Cancer Screening 05/03/2021 [facility]-Pap Smear 05/03/2021 05/03/2018 [facility]-EGBUT-14 Vaccine ( season) 2024 [facility]-Influenza Vaccine (Season Ended) 2025 03/30/2023, 05/04/2022, 05/19/2021, Additional history exists [facility]-DTaP,Tdap,and Td Vaccines (2 - Td or Tdap) 06/25/2033 06/25/2023 [facility]-HIB Vaccines Aged Out 01/23/2015, 01/08/2015 N o longer eligible based on patient's age to complete this topic [facility]-Pneumococcal Vaccine: 50+ Years Completed 06/02/2023, 01/06/2015 [facility]-Obesity Intervention Completed 024, 11/07/2023, 08/18/2023, Additional history exists HPV Vaccines Aged Out No longer eligi ble based on patient's age to complete this topic [facility]-Hepatitis A Vaccines Aged Out No longer eligible based on patient's age to complete this topic [facility]-IPV Vaccines Aged Out No longer e ligible based on patient's age to complete this topic [facility]-Rotavirus Vaccines Aged Out No lo nger eligible based on patient's age to complete [place] [address] [employer] MEDICARE [employer] MEDICARE Care Teams Hand Box Coverer Relationship Specialty Start Date End Date Gabriela Mari PA [address] [place] [address] PCP - General 09/29/22
--- OUTSIDE RECORDS SUMMARY | 2024-10-29 10:32 | XMS_ITS | Encounter Summary ---
Author Organization Healthcare Address [address] [place] [address] Care Team Providers Care Stogy Roller Name Role Phone Gabriela Mari Primary Care Provider [phone] Reason for Referral * Consultation (Routine) - Closed Specialty Diagnoses / Procedures Referred By Contac t Referred To Contact Sleep Medicine Diagnoses Sleep apnea, primary central Obstructive sleep apnea (adult) (pediatric) John Pickering MD [address] [facility], [address] [address] Phone: tel: fax: [facility] [address] [place] [address] Phone: tel: fax: Referral ID Status Reason Start Date Expiration Date V isits Requested Visits Authorized [id number] Closed Specialty Services Required 05/11/2023 11/09/2024 1 1 Encounter Details Date Type Department Care Team (Late st Contact Info) Description 05/11/2023 [facility] [address] [place] [address] John Pickering MD [address] [place] [address], [place] [address] Sleep apnea, primary central (Primary Dx); Obstructive sleep apnea (adult) (pediatric) Social History Tobacco Use Types Packs/Day Years Used Date Smoking Tobacco: Never Assessed Comments Unknown Sex and Gender Information Value Date Recorded Sex Assigned at Not on file Legal Sex Female 10:49 AM EDT Gender Identity Not on file Sexual Orientation Not on file documented as of this encounter Plan of Treatment Upcoming Encounters Date Type Department Care Team (Late st Contact Info) Description 11/06/2024 9:00 AM EDT Office Visit [facility] [address] [place] [address] Michael Paredes DO [address] [place] [address] Scheduled Referrals Name Type Priority Associated Diagnoses Order Schedule Ambulatory referral to Sleep Medicine Outpatient Referral Routine Sleep apnea, primary central Obstructive sleep apnea (adult) (pediatric) Expected: 05/11/2023 (Approximate), Expires: 11/09/2024 documented as of this encounter Visit Diagnoses Diagnosis Sleep apnea, primary central- Primary Primary central sleep apnea Obstructive sleep apnea (adult) (pediatric) documented in this encounter Care Teams Stogy Roller Relationship Specialty Start Date End Date Gabriela Mari PA [address] [place] [address] PCP - General 09/29/22 documented as of this encounter
--- OUTSIDE RECORDS SUMMARY | 2024-10-29 10:32 | XMS_ITS | Clinical Summary ---
Author Organization [facility] Address [address] [place] [address] Care Team Providers Care Supervisor Burling And Joining Name Role Phone KamaljitAriellenabil Watson PA-C Primary Care Provider [phone] Social History Tobacco Use Types Packs/Day Years Used Date Smoking Tobacco: Never Assessed Comments Unknown Sex and Gender Information Value Date Recorded Sex Assigned at Not on file Legal Sex Female 2:03 PM CDT Gender Identity Not on file Sexual Orientation Not on file Plan of Treatment Not on file Insurance [employer] [facility] MEDIC[facility] PART [facility]BL[facility] SHIELD Care Teams Supervisor Burling And Joining Relationship Specialty Start Date End Date Gabriela Mari PA-C [address] [place] [address] PCP - General 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
--- OUTSIDE RECORDS SUMMARY | 2024-10-29 10:32 | XMS_ITS | Data Portability ---
Author Organization [employer] [facility] Address [address] [place] [address] Assessment No assessment recorded. Plan of Treatment Reminders Order Date Submit Date Provider Last Modified By Organization Details Last Modified Time Details Appointments None recorded. Lab CMP, serum or plasma 2024 [facility]25 [facility] [address] [place], [address], 10:08:40 CBC w/ auto diff 2024 025 [facility] [address] [place], [address], 5 10:08:40 vitamin D, 25-hydroxy, total, serum 2024 025 [facility]), [address] [place], [address], 5 10:08:43 TSH, ultra-sensi tive, serum 2024 025 [facility] [address] [place], [address], 5 10:08:42 Hepatitis C IgG Ab, qual, serum 2024 025 [facility]), [address] [place], [address], 5 10:08:42 lipid panel, serum 2024 025 RAMESH [facility] ([place]), [address], [place], [address], 10:08:41 cobalamin and folate panel, serum 2024 025 [facility] ([place]), [address], [place], [address], 10:08:41 iron + TIBC + ferritin, serum 2024 025 RAMESH [facility] ([place]), [address], [place], [address], 10:08:39 HIV 1 + 2, meaningful use set 2024 025 RAMESH [facility] ([place]), [address], [place], [address], 10:08:43 Referral None recorded. Procedures None recorded. Surgeries None recorded. Imaging MAMMO, screening, bilateral 2024 025 [facility] ([facility]), [address], [place], [address], 11:29:02 Medication Orders None recorded. Patient TargetsNo targets recorded. Patient Instructions Encounter Date Encounter Id Patient Instructions Last Modified By Organization Details Last Modified Time 06/15/2024 [id number] mammogram: about this test [email or web address] Not available 06/15/2024 16:21:13 high cholesterol : care instructions [email or web address] Not available 06/15/2024 17:32:15 bipolar disorder : care instructions Not available 06/15/2024 17:32:15 learning about mood disorders [email or web address] Not available 06/15/2024 17:32:15 body mass index: care instructions [email or web address] Not available 06/15/2024 17:32:15 learning about healthy weight [email or web address] Not available 06/15/2024 17:32:15 sleep apnea: car e instructions [email or web address] Not available 06/15/2024 17:32:15 high blood pressure: care instructions Not available 06/15/2024 17:32:15 learning about high blood pressure [email or web address] Not available 06/15/2024 17:32:15 08/13/2024 [id number] high blood pressure: care instructions Not available 08/13/2024 13:32:02 learning about high blood pressure [email or web address] Not available 08/13/2024 13:32:02 high cholesterol : care instructions [email or web address] Not available 08/13/2024 13:32:02 HIV testing: car e instructions [email or web address] Not available 08/13/2024 13:32:02 Reason for Referral None Reported. Results Created Date Observation Date Name Description Value Unit Range Abnormal Flag Note LastModifiedBy Organization Detail LastModifiedTime 08/14/1908/14/2024 FE+TI BC+FE R iron bind.cap.(TI BC) 301 ug/dL 250-45 0 normal Not Available [facility] ([facility]) [address] [place], [address], 08/14/2024 10:08:39 08/14/1908/14/2024 FE+TI BC+FE R UIBC 253 ug/dL 131-42 5 normal Not Available [facility] ([facility]) [address] [place], [address], 08/14/2024 10:08:39 08/14/19 25 08/14/2024 FE+TI BC+FE R iron 48 ug/dL 27-159 normal Not Available [facility] ([facility]) [address] [place], [address], 08/14/2024 10:08:39 08/14/1908/14/2024 FE+TI BC+FE R iron saturation 16 % 15-55 normal Not Available [facility] ([facility]) [address] [place], [address], 08/14/2024 10:08:39 08/14/19 25 08/14/2024 FE+TI BC+FE R ferritin 59 NG/mL 15-150 normal Not Available [facility] ([facility]) [address] [facility], [place], [address], 08/14/2024 10:08:39 08/14/1908/14/2024 CBC WITH DIFFE RENTI AL/PL ATELE T WBC 8.0 x10e3 /uL 3.4-10 .8 normal Not Available [facility] ([facility]) [address] [facility], [place], [address], 08/14/2024 10:08:40 08/14/1908/14/2024 CBC WITH DIFFE RENTI AL/PL ATELE T RBC 4.28 x10e6 /uL 3.77-5 .28 normal Not Available [facility] ([facility]) [address] [facility], [place], [address], 08/14/2024 10:08:40 08/14/1908/14/2024 CBC WITH DIFFE RENTI AL/PL ATELE T hemoglobin 13.0 g/dL 11.1-1 5.9 normal Not Available [facility] ([facility]) [address] [place], [address], 08/14/2024 10:08:40 08/14/19 25 08/14/2024 CBC WITH DIFFE RENTI AL/PL ATELE T hematocrit 39.4 % 34.0-4 6.6 normal Not Available [facility] ([facility]) [address] [place], [address], 08/14/2024 10:08:40 08/14/1908/14/2024 CBC WITH DIFFE RENTI AL/PL ATELE T MCV 92 fL 79-97 normal Not Available [facility] ([facility]) [address] [place], [address], 08/14/2024 10:08:40 08/14/19 25 08/14/2024 CBC WITH DIFFE RENTI AL/PL ATELE T MCH 30.4 pg 26.6-3 3.0 normal Not Available [facility] ([facility]) [address] [facility], [place], [address], 08/14/2024 10:08:40 08/14/1908/14/2024 CBC WITH DIFFE RENTI AL/PL ATELE T MCHC 33.0 g/dL 31.5-3 5.7 normal Not Available [facility] ([facility]) [address] [facility], [place], [address], 08/14/2024 10:08:40 08/14/1908/14/2024 CBC WITH DIFFE RENTI AL/PL ATELE T RDW 13.5 % 11.7-1 5.4 Not Available [facility] ([facility]) [address] [facility], [place], [address], 08/14/2024 10:08:40 08/14/1908/14/2024 CBC WITH DIFFE RENTI AL/PL ATELE T platelets 352 x10e3 /uL 150-45 0 normal Not Available [facility] ([facility]) [address] [place], [address], 08/14/2024 10:08:40 08/14/19 25 08/14/2024 CBC WITH DIFFE RENTI AL/PL ATELE T neutrophils 52 % not estab. normal Not Available [facility] ([facility]) [address] [place], [address], 08/14/2024 10:08:40 08/14/1908/14/2024 CBC WITH DIFFE RENTI AL/PL ATELE T lymphs 38 % not estab. normal Not Available [facility] ([facility]) [address] [place], [address], 08/14/2024 10:08:40 08/14/19 25 08/14/2024 CBC WITH DIFFE RENTI AL/PL ATELE T monocytes 7 % not estab. normal Not Available [facility] ([facility]) [address] [place], [address], 08/14/2024 10:08:40 08/14/1908/14/2024 CBC WITH DIFFE RENTI AL/PL ATELE T eos 2 % not estab. normal Not Available [facility] ([facility]) [address] [facility], [place], [address], 08/14/2024 10:08:40 08/14/1908/14/2024 CBC WITH DIFFE RENTI AL/PL ATELE T basos 1 % not estab. normal Not Available [facility] ([facility]) [address] [place], [address], 08/14/2024 10:08:40 08/14/1908/14/2024 CBC WITH DIFFE RENTI AL/PL ATELE T immature cells CHANGE MANAGEMENT ANALYST Not Available [facility] ([facility]) [address] [facility], [place], [address], 08/14/2024 10:08:40 08/14/1908/14/2024 CBC WITH DIFFE RENTI AL/PL ATELE T neutrophils (absolute) 4.3 x10e3 /uL 1.4-7. 0 normal Not Available [facility] ([facility]) [address] [place], [address], 08/14/2024 10:08:40 08/14/1908/14/2024 CBC WITH DIFFE RENTI AL/PL ATELE T lymphs (absolute) 3.0 x10e3 /uL 0.7-3. 1 normal Not Available [facility] ([facility]) [address] [place], [address], 08/14/2024 10:08:40 08/14/1908/14/2024 CBC WITH DIFFE RENTI AL/PL ATELE T monocytes(ab solute) 0.5 x10e3 /uL 0.1-0. 9 normal Not Available [facility] ([facility]) [address] [facility], [place], [address], 08/14/2024 10:08:40 08/14/19 25 08/14/2024 CBC WITH DIFFE RENTI AL/PL ATELE T eos (absolute) 0.1 x10e3 /uL 0.0-0. 4 normal Not Available [facility] ([facility]) [address] [facility], [place], [address], 08/14/2024 10:08:40 08/14/1908/14/2024 CBC WITH DIFFE RENTI AL/PL ATELE T baso (absolute) 0.0 x10e3 /uL 0.0-0. 2 normal Not Available [facility] ([facility]) [address] [facility], [place], [address], 08/14/2024 10:08:40 08/14/1908/14/2024 CBC WITH DIFFE RENTI AL/PL ATELE T immature granulocytes 0 % not estab. Not Available [facility] ([facility]) [address] [facility], [place], [address], 08/14/2024 10:08:40 08/14/1908/14/2024 CBC WITH DIFFE RENTI AL/PL ATELE T immature grans (abs) 0.0 x10e3 /uL 0.0-0. 1 Not Available [facility] ([facility]) [address] [place], [address], 08/14/2024 10:08:40 08/14/19 25 08/14/2024 CBC WITH DIFFE RENTI AL/PL ATELE T NRBC CHANGE MANAGEMENT ANALYST Not Available [facility] ([facility]) [address] [place], [address], 08/14/2024 10:08:40 08/14/19 25 08/14/2024 CBC WITH DIFFE RENTI AL/PL ATELE T hematology comments: CHANGE MANAGEMENT ANALYST Not Available [facility] ([facility]) [address] [place], [address], 08/14/2024 10:08:40 08/14/1908/14/2024 COMP. METAB OLIC PANEL (14) glucose 120 mg/dL 70-99 above high normal Not Available [facility] ([facility]) [address] [facility] [place], [address], 08/14/2024 10:08:40 08/14/1908/14/2024 COMP. METAB OLIC PANEL (14) BUN 14 mg/dL 6-24 normal Not Available [facility] ([facility]) [address] [facility] [place], [address], 08/14/2024 10:08:40 08/14/19 25 08/14/2024 COMP. METAB OLIC PANEL (14) creatinine 0.63 mg/dL 0.57-1 .00 normal Not Available [facility] ([facility]) [address] [facility] [place], [address], 08/14/2024 10:08:40 08/14/19 25 08/14/2024 COMP. METAB OLIC PANEL (14) eGFR 103 mL/mi n/1.7 3 >59 normal Not Available [facility] ([facility]) [address] [facility] [place], [address], 08/14/2024 10:08:40 08/14/1908/14/2024 COMP. METAB OLIC PANEL (14) BUN/creatini ne ratio 22 9-23 normal Not Available [facility] ([facility]) [address] [facility] [place], [address], 08/14/2024 10:08:40 08/14/1908/14/2024 COMP. METAB OLIC PANEL (14) sodium 145 mmol/ L 134-14 4 above high normal Not Available [facility] ([facility]) [address] [place], [address], 08/14/2024 10:08:40 08/14/1908/14/2024 COMP. METAB OLIC PANEL (14) potassium 3.0 mmol/ L 3.5-5. 2 below low normal Not Available [facility] ([facility]) [address] [facility] [place], [address], 08/14/2024 10:08:40 08/14/1908/14/2024 COMP. METAB OLIC PANEL (14) chloride 100 mmol/ L 96-106 normal Not Available [facility] ([facility]) [address] [place], [address], 08/14/2024 10:08:40 08/14/1908/14/2024 COMP. METAB OLIC PANEL (14) carbon dioxide, total 29 mmol/ L 20-29 normal Not Available [facility] ([facility]) [address] [facility] [place], [address], 08/14/2024 10:08:40 08/14/1908/14/2024 COMP. METAB OLIC PANEL (14) calcium 9.5 mg/dL 8.7-10 .2 normal Not Available [facility] ([facility]) [address] [facility] [place], [address], 08/14/2024 10:08:40 08/14/1908/14/2024 COMP. METAB OLIC PANEL (14) protein, total 6.4 g/dL 6.0-8. 5 normal Not Available [facility] ([facility]) [address] [facility] [place], [address], 08/14/2024 10:08:40 08/14/1908/14/2024 COMP. METAB OLIC PANEL (14) albumin 3.9 g/dL 3.8-4. 9 normal Not Available [facility] ([facility]) [address] [facility] [place], [address], 08/14/2024 10:08:40 08/14/1908/14/2024 COMP. METAB OLIC PANEL (14) globulin, total 2.5 g/dL 1.5-4. 5 Not Available [facility] ([facility]) [address] [place], [address], 08/14/2024 10:08:40 08/14/19 25 08/14/2024 COMP. METAB OLIC PANEL (14) bilirubin, total 0.4 mg/dL 0.0-1. 2 normal Not Available [facility] ([facility]) [address] [place], [address], 08/14/2024 10:08:40 08/14/19 25 08/14/2024 COMP. METAB OLIC PANEL (14) alkaline phosphatase 187 IU/L 44-121 above high normal Not Available [facility] ([facility]) [address] [place], [address], 08/14/2024 10:08:40 08/14/19 25 08/14/2024 COMP. METAB OLIC PANEL (14) AST (SGOT) 13 IU/L 0-40 normal Not Available [facility] ([facility]) [address] [place], [address], 08/14/2024 10:08:40 08/14/19 25 08/14/2024 COMP. METAB OLIC PANEL (14) ALT (SGPT) 15 IU/L 0-32 normal Not Available [facility] ([facility]) [address] [place], [address], 08/14/2024 10:08:40 08/14/19 25 08/14/2024 LIPID PANEL cholesterol, total 145 mg/dL 100-19 9 normal Not Available [facility] ([facility]) [address] [place], [address], 08/14/2024 10:08:41 08/14/19 25 08/14/2024 LIPID PANEL triglyceride s 104 mg/dL 0-149 normal Not Available [facility] ([facility]) [address] [place], [address], 08/14/2024 10:08:41 08/14/19 25 08/14/2024 LIPID PANEL HDL cholesterol 37 mg/dL >39 below low normal Not Available [facility] ([facility]) [address] [place], [address], 08/14/2024 10:08:41 08/14/19 25 08/14/2024 LIPID PANEL VLDL cholesterol bairon 19 mg/dL 5-40 Not Available [facility] ([facility]) [address] [place], [address], 08/14/2024 10:08:41 08/14/19 25 08/14/2024 LIPID PANEL LDL chol calc ([facility]) 89 mg/dL 0-99 Not Available [facility] ([facility]) [address] [place], [address], 08/14/2024 10:08:41 08/14/19 25 08/14/2024 LIPID PANEL LDL calc comment: CHANGE MANAGEMENT ANALYST Not Available [facility] ([facility]) [address] [place], [address], 08/14/2024 10:08:41 08/14/19 25 08/14/2024 VITAM IN B12 AND FOLAT E vitamin B12 685 pg/mL 232-12 45 normal Not Available [facility] ([facility]) [address] [place], [address], 08/14/2024 10:08:41 08/14/19 25 08/14/2024 VITAM IN B12 AND FOLAT E folate (folic acid), serum 16.7 NG/mL >3.0 normal A serum folat e young ntrat ion of less than 3.1 ng/mL is consi dered to repre sent clini bairon defic iency . Not Available [facility] ([facility]) [address] [place], [address], 08/14/2024 10:08:41 08/14/19 25 08/14/2024 HCV ANTIB HUGO CASCA DE(PC R/GEN O) HCV Ab Non Reacti ve non reacti ve Not Available [facility] ([facility]) [address] [facility], [place], [address], 08/14/2024 10:08:42 08/14/19 25 08/14/2024 HCV ANTIB HUGO CASCA DE(PC R/GEN O) interpretati on: Commen t Not infec abisai with HCV unles s early or acute infec tion is suspe cted (whic h may be delay ed in an immun ocomp romis ed indiv idual ), or other evide nce exist s to indic ate HCV infec tion. Not Available [facility] ([facility]) [address] [facility], [place], [address], 08/14/2024 10:08:42 08/14/19 25 08/14/2024 TSH TSH 0.854 uIU/m L 0.450- 4.500 normal Not Available [facility] ([facility]) [address] [facility], [place], [address], 08/14/2024 10:08:42 08/14/19 25 08/14/2024 VITAM IN D, 25-HY DROXY vitamin D, 25-hydroxy 47.6 NG/mL 30.0-1 00.0 Vitam in D defic iency has been defin ed by the Insti tute of Medic ine and an Endoc rine Socie ty pract ice guide line as a level of serum 25-OH vitam in D less than 20 ng/mL (1,2) . The Endoc rine Socie ty went on to furth er defin e vitam in D insuf ficie ncy as a level betwe en 21 and 29 ng/mL (2). 1. IOM (Inst itute of Medic ine). 2010. Dieta ry refer ence jennifer es for calci um and D. John tyson [place]: The Natio nal Ac[employer] txes Press . 2. Noemy castillo MF, Yanci ey [place], Latha off-F errar i ESPINAL, et al. Evalu ation , treat ment, and preve ntion of vitam in D defic iency : an Endoc rine Socie ty clini bairon pract ice guide line. JCEM. 2010; 96(7) :1911 -30. Not Available [facility] ([facility]) [address] [place], [address], 08/14/2024 10:08:43 08/14/1908/14/2024 HIV AB/P2 4 AG WITH REFLE X HIV Ab/P24 Ag screen Non Reacti ve non reacti ve HIV-1 /HIV- 2 antib odies and HIV-1 p24 antig en were NOT detec abisai. There is no labor atory evide nce of HIV infec tion. HIV Negat jeffrey Not Available [facility] ([facility]) [address] [facility], [place], [address], 08/14/2024 10:08:43 08/22/19 25 08/22/2024 BASIC METAB OLIC PANEL (8) glucose 113 mg/dL 70-99 above high normal Not Available [facility] ([facility]) [address] [place], [address], 08/22/2024 11:08:19 08/22/19 25 08/22/2024 BASIC METAB OLIC PANEL (8) BUN 12 mg/dL 6-24 normal Not Available [facility] ([facility]) [address] [place], [address], 08/22/2024 11:08:19 08/22/19 25 08/22/2024 BASIC METAB OLIC PANEL (8) creatinine 0.68 mg/dL 0.57-1 .00 normal Not Available [facility] ([facility]) [address] [place], [address], 08/22/2024 11:08:19 08/22/19 25 08/22/2024 BASIC METAB OLIC PANEL (8) eGFR 102 mL/mi n/1.7 3 >59 normal Not Available [facility] ([facility]) [address] [place], [address], 08/22/2024 11:08:19 08/22/19 25 08/22/2024 BASIC METAB OLIC PANEL (8) BUN/creatini ne ratio 18 9-23 normal Not Available [facility] ([facility]) [address] [place], [address], 08/22/2024 11:08:19 08/22/19 25 08/22/2024 BASIC METAB OLIC PANEL (8) sodium 144 mmol/ L 134-14 4 normal Not Available [facility] ([facility]) [address] [facility], [place], [address], 08/22/2024 11:08:19 08/22/19 25 08/22/2024 BASIC METAB OLIC PANEL (8) potassium 3.8 mmol/ L 3.5-5. 2 normal Not Available [facility] ([facility]) [address] [place], [address], 08/22/2024 11:08:19 08/22/19 25 08/22/2024 BASIC METAB OLIC PANEL (8) chloride 101 mmol/ L 96-106 normal Not Available [facility] ([facility]) [address] [place], [address], 08/22/2024 11:08:19 08/22/19 25 08/22/2024 BASIC METAB OLIC PANEL (8) carbon dioxide, total 28 mmol/ L 20-29 normal Not Available [facility] ([facility]) [address] [place], [address], 08/22/2024 11:08:19 08/22/19 25 08/22/2024 BASIC METAB OLIC PANEL (8) calcium 9.2 mg/dL 8.7-10 .2 normal Not Available [facility] ([facility]) [address] [facility], [place], [address], 08/22/2024 11:08:19 08/22/1908/22/2024 HEMOG LOBIN A1C hemoglobin A1C 5.5 % 4.8-5. 6 normal Predi abete s: 5.7 - 6.4 Diabe melissa: >6.4 Glyce edwar contr ol for adult s with diabe melissa: <7.0 Not Available [facility] ([facility]) [address] [facility], [place], [address], 08/22/2024 11:08:19 08/22/1908/22/2024 PTH, INTAC T PTH, intact 23 pg/mL 15-65 normal Not Available [facility] ([facility]) [address] [facility], [place], [address], 08/22/2024 11:08:20 06/29/1906/22/2024 MAMMO , scree allie, bilat eral No observ ation record ed. [facility] ([facility]) [address], [place], [address], 07/04/2024 10:37:48 Result Notes None recorded. Problems Name Problem SNOMED Code Status Onset Date Resolution Date Notes Provider Name and Address Organization Details Recorded Time Essential hypertension 45609180 Active 2024 ABBE Shah [address] [place] [address], [phone], [employer] 12:24:11 Hyperlipidemia 13258455 Active 2024 ABBE Shah [address] [place] [address], [address] 8, [employer] 5 12:24:13 Obstructive sleep apnea syndrome 03213105 Active 2024 ABBE Shah [address] [place] [address], [address] 8, [employer] 5 12:24:16 Bipolar disorder 45133826 Active 2024 Gabriela ABBE Mari [address] [place] [address], [address] 8, [employer] 5 12:24:08 Mild intermittent asthma 829349707 Active 2024 Gabriela ABBE Mari [address] [place] [address], [address] 8, [employer] 5 12:24:19 Ingrowing toenail 791651242 Active 2024 Gabriela Kamaljit [address], [address], [employer] 5 08:20:24 Hypokalemia 36885767 Active 2024 [place] Kamaljit [address], [address], [employer] 5 12:24:03 Problem Notes None recorded. Procedures 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 Date Name Laterality Status Provider Name and Address Organization Details Recorded Time 5 Most Recent Mammogram completed [employer] 08/13/2024 12:53:29 3 Date of Last Pap Smear completed [employer] 06/15/2024 16:37:05 Cataract Surgery completed [employer] 06/15/2024 15:55:11 Tubal Ligation completed [employer] 06/15/2024 15:55:11 Orthopedic Surgery completed [employer] 06/15/2024 15:55:11 Endometrial Ablation completed [employer] 06/15/2024 15:55:11 Cardiac Surgery completed [employer] 06/15/2024 15:55:11 Gallbladder Surgery completed [employer] 06/15/2024 15:55:11 Imaging Results None recorded. Procedure Notes None recorded. Medical Equipment None Reported. Allergies No known drug allergies Medications Name Sig Start Date Stop Date Status Note LastModified by Organization Details LastModified Time methocarbam ol 500 mg tablet 06/12 completed Not Available Not Available Not Available atorvastati n 80 mg tablet active Not Available Not Available Not Available lamotrigine 200 mg tablet active Not Available Not Available Not Available trazodone 50 mg tablet 06/12 completed Not Available Not Available Not Available isosorbide mononitrate ER 30 mg tablet,exte nded release 24 hr active Not Available Not Available Not Available clopidogrel 75 mg tablet TAKE ONE TABLET BY MOUTH ONCE A DAY FOR BLOOD THINNER active Not Available Not Available No t Available tramadol 50 mg tablet active Not Available Not Available No t Available triamcinolo ne acetonide 0.1 % topical cream 06/15 completed Not Available Not Available Not Available bisoprolol fumarate 10 mg tablet TAKE ONE TABLET BY MOUTH ONCE A DAY active Not Available Not Available No t Available potassium chloride ER 20 mEq tablet,exte nded release(par t/cryst) TAKE ONE TABLET BY MOUTH EVERY DAY FOR FIVE DAYS active Not Available Not Available No t Available methocarbam ol 750 mg tablet active Not Available Not Available Not Available hydrocodone 7.5 mg-acetamin ophen 325 mg tablet 08/13 completed Not Available Not Available Not Available cephalexin 500 mg capsule 06/15 completed Not Available Not Available Not Available trazodone 150 mg tablet active Not Available Not Available Not Available buspirone 10 mg tablet active Not Available Not Available Not Available nitroglycer in 0.4 mg sublingual tablet active Not Available Not Available Not Available lisinopril 20 mg-hydrochl orothiazide 25 mg tablet TAKE ONE TABLET BY MOUTH 2 TIMES A DAY FOR BLOOD PRESSURE active Not Available Not Available No t Available montelukast 10 mg tablet TAKE ONE TABLET BY MOUTH ONCE A DAY active Not Available Not Available No t Available hydroxyzine HCl 25 mg tablet active Not Available Not Available Not Available methylpredn isolone 4 mg tablets in a dose pack 06/15 completed Not Available Not Available Not Available escitalopra m 20 mg tablet TAKE ONE TABLET BY MOUTH EVERY MORNING active Not Available Not Available No t Available lurasidone 40 mg tablet active Not Available Not Available Not Available melatonin 10 mg capsule 06/12 completed Not Available Not Available Not Available lurasidone 60 mg tablet 01/21 /2025 completed Not Available Not Available Not Available potassium chloride ER 20 mEq tablet,exte nded release Take 1 tablet every day by oral route for 5 days. 2024 active Not Available Not Available Not Avai lable Anoro Ellipta 62.5 mcg-25 mcg/actuati on powder for inhalation active Not Available Not Available N ot Available melatonin 10 mg sublingual tablet 06/12 completed Not Available Not Available Not Available Trelegy Ellipta 200 mcg-62.5 mcg-25 mcg powder for inhalation active Not Available Not Available N ot Available Vitals Date Recorded Body weight Body temperature Body mass index (BMI) Body height Heart rate Oxygen saturation Oxygen saturation in Arterial blood by Pulse oximetry Systolic blood pressure Diastolic blood pressure Provider Name and Address Organization Details Last Updated DateTime 18626.2 g 98.4 [degF] 41.9 kg/m2 152.4 cm 62 /min 95 % 95 % 92 mm[Hg] 60 mm[Hg] [employer] 16:00:49 Date Recorded Body height Body mass index (BMI) Body weight Oxygen saturation Oxygen saturation in Arterial blood by Pulse oximetry Heart rate Body temperature Systolic blood pressure Diastolic blood pressure Provider Name and Address Organization Details Last Updated DateTime 152.4 cm 42.8 kg/m2 12290.1 7 g 96 % 96 % 62 /min 98.2 [degF] 112 mm[Hg] 72 mm[Hg] [employer] 12:51:15 Social History Question Answer Notes LastModified by Organizat ion Details LastModified Time Tobacco Smoking Status Former Smoker [employer] 06/15/2024 15:55:10 Do You Have An Advance Directive? No Information not available 06/15/2024 Is Your Home Air Conditioned? Yes Information not available 06/15/2024 If You Are , What Was Your Level Of Alcohol Consumption Prior To ? None Information not available 06/15/2024 Do You Wear A Helmet When Biking? No Information not available 06/15/2024 Are You Blind Or Do You Have Difficulty Seeing? No Information not available 06/15/2024 What Is Your Level Of Caffeine Consumption? Heavy Information not available 06/15/2024 What Type Of Swimming Pool Service Technician Do You Use? None Information not available 06/15/2024 Have You Been To An Area Known To Be High Risk For COVID-19? No Information not available 06/15/2024 Are You Deaf Or Do You Have Serious Difficulty Hearing? No Information not available 06/15/2024 What Type Of Diet Are You Following? REGULAR Information not available 06/15/2024 Which Illicit Or Recreational Drugs Have You Used? [place] Information not available 06/15/2024 How Many Days Of Moderate To Strenuous Exercise, Like A Brisk Walk, Did You Do In The Last 7 Days? 0 Information not available 06/15/2024 Have There Been Any Changes To Your Family Or Social Situation? No Information no t available 06/15/2024 When Did You Quit Smoking? 1-5yearssincelast cigarette Information not available 06/15/2024 Are There Any Guns Present In Your Home? No Information not available 06/15/2024 Which Of Your Hands Is Dominant? Right Information not available 06/15/2024 What Is Your Home Situation? Other Information not available 06/15/2024 How Many Years Have You Used Illicit Or Recreational Drugs? 38 Information not available 06/15/2024 Do You Have A Medical Power Of Patient Insurance Clerk? No Information not available 06/15/2024 What Was The Date Of Your Most Recent Tobacco Screening? 08/13/2024 Information not available 08/13/2024 Do You Have Any Pets? Yes Information not available 06/15/2024 What Is Your Relationship Status? Information not available 06/15/2024 Have You Repeated Any Grades? No Information not available 06/15/2024 Do You Use Your Seat Belt Or Car Seat Routinely? Yes Information not available 06/15/2024 Are You Sexually Active? No Information not available 06/15/2024 Do You Have Any Siblings? 2 Information not available 06/15/2024 Do You Have Smoke And Carbon Monoxide Detectors In Your Home? Yes Information not available 06/15/2024 At What Age Did You Start Smoking Tobacco? 15 Information not available 06/15/2024 Are You Passively Exposed To Smoke? No Information no t available 06/15/2024 Are There Any Smokers In Your House? No Information not available 06/15/2024 How Much Tobacco Do You Smoke? No Information not available 06/15/2024 Do You Participate In Social Media? Yes Information not available 06/15/2024 Do You Use Sunscreen Routinely? Yes Information not available 06/15/2024 Has Tobacco Cessation Counseling Been Provided? Yes Information not available 06/15/2024 On What Date Was Tobacco Cessation Counseling Provided? 08/13/2024 Information not available 08/13/2024 How Many Years Have You Smoked Tobacco? 44 Information not available 06/15/2024 Have You Recently Traveled Abroad? No Information not available 06/15/2024 Do You Have Difficulty Walking Or Climbing Stairs? Yes Information not available 06/15/2024 Are You Currently In School? No Information not available 06/15/2024 What Contraceptive Method Was Reported At Start Of This Visit? Female Sterilization Information not available 08/13/2024 Do You Have Any Dietary Restrictions? No Information not available 06/15/2024 Sex: Female Functional Status Question Answer Note LastModified by Organizat ion Details LastModified Time Do you use any illicit or recreational drugs? Yes Information not available 06/15/2024 Do you or have you ever used any other forms of tobacco or nicotine? Yes Information not available 06/15/2024 What is your level of alcohol consumption? None Information not available 06/15/2024 Do you or have you ever used smokeless tobacco? Never used smokeless tobacco Information not available 06/15/2024 Are you currently employed? No Information not available 06/15/2024 Do you have transportation difficulties? No Information not available 06/15/2024 Are you able to walk? YESASSIST Information not available 06/15/2024 Do you have difficulty doing errands alone? No Information not available 06/15/2024 Are you able to care for yourself? Yes Information n ot available 06/15/2024 Do you have difficulty dressing or bathing? No Information not available 06/15/2024 Do you or have you ever used e-cigarettes or vape? Current user of electronic cigarettes Information not available 06/15/2024 What is your exercise level? Occasional Information not available 06/15/2024 Mental Status Question Answer Note LastModified by Organizat ion Details LastModified Time Do you feel stressed (tense, restless, nervous, or anxious, or unable to sleep at night)? [id number] Information not available 06/15/2024 Do you have difficulty concentrating, remembering or making decisions? No Information no t available 06/15/2024 Are you or have you been involved with bullying? Yes Information not available 06/15/2024 Family History Relationship Description Onset Age of this Age Resolved Age Notes LastModified by Organization Details LastModified Time Brother Hypertensive disorder Not available 2024 15:55:08 Brother Heart disease Not available 2024 15:55:08 Father Hypercholest erolemia Not available 2024 15:55:08 Father Malignant neoplasm of lung Not available 2024 15:55:08 Father Hypertensive disorder Not available 2024 15:55:08 Father Heart disease Not available 2024 15:55:08 Paternal Grandmother Hypercholest erolemia Not available 2024 15:55:08 Paternal Grandmother Malignant neoplasm of lung Not available 2024 15:55:08 Paternal Grandmother Arthritis Not available 05/24 15:55:08 Paternal Grandmother Osteoporosis Not available 0 06/15/2024 15:55:08 Mother Arthritis Not available 06/15/2024 15:55:08 Mother Hypertensive disorder Not available 2024 15:55:08 Mother Heart disease Not available 2024 15:55:08 Mother Osteoporosis Not availab le 06/15/2024 15:55:08 Unspecified Relation Hypercholest erolemia Not available 2024 15:55:09 Unspecified Relation Asthma Not available 15:55:09 Unspecified Relation Anxiety disorder Not available 2024 15:55:09 Unspecified Relation Alzheimer's disease Not available 2024 15:55:09 Unspecified Relation Depressive disorder Not available 2024 15:55:09 Unspecified Relation Malignant neoplasm of lung Not available 2024 15:55:09 Unspecified Relation Arthritis Not available 025 15:55:09 Unspecified Relation Hypertensive disorder Not available 2024 15:55:09 Unspecified Relation Heart disease Not available 2024 15:55:09 Maternal Grandfather Hypercholest erolemia Not available 2024 15:55:09 Maternal Grandfather Arthritis Not available 05/24 15:55:09 Maternal Grandfather Hypertensive disorder Not available 2024 15:55:09 Maternal Grandfather Heart disease Not available 2024 15:55:09 Paternal Grandfather Malignant neoplasm of lung Not available 2024 15:55:09 Paternal Grandfather Arthritis Not available 05/24 15:55:09 Medical History Condition Response Allergies (Food, seasonal, environmental ) Y Depression Y Lung Disease Y Anxiety Disorder Y Obesity Y Arthritis Y Acid Reflux (GERD) Y Asthma Y High Cholesterol Y Heart Disease Y Hypertension Y Gynecological History Statement/Question Response Abnormal Pap N If Post Menopausal, Age at Menopause 41 Menses Monthly N Date of Last Pap Smear 09/27/2022 Current Control Method Tubal Ligat ion Most Recent Mammogram 06/22/2024 Age at First Child 21 Obstetrics History GPAL:G 2 P 2 0 0 2 Type Value Multiple Births 0 Full Term 2 Induced 0 Spontaneous 0 Premature 0 Living 2 Ectopics 0 Total 2 Immunizations Vaccine Type Date Status Note Provider Nam e and Address Organization Details Recorded Time Pneumococcal conjugate PCV20, polysaccharide CPP095 conjugate, adjuvant, PF 4 completed Katiana Vice null, [employer] 06/15/2024 15:55:20 pneumococcal polysaccharide PPV23 5 completed Katiana Vice null, [employer] 06/15/2024 15:55:20 influenza, unspecified formulation 9 completed Katiana Vice null, [employer] 06/15/2024 15:55:20 Tdap 4 completed Katiana Vice null, [employer] 06/15/2024 15:55:21 Hib (PRP-OMP) 5 completed Katiana Vice null, [employer] 06/15/2024 15:55:21 Hib (PRP-OMP) 5 completed Katiana Vice null, [employer] 06/15/2024 15:55:21 meningococcal MCV4P 5 completed Katiana Vice null, [employer] 06/15/2024 15:55:21 Influenza, split virus, quadrivalent, PF 8 completed Katiana Vice null, [employer] 06/15/2024 15:55:21 Influenza, split virus, quadrivalent, PF 7 completed Katiana Vice null, [employer] 06/15/2024 15:55:21 Influenza, split virus, quadrivalent, PF 0 completed Katiana Vice null, [employer] 06/15/2024 15:55:21 Influenza, split virus, quadrivalent, PF 6 completed Katiana Vice null, [employer] 06/15/2024 15:55:21 Influenza, split virus, quadrivalent, PF 3 completed Katiana Vice null, [employer] 06/15/2024 15:55:21 Influenza, split virus, quadrivalent, PF 2 completed Katiana Vice null, [employer] 06/15/2024 15:55:21 Influenza, split virus, quadrivalent, PF 1 completed Katiana Vice null, [employer] [facility] 06/15/2024 15:55:21 Past Encounters Encounter ID Performer Location Encounter Start Date Encounter Closed Date Diagnosis/Indication Diagnosis SNOMED-CT Code Diagnosis ICD10 Code Diagnosis Note [id number] Gabriela Mari [address] [address] 06/15/2024 15:39:09 06/15/2024 16:21:02 Screening mammography 67908062 Z12.31 Body mass index 40+ - severely obese 849720339 Z68.41 Essential hypertension 44684081 I10 Hyperlipidemia 80521743 E78.5 Obstructiv e sleep apnea syndrome 54051523 G47.33 Bipolar disorder 5424895 4 F31.9 Mild inter mittent asthma 352024607 J45.20 [id number] ABBE Shah [facility] [address] [place] [address] 08/13/2024 12:41:16 08/13/2024 14:47:18 Hyperlipidemia 19815498 E78.5 Essential hypertension 28037855 I10 HIV screening 939178917 Z11.4 Hepatitis C screening 41 0290295 Z11.59 Fatigue 53712083 R53.83 Health Concerns Section Related Observation LastModified by Organization Detai ls LastModified Time None Recorded Concern Status LastModified by Organization Details LastModified Time None Recorded Advance Directives Directive N: Payers Insurance Date Sequence Insurance Name Policy Number Policy Lai Covered Member ID Lai Member ID Guarantor Name 08/21/2024 1 [employer] (MEDICARE REPLACEMENT/A DVANTAGE - PPO) [id number] Mei Funk [id number] Mei Blessing 06/13/2024 1 [place] Mei Funk [id number] Mei Funk 08/11/2024 [place] [facility] [id number] Mei Funk [id number] Mei Funk 06/13/2024 2 [place]MEDICARE REPLACEMENT HMO) [id number] Mei Funk [id number] Mei Funk 06/13/2024 1 [facility] (MEDICAID HMO) Mei Funk [id number] Mei Funk Notes Date Note Type Note Provider Name and Address Organization Details Recorded Time 06/15/2024 text/html Patient presents to establish care.History of HLD, HTN, anxiety, depression, bipolar disorder, asthma.Recently started on B12 and iron for anemia. ABBE Shah [address] [place], [address], [employer] 06/15/2024 17:32:18 08/13/2024 text/html Patient presents for followup.History of HLD, HTN. Has been diagnosed with B12 deficiency, iron deficiency anemia. ABBE Shah [address] [place], [address], [employer] 08/14/2024 12:10:33 OBGyn Episode No OBEpisode recorded.
--- OUTSIDE RECORDS SUMMARY | 2024-10-29 10:32 | XMS_ITS | Encounter Summary ---
Author Organization Healthcare Address [address] [place] [address] Care Team Providers Care Staff Interpreter Name Role Phone Gabriela Mari Primary Care Provider [phone] Reason for Referral * Consultation (Routine) - Closed Specialty Diagnoses / Procedures Referred By Contac t Referred To Contact Sleep Medicine Diagnoses CEZAR (obstructive sleep apnea) John Pickering MD [address], [address] [address] Phone: tel: fax: [facility] [address] [place] [address] Phone: tel: fax: Referral ID Status Reason Start Date Expiration Date V isits Requested Visits Authorized Closed Specialty Services Required 03/30/2023 09/28/2024 1 1 Encounter Details Date Type Department Care Team (Late st Contact Info) Description 03/30/2023 Community Orders Community Practice [address] [place] [address] John Pickering MD [address] [facility], [address] [address] CEZAR (obstructive sleep apnea) (Primary Dx) Social History Tobacco Use Types Packs/Day Years [...] Description 11/06/2024 9:00 AM EDT Office Visit [facility] [address] [place] [address] Michael Paredes DO [address] [place] [address] Scheduled Referrals Name Type Priority Associated Diagnoses Order Schedule Ambulatory referral to Sleep Medicine Outpatient Referral Routine CEZAR (obstructive sleep apnea) Expected: 03/30/2023 (Approximate), Expires: 09/27/2024 documented as of this encounter Visit Diagnoses Diagnosis CEZAR (obstructive sleep apnea)- Primary Obstructive sleep apnea (adult) (pediatric) documented in this encounter Care Teams Staff Interpreter Relationship Specialty Start Date End Date Gabriela Mari PA [address] [place] [address] PCP - General 09/29/22 documented as of this encounter
[2024-10-29 10:44] VITALS: BP 119/63; PULSE 61; RESP 12; O2SAT 96; BMI 42.2
--- NOTE | 2024-10-29 11:02 | EXP.PAIN.SOA ---
[facility] Disclaimer: The information contained in this section may have been updated after the patient was seen, as this information can be updated by other users. Medical History Edema Pulmonary emphysema History of COPD Smoking greater than 30 pack years Coronary artery abnormality Elevated liver enzymes Abnormal liver function tests Morbid obesity with BMI of 40.0-44.9, adult Abnormal electrocardiogram [ECG] [EKG] Former smoker Family history of ischemic heart disease before age 50 Dyspnea Typical angina Coronary artery calcification seen on CT scan Coronary artery disease Back pain, chronic Neck pain, chronic COPD (chronic obstructive pulmonary disease) Bipolar 1 disorder Insomnia Depression Anxiety Hyperlipidemia Hypertension 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 H/O lateral meniscus repair of left knee H/O lateral meniscus repair of right knee History of bladder surgery H/O colonoscopy H/O splenectomy Tubal ligation status History of appendectomy History of cholecystectomy Family History Other No significant family history Social History Smoking Status: Current every day smoker tobacco type: e-cigarettes alcohol intake: never substance use type: denies use current occupational status: other Travel in the last 8 weeks?: None PM Subjective & Objective Subjective Subjective:: Patient is a pleasant 59-year-old female who presents today for follow-up of her cervical RFA left-sided on 10/02/2024 of C5-C6 and C6-7. Today she rates her pain a 2 out of 10. Patient states that this procedure gave fairly immediate results with at least 60% or more. Patient states that she has felt like she has had better movement and range of motion. Patient does make mention that she does have a little bit of soreness up higher more into her hairline along the left side but that it is manageable. Patient does feel like the right side of her neck is still doing okay overall even though she has not had the ablation on that side. Patient denies any other changes. Her Jose has been reviewed and is appropriate. Review of Systems: General: No recent weight changes, no fever, no sleep disturbances Respiratory: No cough, no shortness of air, no recurring pulmonary infections Cardiovascular/peripheral vascular: No chest pain, no palpitations, no edema, no shortness of breath Gastrointestinal: No new onset incontinence, normal bowel movements reported Genitourinary: No new onset incontinence Musculoskeletal: Neck pain Psychiatric: [Normal mood/affect] Neurological: [Denies weakness in extremities], [denies balance issues] Pain at rest (0-10 scale): 2 Objective Objective:: Physical Exam: General: Alert and oriented x3, no acute distress, pleasant and cooperative Lungs: Respirations even and unlabored, symmetrical chest expansion Eyes: PERRL Musculoskeletal: Flexion and extension of cervical [spine] somewhat guarded secondary to pain, point tenderness along right cervical paraspinous muscles Neurological: Speech clear, no gross sensory deficit Has patient had previous pain injection?: Yes Percent improvement in pain since last injection: At least 60% Conservative treatment options previously tried: Home exercise plan Length of treatment: Longer than 12 weeks Meds Home Medications and Allergies Home Medications ?Medication ?Instructions ?Recorded ?Confirmed ?Type buspirone 10 mg tablet 10 mg PO TID MOOD 09/02/22 10/29/24 History lamotrigine 200 mg tablet 200 mg PO DIRECTED SEIZURES 09/02/22 10/29/24 History aspirin 81 mg chewable tablet 81 mg PO DAILY Blood Thinner 12/23/22 10/29/24 History lurasidone 40 mg tablet (Latuda) 40 mg PO HS 11/10/23 10/29/24 History nitroglycerin 0.4 mg sublingual 0.4 mg sublingual Q5M PRN chest 03/29/24 10/29/24 Rx tablet pain #25 tabs clopidogrel 75 mg tablet (Plavix) 75 mg PO DAILY Blood Thinner #90 04/25/24 10/29/24 Rx tabs montelukast 10 mg tablet 10 mg PO DAILY #90 tabs 05/25/24 10/29/24 Rx (Singulair) bisoprolol fumarate 10 mg tablet See Rx Instructions .Route 06/01/24 10/29/24 Rx .COMPLEX #90 tabs isosorbide mononitrate 30 mg See Rx Instructions .Route 06/01/24 10/29/24 Rx tablet,extended release 24 hr .COMPLEX #90 tabs mupirocin 2 % topical ointment 1 applic topical BID infection 14 06/25/24 10/29/24 Rx days #15 grams methocarbamol 750 mg tablet 750 mg PO TID #90 tabs 07/18/24 10/29/24 Rx tramadol 50 mg tablet 50 mg PO BID PRN pain #60 tabs 07/18/24 10/29/24 Rx lisinopril 20 See Rx Instructions .Route 08/30/24 10/29/24 Rx mg-hydrochlorothiazide 25 mg tablet .COMPLEX #180 tabs albuterol sulfate 90 mcg/actuation 2 inh inhalation Q6H PRN shortness 09/19/24 10/29/24 Rx breath activated powder inhaler of breath or wheezing #1 ea (ProAir RespiClick) albuterol sulfate 90 mcg/actuation 2 puff inhalation Q6H PRN . 09/26/24 10/29/24 History aerosol inhaler escitalopram oxalate 20 mg tablet 20 mg PO DAILY 09/26/24 10/29/24 History atorvastatin 80 mg tablet 80 mg PO DAILY Cholesterol #90 tabs 10/12/24 10/29/24 Rx fluticasone fur. 200 mcg-umeclid 1 inh inhalation DAILY 90 days #90 10/12/24 10/29/24 Rx 62.5 mcg-vilant 25 mcg ea inhalat.powder (Trelegy Ellipta) hydroxyzine HCl 25 mg tablet 25 mg PO TID 10/12/24 10/29/24 History trazodone 150 mg tablet 150 mg PO DAILY 10/12/24 10/29/24 History furosemide 20 mg tablet (Lasix) See Rx Instructions PO DAILY PRN 10/25/24 10/29/24 Rx edema #30 tabs New Prescriptions to Start Prescriptions: Allergies Allergy/AdvReac Type Severity Reaction Status Date / Time No Known Allergies Allergy Verified 10/25/24 13:31 Assessment and Plan *Assessment and plan (1) Facet arthropathy, cervical: Status: Acute Category: Medical Code(s): M47.812 - Spondylosis without myelopathy or radiculopathy, cervical region Plan Patient has had significant improvement following her left-sided radiofrequency ablation of her cervical spine C5-C6 and C6-C7 and does not require any additional injection therapy at this time. I will order the patient a compounded cream. I did certified credit counselor her that I will give her a 6-week follow-up however if she does start to have increased pain along the right side to please call our office and get in sooner so we can get her scheduled for the injection and RFA they are on the right side. Patient acknowledges understanding agrees with this plan of care. We will see the patient back in 6 weeks. Patient has been instructed to contact the clinic with any concerns before the next appointment. Dr. Davis has reviewed this note and agrees with this plan of care. This note was dictated using voice recognition software and make contain errors or omissions. All injections are used with Lidocaine, Bupivacaine and dexamethasone. Occasionally urine drug screen is needed to verify patient's compliance with our office pain contract. This is ordered based off specific treatments related to chronic pain with the potential to abuse certain medications.
--- OUTSIDE RECORDS SUMMARY | 2024-10-29 11:31 | XMS_ITS | CCD ---
Author Organization Unknown Care Team Providers Care Area Captain Name Role Phone Unavailable Primary Care Provider Unavailabl e Unavailable Chronic Care Management Unavaila ble Summary Purpose DataExchange Insurance Providers Payer name Policy type / Coverage type Covered alliance party ID Effective Begin Date Effective End Date [facility] [id number] Unknown Unknown Family History Family History data not found Medication Administered No Medication Administered data Reason For Visit No Reason For Visit data Medical Equipment No Medical Equipment data Advance Directives No Advance Directive data
== END 2024-10-29 23:59 | disposition home or self-care (01) ==
LOC: SC.PAIN 10:28
PROVIDERS: PCP Physician Assistant; Visit Provider Nurse Practitioner Family
DX: M47.812 Spondylosis without myelopathy or radiculopathy, cervical region (principal); Z98.890 Other specified postprocedural states
CPT/HCPCS: 99212; G0463

== ENCOUNTER 2024-12-10 09:58 | Outpatient (POV) | payer MEDICARE, MEDICAID, SELFPAY ==
--- OUTSIDE RECORDS SUMMARY | 2024-11-06 09:00 | XMS_ITS | Encounter Summary ---
Author Organization Healthcare Address [address] [place] [address] Care Team Providers Care Information Analyst Name Role Phone Gabriela Mari Primary Care Provider [phone] Reason for Referral * Consultation (Routine) - Authorized Specialty Diagnoses / Procedures Referred By Conttania t Referred To Contact Diagnoses CEZAR (obstructive sleep apnea) Michael Paredes DO [address] [place] [address] Phone: tel: fax: Referral ID Status Reason Start Date Expiration Date V isits Requested Visits Authorized [id number] Authorized 11/06/2024 05/08/2026 1 1 Reason for Visit * Reason Comments Follow-up Encounter Details Date Type Department Care Team (Late st Contact Info) Description 11/06/2024 9:00 AM EDT Office Visit [facility] Sleep Disorder Center [address] [place] [address] Michael Paredes DO [address] [place] [address] CEZAR (obstructive sleep apnea) (Primary Dx) Social History Tobacco Use Types Packs/Day Years Used Date Smoking Tobacco: Every Day Pipe Passive Smoke Exposure: Past Comments:Ise to smoke 1 pk p er day until 07-06-2022 then went to vaping Alcohol Use Standard Drinks/Week Comments Not Currently 0 (1 standard drink = 0.6 oz pur e alcohol) Comments Unknown Sex and Gender Information Value Date Recorded Sex Assigned at Not on file Legal Sex Female 10:49 AM EDT Gender Identity Not on file Sexual Orientation Not on file documented as of this encounter Last Filed Vital Signs Vital Sign Reading Time Taken Comments Blood Pressure 127/78 11/06/2024 8:30 AM EDT Pulse 61 11/06/2024 8:30 AM EDT Temperature - - Respiratory Rate - - Oxygen Saturation 95% 11/06/2024 8:30 AM EDT Inhaled Oxygen Concentration - - Weight 97.8 kg (215 lb 9.8 oz) 11/06/2024 8:30 A M EDT Height 152.4 cm (5') 11/06/2024 8:30 AM EDT Body Mass Index 42.11 11/06/2024 8:30 AM EDT documented in this encounter Miscellaneous Notes * Progress Notes - Michael Paredes, - 11/06/2024 9:00 AM EDT Subjective Dear Gabriela Sanders, PA, I had the pleasure of seeing Mei Funk at the [facility] with/for Follow-up. Visit Type: Established patient Chief complaint: CPAP follow up HPI: PAP Data Card Download Respironics: Data card download: 09/29/24-10/28/24 Total usage 100% >4 hour compliance 100% Average use (days used) 6 hours 19 min Setting-14 cm H2O () Leak is high at 31 L/min Total residual AHI 11.2 (central index - 5.4) DME - [employer] Mask type -nasal Age of mask- new Leak noted- noted, with dry mouth Using distilled water in humidifier. The patient admits benefit from current CPAP pressure use and is happy with the current pressures. Past Medical History[1] 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[2] Family History[3] Social History Tobacco Use Smoking status: Every Day Types: Pipe Passive exposure: Past Smokeless tobacco: Not on file Tobacco comments: Ise to smoke 1 pk per day until 07-06-2022 then went to vaping Substance Use Topics Alcohol use: Not Currently Current Medications[4] All medications have been reviewed today. Allergies[5] Immunization History Administered Date(s) Administered Hib (PRP-OMP) 01/08/2015, 01/23/2015 Influenza, Unspecified 03/02/2019 Influenza, injectable, quadrivalent, preservative free 03/10/2016, 02/18/2017, 02/13/2018, 03/04/2020, 05/19/2021, 05/04/2022, 03/30/2023 Meningococcal MCV4P 01/08/2015 Pneumococcal 20-brenda Conj Vaccine 06/02/2023 Pneumococcal Polysaccharide PPV23 01/06/2015 Tdap 06/25/2023 The following portions of the chart were reviewed this encounter and updated as appropriate: Objective Vitals: 11/06/24 0830 BP: 127/78 Pulse: 61 SpO2: 95% Height and Weight Height: 152.4 cm (5') BMI (Calculated): 0 Weight in (lb) to have BMI = 25: 127.7 ROS: 14 point ROS negative, unless specified per HPI. Complete PE Constitutional: No acute distress. Neck: supple, symmetric, trachea at midline. Pulmonary: Breathing equal and symmetrical. Lungs were clear to auscultation and no wheezing. Cardiovascular: No murmurs. Normal rate and rhythm, no edema in the lower extremities. Skin: Digits and nails were normal without clubbing or cyanosis. Neurologic: grossly intact, extraocular muscles intact. Psychiatric: alert and oriented to place, person, and time. Judgement and insight normal. Assessment: CEZAR PLMS Plan/Recommendations: - obs index 5.8, central index 5.4 - for now - keep CPAP 14 - central index could be due to increased arousal index -overall AHI increased due to mask leak - change to full face mask - JADA - follow up 6 months Counseling Documentation: The patient was counseled regarding risks and benefit of treatment options. Reviewed data card download and the importance of compliance with therapy. Education provided was verbal counseling.Additional time was spent in care coordination including medical record review. The total time of encounterwas 20 minutes. . -The use of CPAP is a fully effective treatment option for obstructive sleep apnea. This can only be an effective treatment if used when sleeping, even for naps. - Reviewed at length with the patient, the dangers of drowsy driving. Explained to the patient to never drive if drowsy. The patient is to let family or friends know if they are sleepy. Pull off the road to a safe location, until help arrives. [1] Past Medical History: Diagnosis Date Anemia 2022 Asthma 2023 COPD (chronic obstructive pulmonary disease) ([facility]) 2023 Coronary artery disease GERD (gastroesophageal reflux disease) Hypertension Snoring [2] No past surgical history on file. [3] Family History Problem Relation Name Age of Onset Heart disease Mother Emily York COPD Father Nano Duncan Heart disease Father Nano Duncan Hypertension Father Nano Duncan Stroke Father Nano Duncan Heart attack Father Nano Duncan Diabetes Brother Kt York [4] Current Outpatient Medications Medication Sig Dispense Refill Albuterol Sulfate 108 (90 Base) MCG/ACT aerosol powder As Directed ASPIRIN 81 MG chewable tablet 1 tablet (81 mg). atorvastatin (Lipitor) 80 MG tablet 1 tablet (80 mg). bisoprolol (Zebeta) 10 MG tablet 1 tablet (10 mg). busPIRone (Buspar) 10 MG tablet 1 tablet (10 mg). cephalexin (Keflex) 500 MG capsule clopidogrel (Plavix) 75 MG tablet 1 tablet (75 mg). CRANBERRY PO Take 300 mg by mouth 1 (one) time each day. escitalopram (Lexapro) 20 MG tablet 1 tablet (20 mg). esomeprazole (NexIUM) [address] capsule 1 capsule (20 mg). furosemide (Lasix) 20 MG tablet TAKE 1 TO 2 TABLETS BY MOUTH ONCE A DAY NEEDED FOR EDEMA hydrOXYzine HCl (Atarax) 25 MG tablet 1 tablet (25 mg). IRON, FERROUS GLUCONATE, PO Take 1 tablet by mouth 2 (two) times a week. isosorbide mononitrate ER (Imdur) 30 MG 24 hr tablet 1 tablet (30 mg). lamoTRIgine (LaMICtal) 200 MG tablet 1 tablet (200 mg). lisinopril-hydroCHLOROthiazide 20-25 MG tablet 1 tablet. lurasidone (Latuda) 40 MG tablet methocarbamol (Robaxin) 750 MG tablet 1 tablet (750 mg). montelukast (Singulair) 10 MG tablet nitroglycerin (Nitrostat) 0.4 MG SL tablet 1 tablet (0.4 mg). potassium chloride CR (Klor-Con M20) 20 MEQ ER tablet take one tablet by mouth every day for five days traMADol (Ultram) 50 MG tablet 1 tablet (50 mg). traZODone (Desyrel) 150 MG tablet Trelegy Ellipta 200-62.5-25 MCG/ACT aerosol powder triamcinolone (Kenalog) 0.1 % cream Umeclidinium-Vilanterol 62.5-25 MCG/ACT aerosol powder .COMPLEX VITAMIN D, CHOLECALCIFEROL, PO Take 5,000 Units by mouth 1 (one) time each day. Lurasidone HCl 60 MG tablet (Patient not taking: Reported on 05/08/2024) multivitamin with minerals (Cerovite) 18-400 mg-mcg tablet tablet Take by mouth. No current facility-administered medications for this visit. [5] Allergies Allergen Reactions Onion Swelling Molds & Smuts Unknown - Patient states they do not know rxn details documented in this encounter Plan of Treatment Upcoming Encounters Date Type Department Care Team (Late st Contact Info) Description 05/08/2025 10:40 AM EST Office Visit [facility] Sleep Disorder Center [address] [place] [address] Eva Escoto APRN [address] [place] [address] Scheduled Referrals Name Type Priority Associated Diagnoses Orde r Schedule Follow Up Sleep Medicine Outpatient Referral Routine CEZAR (obstructive sleep apnea) Expected: 05/08/2025, Expires: 05/10/2026 documented as of this encounter Visit Diagnoses Diagnosis CEZAR (obstructive sleep apnea)- Primary Obstructive sleep apnea (adult) (pediatric) documented in this encounter Additional Health Concerns Assessment Noted Time A fall risk assessment has been complete d for the patient 11/06/2024 8:32 AM EDT A Body Mass Index follow-up plan has been documented for the patient 11/06/2024 5:02 PM EDT documented as of this encounter Care Teams Information Analyst Relationship Specialty Start Date End Date Gabriela Mari PA [address] [place] [address] PCP - General 09/29/22 documented as of this encounter
--- OUTSIDE RECORDS SUMMARY | 2024-12-10 10:05 | XMS_ITS | Clinical Summary ---
Author Organization [facility] Address [address] [place] [address] Care Team Providers Care Store Team Leader Name Role Phone Arielle Mariie Walter MCADAMS Primary Care Provider [phone] Allergies Active Allergy Reactions Criticality Noted Date [...] lurasidone (Latuda) 40 MG tablet 4 Active furosemide (Lasix) 20 MG tablet TAKE 1 TO 2 TABLETS BY MOUTH ONCE A DAY NEEDED FOR EDEMA 5 Active potassium chloride CR (Klor-Con M20) 20 MEQ ER tablet take one tablet by mouth every day for five days 5 Active Active Problems Problem Noted Date Diagnosed Date CEZAR (obstructive sleep apnea) 07/04/2023 Encounters Date Type Department Care Team Description 11/06/2024 9:00 AM EDT Office Visit [facility] Sleep Disorder Center [facility] [address] [place] [address] Michael Paredes DO CEZAR (obstructive sleep apnea) (Primary Dx) 11/06/2024 Travel 11/05/2024 Travel from Last 3 Months Immunizations Immunization Administration Dates Next Due Hib [...] Hypertension Father Nano Duncan Stroke Father Nano uDncan Heart disease Mother Emily York Relation Name [...] Mass Index 42.11 11/06/2024 8:30 AM EDT Plan of Treatment Upcoming Encounters Date Type Department Care Team (Late st Contact Info) Description 05/08/2025 10:40 AM EST Office Visit [facility] [address] [place] [address] Eva Escoto, [employer] [address] [place] [address] Health Maintenance Due Date Last Done Comments [facility]-Depression Screening 1967 [facility]-HIV Screening 1967 [facility]-Hepatitis C Screening 1967 [facility]-Medicare Annual Wellness (AWV) 1967 [facility]-Infant/Child/Adol SDOH Screenings 1967 [facility]- SDOH Screenings 1985 [facility]-Adult SDOH Screenings 1985 [facility]-Hepatitis B Vaccines (1 of 3 - 19+ 3-dose series) 1986 [facility]-HPV/Cotest 1997 CT Colonography 01/30/2012 Colonoscopy 01/30/2012 FIT 01/30/2012 FOBT 01/30/2012 Sigmoidoscopy 01/30/2012 [facility]-Zoster Vaccines (1 of 2) 2017 [facility]-Breast Cancer Screening 09/25/2020 05/0 10/2018, 09/25/2018, 09/23/2017, Additional history exists [facility]-Cervical Cancer Screening 05/03/2021 [facility]-Pap Smear 05/03/2021 05/03/2018 [id number] Vaccine ( season) 2024 [facility]-Influenza Vaccine (#1) 01/21/202503/30, 05/04/2022, 05/19/2021, Additional history exists FIT-DNA 12/07/2025 12/07/2022 [facility]-Colorectal Cancer Screening 12/07/2025 [facility]-DTaP,Tdap,and Td Vaccines (2 - Td or Tdap) 06/25/2033 06/25/2023 [facility]-HIB Vaccines Aged Out 01/23/2015, 01/08/2015 N o longer eligible based on patient's age to complete this topic [facility]-Pneumococcal Vaccine: 50+ Years Completed 06/02/2023, 01/06/2015 [facility]-Obesity Intervention Completed 06/17/2 025, 05/08/2024, 11/07/2023, Additional history exists HPV Vaccines Aged Out [...] patient's age to complete this topic Insurance [facility] MEDICAID DENTAL AET MEDICARE Care Teams Store Team Leader Relationship Specialty Start Date End Date Gabriela Mari PA [address] [place] [address] PCP - General 09/29/22
--- OUTSIDE RECORDS SUMMARY | 2024-12-10 10:05 | XMS_ITS | Data Portability ---
Author Organization [employer] [place] - MSE Address [address] [place] [address] Assessment No assessment recorded. Plan of Treatment Reminders Order Date Submit Date Provider Last Modified By Organization Details Last Modified Time Details Appointments None recorded. Lab CMP, serum or plasma 2024 025 [facility], [address] [place], [address], 5 10:08:40 CBC w/ auto diff 2024 025 [facility] [address] [place], [address], 5 10:08:40 vitamin D, 25-hydroxy, total, serum 2024 025 [facility], [address] [place], [address], 5 10:08:43 TSH, ultra-sensi tive, serum 2024 025 [facility] [address] [place], [address], 5 10:08:42 Hepatitis C IgG Ab, qual, serum 2024 025 [facility], [address] [place], [address], 5 10:08:42 lipid panel, serum 2024 025 [facility] [address] [facility], [place], [address], 10:08:41 cobalamin and folate panel, serum 2024 025 RAM[facility]), [address], [place], [address], 10:08:41 iron + TIBC + ferritin, serum 2024 025 RAM[facility]), [address], [place], [address], 10:08:39 HIV 1 + 2, meaningful use set 2024 025 [facility] ([place]), [address] [facility], [place], [address], 10:08:43 Referral None recorded. Procedures None recorded. Surgeries None recorded. Imaging MAMMO, screening, bilateral 2024 025 [facility] ([facility]), [address], [place], [address], 11:29:02 Medication Orders None recorded. Patient TargetsNo targets recorded. Patient Instructions Encounter Date Encounter Id Patient Instructions Last Modified By Organization Details Last Modified Time 06/15/2024 [id number] mammogram: about this test [email or web address] Not available 06/15/2024 16:21:13 high cholesterol : care instructions [email or web address] Not available 06/15/2024 17:32:15 bipolar disorder : care instructions [email or web address] Not available 06/15/2024 17:32:15 learning about mood disorders [email or web address] Not available 06/15/2024 17:32:15 body mass index: care instructions [email or web address] Not available 06/15/2024 17:32:15 learning about healthy weight [email or web address] Not available 06/15/2024 17:32:15 sleep apnea: car e instructions [email or web address] Not available 06/15/2024 17:32:15 high blood pressure: care instructions [email or web address] Not available 06/15/2024 17:32:15 learning about high blood pressure [email or web address] Not available 06/15/2024 17:32:15 08/13/2024 [id number] high blood pressure: care instructions Not available 08/13/2024 13:32:02 learning about high blood pressure Not available 08/13/2024 13:32:02 high cholesterol : care instructions [email or web address] Not available 08/13/2024 13:32:02 HIV testing: car e instructions [email or web address] Not available 08/13/2024 13:32:02 Reason for Referral None Reported. Results Created Date Observation Date Name Description Value Unit Range Abnormal Flag Note LastModifiedBy Organization Detail LastModifiedTime 08/14/1908/14/2024 FE+TI BC+FE R iron bind.cap.(TI BC) 301 ug/dL 250-45 0 normal Not Available [facility] ([facility]) [address] [place], [address], 08/14/2024 10:08:39 08/14/1908/14/2024 FE+TI BC+FE R UIBC 253 ug/dL 131-42 5 normal Not Available [facility] ([facility]) [address] [place], [address], 08/14/2024 10:08:39 08/14/19 25 08/14/2024 FE+TI BC+FE R iron 48 ug/dL 27-159 normal Not Available [facility] ([facility]) [address] [place], [address], 08/14/2024 10:08:39 08/14/1908/14/2024 FE+TI BC+FE R iron saturation 16 % 15-55 normal Not Available [facility] ([facility]) [address] [place], [address], 08/14/2024 10:08:39 08/14/19 25 08/14/2024 FE+TI BC+FE R ferritin 59 NG/mL 15-150 normal Not Available [facility] ([facility]) [address] [facility], [place], [address], 08/14/2024 10:08:39 08/14/1908/14/2024 CBC WITH DIFFE RENTI AL/PL ATELE T WBC 8.0 x10e3 /uL 3.4-10 .8 normal Not Available [facility] ([facility]) [address] [facility], [place], [address], 08/14/2024 10:08:40 08/14/1908/14/2024 CBC WITH DIFFE RENTI AL/PL ATELE T RBC 4.28 x10e6 /uL 3.77-5 .28 normal Not Available [facility] ([facility]) [address] [facility], [place], [address], 08/14/2024 10:08:40 08/14/1908/14/2024 CBC WITH DIFFE RENTI AL/PL ATELE T hemoglobin 13.0 g/dL 11.1-1 5.9 normal Not Available [facility] ([facility]) [address] [place], [address], 08/14/2024 10:08:40 08/14/1908/14/2024 CBC WITH DIFFE RENTI AL/PL ATELE T hematocrit 39.4 % 34.0-4 6.6 normal Not Available [facility] ([facility]) [address] [place], [address], 08/14/2024 10:08:40 08/14/1908/14/2024 CBC WITH DIFFE RENTI AL/PL ATELE T MCV 92 fL 79-97 normal Not Available [facility] ([facility]) [address] [place], [address], 08/14/2024 10:08:40 08/14/1908/14/2024 CBC WITH DIFFE RENTI AL/PL ATELE T MCH 30.4 pg 26.6-3 3.0 normal Not Available [facility] ([facility]) [address] [facility], [place], [address], 08/14/2024 10:08:40 08/14/19 25 08/14/2024 CBC WITH DIFFE RENTI AL/PL ATELE T MCHC 33.0 g/dL 31.5-3 5.7 normal Not Available [facility] ([facility]) [address] [facility], [place], [address], 08/14/2024 10:08:40 08/14/19 25 08/14/2024 CBC WITH DIFFE RENTI AL/PL ATELE T RDW 13.5 % 11.7-1 5.4 Not Available [facility] ([facility]) [address] [facility], [place], [address], 08/14/2024 10:08:40 08/14/19 25 08/14/2024 CBC WITH DIFFE RENTI AL/PL ATELE T platelets 352 x10e3 /uL 150-45 0 normal Not Available [facility] ([facility]) [address] [place], [address], 08/14/2024 10:08:40 08/14/19 25 08/14/2024 CBC WITH DIFFE RENTI AL/PL ATELE T neutrophils 52 % not estab. normal Not Available [facility] ([facility]) [address] [facility], [place], [address], 08/14/2024 10:08:40 08/14/19 25 08/14/2024 CBC WITH DIFFE RENTI AL/PL ATELE T lymphs 38 % not estab. normal Not Available [facility] ([facility]) [address] [place], [address], 08/14/2024 10:08:40 08/14/19 25 08/14/2024 CBC WITH DIFFE RENTI AL/PL ATELE T monocytes 7 % not estab. normal Not Available [facility] ([facility]) [address] [facility], [place], [address], 08/14/2024 10:08:40 08/14/1908/14/2024 CBC WITH DIFFE RENTI AL/PL ATELE T eos 2 % not estab. normal Not Available [facility] ([facility]) [address] [facility], [place], [address], 08/14/2024 10:08:40 08/14/1908/14/2024 CBC WITH DIFFE RENTI AL/PL ATELE T basos 1 % not estab. normal Not Available [facility] ([facility]) [address] [facility], [place], [address], 08/14/2024 10:08:40 08/14/1908/14/2024 CBC WITH DIFFE RENTI AL/PL ATELE T immature cells [employer]OV[employer]PER[employer] Not Available [facility] ([facility]) [address] [facility], [place], [address], 08/14/2024 10:08:40 08/14/1908/14/2024 CBC WITH DIFFE RENTI AL/PL ATELE T neutrophils (absolute) 4.3 x10e3 /uL 1.4-7. 0 normal Not Available [facility] ([facility]) [address] [place], [address], 08/14/2024 10:08:40 08/14/1908/14/2024 CBC WITH DIFFE RENTI AL/PL ATELE T lymphs (absolute) 3.0 x10e3 /uL 0.7-3. 1 normal Not Available [facility] ([facility]) [address] [place], [address], 08/14/2024 10:08:40 08/14/1908/14/2024 CBC WITH DIFFE RENTI AL/PL ATELE T monocytes(ab solute) 0.5 x10e3 /uL 0.1-0. 9 normal Not Available [facility] ([facility]) [address] [facility], [place], [address], 08/14/2024 10:08:40 08/14/1908/14/2024 CBC WITH DIFFE RENTI AL/PL ATELE T eos (absolute) 0.1 x10e3 /uL 0.0-0. 4 normal Not Available [facility] ([facility]) [address] [facility], [place], [address], 08/14/2024 10:08:40 08/14/19 25 08/14/2024 CBC WITH DIFFE RENTI AL/PL ATELE T baso (absolute) 0.0 x10e3 /uL 0.0-0. 2 normal Not Available [facility] ([facility]) [address] [facility], [place], [address], 08/14/2024 10:08:40 08/14/19 25 08/14/2024 CBC WITH DIFFE RENTI AL/PL ATELE T immature granulocytes 0 % not estab. Not Available [facility] ([facility]) [address] [facility], [place], [address], 08/14/2024 10:08:40 08/14/19 25 08/14/2024 CBC WITH DIFFE RENTI AL/PL ATELE T immature grans (abs) 0.0 x10e3 /uL 0.0-0. 1 Not Available [facility] ([facility]) [address] [place], [address], 08/14/2024 10:08:40 08/14/19 25 08/14/2024 CBC WITH DIFFE RENTI AL/PL ATELE T NRBC [employer] RECOVERY OPERATOR Not Available [facility] ([facility]) [address] [facility], [place], [address], 08/14/2024 10:08:40 08/14/19 25 08/14/2024 CBC WITH DIFFE RENTI AL/PL ATELE T hematology comments: CATALYST RECOVERY OPERATOR Not Available [facility] ([facility]) [address] [facility] [place], [address], 08/14/2024 10:08:40 08/14/19 25 08/14/2024 COMP. METAB OLIC PANEL (14) glucose 120 mg/dL 70-99 above high normal Not Available [facility] ([facility]) [address] [facility] [place], [address], 08/14/2024 10:08:40 08/14/19 25 08/14/2024 COMP. METAB OLIC PANEL (14) BUN 14 mg/dL 6-24 normal Not Available [facility] ([facility]) [address] [facility] [place], [address], 08/14/2024 10:08:40 08/14/19 25 08/14/2024 COMP. METAB OLIC PANEL (14) creatinine 0.63 mg/dL 0.57-1 .00 normal Not Available [facility] ([facility]) [address] [place], [address], 08/14/2024 10:08:40 08/14/19 25 08/14/2024 COMP. METAB OLIC PANEL (14) eGFR 103 mL/mi n/1.7 3 >59 normal Not Available [facility] ([facility]) [address] [place], [address], 08/14/2024 10:08:40 08/14/19 25 08/14/2024 COMP. METAB OLIC PANEL (14) BUN/creatini ne ratio 22 9-23 normal Not Available [facility] ([facility]) [address] [place], [address], 08/14/2024 10:08:40 08/14/19 25 08/14/2024 COMP. METAB OLIC PANEL (14) sodium 145 mmol/ L 134-14 4 above high normal Not Available [facility] ([facility]) [address] [place], [address], 08/14/2024 10:08:40 08/14/19 25 08/14/2024 COMP. METAB OLIC PANEL (14) potassium 3.0 mmol/ L 3.5-5. 2 below low normal Not Available [facility] ([facility]) [address] [facility] [place], [address], 08/14/2024 10:08:40 08/14/19 25 08/14/2024 COMP. METAB OLIC PANEL (14) chloride 100 mmol/ L 96-106 normal Not Available [facility] ([facility]) [address] [facility] [place], [address], 08/14/2024 10:08:40 08/14/1908/14/2024 COMP. METAB OLIC PANEL (14) carbon dioxide, total 29 mmol/ L 20-29 normal Not Available [facility] ([facility]) [address] [facility] [place], [address], 08/14/2024 10:08:40 08/14/19 25 08/14/2024 COMP. METAB OLIC PANEL (14) calcium 9.5 mg/dL 8.7-10 .2 normal Not Available [facility] ([facility]) [address] [facility] [place], [address], 08/14/2024 10:08:40 08/14/19 25 08/14/2024 COMP. METAB OLIC PANEL (14) protein, total 6.4 g/dL 6.0-8. 5 normal Not Available [facility] ([facility]) [address] [facility] [place], [address], 08/14/2024 10:08:40 08/14/19 25 08/14/2024 COMP. METAB OLIC PANEL (14) albumin 3.9 g/dL 3.8-4. 9 normal Not Available [facility] ([facility]) [address] [facility] [place], [address], 08/14/2024 10:08:40 08/14/19 25 08/14/2024 COMP. METAB OLIC PANEL (14) globulin, total 2.5 g/dL 1.5-4. 5 Not Available [facility] ([facility]) [address] [place], [address], 08/14/2024 10:08:40 08/14/19 25 08/14/2024 COMP. METAB OLIC PANEL (14) bilirubin, total 0.4 mg/dL 0.0-1. 2 normal Not Available [facility] ([facility]) [address] [place], [address], 08/14/2024 10:08:40 08/14/19 25 08/14/2024 COMP. METAB OLIC PANEL (14) alkaline phosphatase 187 IU/L 44-121 above high normal Not Available [facility] ([facility]) [address] [place], [address], 08/14/2024 10:08:40 08/14/19 25 08/14/2024 COMP. METAB OLIC PANEL (14) AST (SGOT) 13 IU/L 0-40 normal Not Available [facility] ([facility]) [address] [place], [address], 08/14/2024 10:08:40 08/14/19 25 08/14/2024 COMP. METAB OLIC PANEL (14) ALT (SGPT) 15 IU/L 0-32 normal Not Available [facility] ([facility]) [address] [place], [address], 08/14/2024 10:08:40 08/14/19 25 08/14/2024 LIPID PANEL cholesterol, total 145 mg/dL 100-19 9 normal Not Available [facility] ([facility]) [address] [place], [address], 08/14/2024 10:08:41 08/14/19 25 08/14/2024 LIPID PANEL triglyceride s 104 mg/dL 0-149 normal Not Available [facility] ([facility]) [address] [place], [address], 08/14/2024 10:08:41 08/14/19 25 08/14/2024 LIPID PANEL HDL cholesterol 37 mg/dL >39 below low normal Not Available [facility] ([facility]) [address] [place], [address], 08/14/2024 10:08:41 08/14/19 25 08/14/2024 LIPID PANEL VLDL cholesterol bairon 19 mg/dL 5-40 Not Available [facility] ([facility]) [address] [place], [address], 08/14/2024 10:08:41 08/14/19 25 08/14/2024 LIPID PANEL LDL chol calc ([facility]) 89 mg/dL 0-99 Not Available [facility] ([facility]) [address] [place], [address], 08/14/2024 10:08:41 08/14/19 25 08/14/2024 LIPID PANEL LDL calc comment: CATALYST RECOVERY OPERATOR Not Available [facility] ([facility]) [address] [place], [address], 08/14/2024 10:08:41 08/14/19 25 08/14/2024 VITAM IN B12 AND FOLAT E vitamin B12 685 pg/mL 232-12 45 normal Not Available [facility] ([facility]) [address] [place], [address], 08/14/2024 10:08:41 08/14/19 25 08/14/2024 VITAM IN B12 AND FOLAT E folate (folic acid), serum 16.7 NG/mL >3.0 normal A serum folat e young ntrat ion of less than 3.1 ng/mL is consi dered to repre sent clini bairon defic iency . Not Available [facility] ([facility]) [address] [place], [address], 08/14/2024 10:08:41 08/14/19 25 08/14/2024 HCV ANTIB HUGO CASCA DE(PC R/GEN O) HCV Ab Non Reacti ve non reacti ve Not Available [facility] ([facility]) [address] [facility], [place], [address], 08/14/2024 10:08:42 08/14/19 25 08/14/2024 HCV ANTIB HUGO CASCA DE(PC R/GEN O) interpretati on: Commen t Not infec abisai with HCV unles s early or acute infec tion is suspe cted (whic h may be delay ed in an immun ocomp romis ed indiv idual ), or other evide nce exist s to indic ate HCV infec tion. Not Available [facility] ([facility]) [address] [facility], [place], [address], 08/14/2024 10:08:42 08/14/19 25 08/14/2024 TSH TSH 0.854 uIU/m L 0.450- 4.500 normal Not Available [facility] ([facility]) [address] [facility], [place], [address], 08/14/2024 10:08:42 08/14/19 25 08/14/2024 VITAM IN [...] ence jennifer es for calci um and DSosa tyson [place]: [employer] . 2. Noemy castillo MF, Yanci ey [place], Latha off-F errar i ESPINAL, et al. Evalu ation , treat ment, and preve ntion of vitam in D defic iency : an Endoc rine Socie ty clini bairon pract ice guide line. JCEM. 2010; 96(7) :1911 -30. Not Available [facility] ([facility]) [address] [place], [address], 08/14/2024 10:08:43 08/14/19 25 08/14/2024 HIV AB/P2 4 AG WITH REFLE X HIV Ab/P24 Ag screen Non Reacti ve non reacti ve HIV-1 /HIV- 2 antib odies and HIV-1 p24 antig en were NOT detec abisai. There is no labor atory evide nce of HIV infec tion. HIV Negat jeffrey Not Available [facility] ([facility]) [address] [place], [address], 08/14/2024 10:08:43 08/22/19 25 08/22/2024 BASIC METAB OLIC PANEL (8) glucose 113 mg/dL 70-99 above high normal Not Available [facility] ([facility]) [address] [place], [address], 08/22/2024 11:08:19 08/22/19 25 08/22/2024 BASIC METAB OLIC PANEL (8) BUN 12 mg/dL 6-24 normal Not Available [facility] ([facility]) [address] [place], [address], 08/22/2024 11:08:19 08/22/19 25 08/22/2024 BASIC METAB OLIC PANEL (8) creatinine 0.68 mg/dL 0.57-1 .00 normal Not Available [facility] ([facility]) [address] [place], [address], 08/22/2024 11:08:19 08/22/19 25 08/22/2024 BASIC METAB OLIC PANEL (8) eGFR 102 mL/mi n/1.7 3 >59 normal Not Available [facility] ([facility]) [address] [place], [address], 08/22/2024 11:08:19 08/22/19 25 08/22/2024 BASIC METAB OLIC PANEL (8) BUN/creatini ne ratio 18 9-23 normal Not Available [facility] ([facility]) [address] [place], [address], 08/22/2024 11:08:19 08/22/19 25 08/22/2024 BASIC METAB OLIC PANEL (8) sodium 144 mmol/ L 134-14 4 normal Not Available [facility] ([facility]) [address] [facility], [place], [address], 08/22/2024 11:08:19 08/22/19 25 08/22/2024 BASIC METAB OLIC PANEL (8) potassium 3.8 mmol/ L 3.5-5. 2 normal Not Available [facility] ([facility]) [address] [place], [address], 08/22/2024 11:08:19 08/22/19 25 08/22/2024 BASIC METAB OLIC PANEL (8) chloride 101 mmol/ L 96-106 normal Not Available [facility] ([facility]) [address] [place], [address], 08/22/2024 11:08:19 08/22/19 25 08/22/2024 BASIC METAB OLIC PANEL (8) carbon dioxide, total 28 mmol/ L 20-29 normal Not Available [facility] ([facility]) [address] [place], [address], 08/22/2024 11:08:19 08/22/19 25 08/22/2024 BASIC METAB OLIC PANEL (8) calcium 9.2 mg/dL 8.7-10 .2 normal Not Available [facility] ([facility]) [address] [facility], [place], [address], 08/22/2024 11:08:19 08/22/1908/22/2024 HEMOG LOBIN A1C hemoglobin A1C 5.5 % 4.8-5. 6 normal Predi abete s: 5.7 - 6.4 Diabe melissa: >6.4 Glyce edwar contr ol for adult s with diabe melissa: <7.0 Not Available [facility] ([facility]) [address] [facility], [place], [address], 08/22/2024 11:08:19 08/22/1908/22/2024 PTH, INTAC T PTH, intact 23 pg/mL 15-65 normal Not Available [facility] ([facility]) [address] [facility], [place], [address], 08/22/2024 11:08:20 06/29/1906/22/2024 MAMMO , scree allie, bilat eral No observ ation record ed. [facility] ([facility]) [address], [place], [address], 07/04/2024 10:37:48 Result Notes None recorded. Problems Name Problem SNOMED Code Status Onset Date Resolution Date Notes Provider Name and Address Organization Details Recorded Time Essential hypertension 08894562 Active 2024 ABBE Shah [address] [place] [address], [phone], [employer] 12:24:11 Hyperlipidemia 24838558 Active 2024 ABBE Shah [address] [place] [address], [phone], [employer] 5 12:24:13 Obstructive sleep apnea syndrome 58670201 Active 2024 ABBE Shah [address] [place] [address], [phone] 8, [employer] 5 12:24:16 Bipolar disorder 06882662 Active 2024 Gabriela Kamaljit ABBE [address] [place] [address], [address], [employer] 5 12:24:08 Mild intermittent asthma 744280538 Active 2024 Gabriela ABBE Mari [address] [place] [address], [address] 8, [employer] 5 12:24:19 Ingrowing toenail 122798771 Active 2024 Gabriela ABBE Mari [address] [place] [address], [address] 8, [employer] 5 08:20:24 Hypokalemia 19908357 Active 2024 Gabriela Kamaljit [address], [address], [employer] 5 12:24:03 Problem Notes None recorded. Procedures 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 Date Name Laterality Status Provider Name and Address Organization Details Recorded Time 5 Most Recent Mammogram completed [employer] 08/13/2024 12:53:29 3 Date of Last Pap Smear completed [employer] 06/15/2024 16:37:05 Cataract Surgery completed [employer] 06/15/2024 15:55:11 Tubal Ligation completed [employer] 06/15/2024 15:55:11 Orthopedic Surgery completed [employer] 06/15/2024 15:55:11 Endometrial Ablation completed [employer] 06/15/2024 15:55:11 Cardiac Surgery completed [employer] 06/15/2024 15:55:11 Gallbladder Surgery completed [employer] 06/15/2024 15:55:11 Imaging Results None recorded. [...] Available Not Available lurasidone 60 mg tablet 06/12 completed Not Available Not [...] in Arterial blood by Pulse oximetry Systolic And Diastolic Provider Name and Address Organization Details Last Updated DateTime 46845.2 g 98.4 [degF] 41.9 kg/m2 152.4 cm 62 /min 95 % 95 % 92/60 mm[Hg] [employer] 16:00:49 Date Recorded Body height Body mass index (BMI) Body weight Oxygen saturation Oxygen saturation in Arterial blood by Pulse oximetry Heart rate Body temperature Systolic And Diastolic Provider Name and Address Organization Details Last Updated DateTime 152.4 cm 42.8 kg/m2 74054.1 7 g 96 % 96 % 62 /min 98.2 [degF] 112/72 mm[Hg] [employer] 12:51:15 Social History Question Answer Notes LastModified by Organizat ion Details LastModified Time Tobacco Smoking Status Former Smoker [employer] 06/15/2024 15:55:10 Do You Have An Advance [...] Information not available 06/15/2024 What Type Of Soils Engineer Do You Use? None Information not available 06/15/2024 Have You Been To An Area Known To Be High Risk For COVID-19? No Information not available 06/15/2024 Are You Deaf Or Do You Have Serious Difficulty Hearing? No Information not available 06/15/2024 What Type Of Diet Are You Following? REGULAR Information not available 06/15/2024 Which Illicit Or Recreational Drugs Have You Used? [place] Information not available 06/15/2024 How Many Days [...] Do You Have A Medical Power Of Marketing Operations Specialist? No Information not available 06/15/2024 What Was [...] anxious, or unable to sleep at night)? [id number] Information not available 06/15/2024 Do you have [...] Y Hypertension Y Gynecological History Statement/Question Response If Post Menopausal, Age at Menopause 41 Abnormal Pap N Menses Monthly N Date of Last Pap [...] Details Recorded Time Pneumococcal conjugate PCV20, polysaccharide POF828 conjugate, adjuvant, PF 4 completed Katiana Vice null, [employer] 06/15/2024 15:55:20 pneumococcal polysaccharide PPV23 5 completed Katiana Vice null, [employer] 06/15/2024 15:55:20 influenza, unspecified formulation 9 completed Katiana Vice null, [employer] 06/15/2024 15:55:20 Tdap 4 completed Katiana Vice null, [employer] 06/15/2024 15:55:21 Hib (PRP-OMP) 5 completed Katiana Vice null, [employer] 06/15/2024 15:55:21 Hib (PRP-OMP) 5 completed Katiana Vice null, [employer] 06/15/2024 15:55:21 meningococcal MCV4P 5 completed Katiana Vice null, [employer] 06/15/2024 15:55:21 Influenza, split virus, quadrivalent, PF 8 completed Katiana Vice null, [employer] 06/15/2024 15:55:21 Influenza, split virus, quadrivalent, PF 7 completed Katiana Vice null, [employer] 06/15/2024 15:55:21 Influenza, split virus, quadrivalent, PF 0 completed Katiana Vice null, [employer] 06/15/2024 15:55:21 Influenza, split virus, quadrivalent, PF 6 completed Katiana Vice null, [employer] 06/15/2024 15:55:21 Influenza, split virus, quadrivalent, PF 3 completed Katiana Vice null, [employer] 06/15/2024 15:55:21 Influenza, split virus, quadrivalent, PF 2 completed Katiana Vice null, [employer] 06/15/2024 15:55:21 Influenza, split virus, quadrivalent, PF 1 completed Katiana Vice null, [email or web address] 06/15/2024 15:55:21 Past Encounters Encounter ID Performer Location Encounter Start Date Encounter Closed Date Diagnosis/Indication Diagnosis SNOMED-CT Code Diagnosis ICD10 Code Diagnosis Note [id number] ABBE Shah [facility] [address] [place] [address] [id number] 2 06/15/2024 15:39:09 06/15/2024 16:21:02 Screening mammography 80825069 Z12.31 Body mass index 40+ - severely obese 906902919 Z68.41 Essential hypertension 74404611 I10 Hyperlipidemia 67611632 E78.5 Obstructiv e sleep apnea syndrome 94156195 G47.33 Bipolar disorder 6207950 4 F31.9 Mild inter mittent asthma 667056406 J45.20 [id number] ABBE Shah [facility] [address] [place] [address] [phone] 2 08/13/2024 12:41:16 08/13/2024 14:47:18 Hyperlipidemia 24781144 E78.5 Essential hypertension 75077864 I10 HIV screening 371414640 Z11.4 Hepatitis C screening 41 0441446 Z11.59 Fatigue 35387766 R53.83 Health Concerns Section Related Observation LastModified by Organization Detai ls LastModified Time None Recorded Concern Status LastModified by Organization Details LastModified Time None Recorded Advance Directives Directive N: Payers Insurance Date Sequence Insurance Name Policy Number Policy Lai Covered Member ID Lai Member ID Guarantor Name 08/21/2024 1 [employer] (MEDICARE REPLACEMENT/A DVANTAGE - PPO) [id number] Mei Funk [id number] Mei Blessing 06/13/2024 1 [place] Mei Funk [id number] Mei Blessing 08/11/2024 [place] [facility] [employer] [facility] [id number] Mei Funk [id number] Mei Funk 06/13/2024 2 [place]MEDICARE REPLACEMENT HMO) [id number] Mei Funk [id number] Mei Funk 06/13/2024 1 [facility] (MEDICAID HMO) Mei Funk [id number] Mei Funk Notes Date Note Type Note Provider Name and Address Organization Details Recorded Time 06/15/2024 text/html Patient presents to establish care.History of HLD, HTN, anxiety, depression, bipolar disorder, asthma.Recently started on B12 and iron for anemia. ABBE Shah [address] [place], [address], [employer] 06/15/2024 17:32:18 08/13/2024 text/html Patient presents for followup.History of HLD, HTN. Has been diagnosed with B12 deficiency, iron deficiency anemia. ABBE Shah [address] [place], [address], [employer] 08/14/2024 12:10:33 OBGyn Episode No OBEpisode recorded.
--- OUTSIDE RECORDS SUMMARY | 2024-12-10 10:05 | XMS_ITS | Clinical Summary ---
Author Organization [facility] yste Address [address] [place] [address] Care Team Providers Care Paper Cap Machine Operator Name Role Phone Honey Bustamante Sandy DON Primary Care Provider [phone] Social History Tobacco Use Types Packs/Day Years Used Date Smoking Tobacco: Never Assessed Abuse Screen Answer Date Recorded Unsafe at Home or Work/School Not on file Feels Threatened by Someone? Not on file 03/2023 Does Anyone Keep You from Co ntacting Others or Doint Things Outside the Home? Not on file 03/02/2023 Physical Sign of Abuse Present Not on file 1 Housing Stability Answer Date Recorded Current Living Arrangements Not on file 02/20 Potentially Unsafe Housing Conditions Not on rivera e 03/02/2023 Family and Community Support Answer Emmanuel e Recorded Help with Day-to-Day Activities Not on file 03/02/2023 Lonely or Isolated Not on file 03/02/2023 Employment Answer Date Recorded Do you want help finding or keeping work or a gale b? Not on file 03/02/2023 Disabilities Answer Date Recorded Concentrating, Remembering, or Making Decisions Difficulty Not on file 03/02/2023 Doing Errands Independently Difficulty Not on fi le 03/02/2023 Education Answer Date Recorded Help with school or training? Not on file Preferred Language Not on file 03/02/2023 Comments Unknown Sex and Gender Information Value Date Recorded Sex Assigned at Not on file Legal Sex Female 12:39 PM EST Gender Identity Not on file Sexual Orientation Not on file Plan of Treatment Health Maintenance Due Date Last Done Comments Annual Gynecologic Pelvic and Breast Exam 1967 TDAP/TD VACCINES (1 - Tdap) 1986 MAMMOGRAM 2007 COLOGUARD 01/30/2012 COLON CANCER SCREENING 5 YEAR SIGMOIDOSCOPY 01/30/2012 COLONOSCOPY 01/30/2012 COLORECTAL CANCER SCREENING 01/30/2012 CT COLONOGRAPHY 01/30/2012 FECAL OCCULT BLOOD TEST 01/30/2012 FIT Testing (1 year) 01/30/2012 Pneumococcal Vaccine 50+ (2 of 2 - PCV) 2017 0 01/06/2015 ZOSTER VACCINE (1 of 2) 2017 ANNUAL PHYSICAL 06/15/2017 HEPATITIS C SCREENING 06/15/2017 COVID-19 Vaccine ( - 2023- season) 2024 INFLUENZA VACCINE 02/20/2025 Insurance [facility] Care Teams Paper Cap Machine Operator Relationship Specialty Start Date End Date Honey Bustamante APRN [address] [place] [address] PCP - General Family Medicine 05/23/17
--- OUTSIDE RECORDS SUMMARY | 2024-12-10 10:05 | XMS_ITS | Encounter Summary ---
Author Organization Healthcare Address [address] [place] [address] Care Team Providers Care Land Surveying Manager Name Role Phone Gabriela Mari Primary Care Provider [phone] Encounter Details Date Type Department Care Team (Latest Contact Info) Description 11/05/2024 Travel Social History Tobacco Use Types Packs/Day Years [...] Description 05/08/2025 10:40 AM EST Office Visit [facility] [address] [place] [address] Eva Escoto APRN [address] [place] [address] documented as of this encounter Visit Diagnoses Not on filedocumented in this encounter Additional Health Concerns Assessment Noted Time A fall risk assessment has been complete d for the patient 05/08/2024 9:16 AM EST A Body Mass Index follow-up plan has been documented for the patient 05/08/2024 1:13 PM EST documented as of this encounter Care Teams Land Surveying Manager Relationship Specialty Start Date End Date Gabriela Mari PA [address] [place] [id number] PCP - General 09/29/22 documented as of this encounter
--- OUTSIDE RECORDS SUMMARY | 2024-12-10 10:05 | XMS_ITS | Encounter Summary ---
Author Organization Healthcare Address [address] [place] [address] Care Team Providers Care Box Spring Frame Builder Name Role Phone Gabriela Mari Primary Care Provider Reason for Referral * Consultation (Routine) - Closed Specialty Diagnoses / Procedures Referred By Contac t Referred To Contact Sleep Medicine Diagnoses Sleep apnea, primary central Obstructive sleep apnea (adult) (pediatric) John Pickering MD [address] [facility], [address] [address] Phone: tel: fax: [facility] [address] [place] [address] Phone: tel: fax: Referral ID Status Reason Start Date Expiration Date V isits Requested Visits Authorized [id number] Closed Specialty Services Required 05/11/2023 11/09/2024 1 1 Encounter Details Date Type Department Care Team (Late st Contact Info) Description 05/11/2023 Community [facility] [address] [place] [address] John Pickering MD [address] [place] [address], [place] [phone] Sleep apnea, primary central (Primary Dx); Obstructive [...] [facility] [address] [place] [address] Eva Escoto APRN [address] [place] [address] Scheduled Referrals Name Type Priority Associated Diagnoses Order Schedule Ambulatory referral to Sleep Medicine Outpatient Referral Routine Sleep apnea, primary central Obstructive sleep apnea (adult) (pediatric) Expected: 05/11/2023 (Approximate), Expires: 11/09/2024 documented as of this encounter Visit Diagnoses Diagnosis Sleep apnea, primary central- Primary Primary central sleep apnea Obstructive sleep apnea (adult) (pediatric) documented in this encounter Care Teams Box Spring Frame Builder Relationship Specialty Start Date End Date Gabriela Mari PA [address] [place] [address] PCP - General 09/29/22 documented as of this encounter
--- OUTSIDE RECORDS SUMMARY | 2024-12-10 10:05 | XMS_ITS | Clinical Summary ---
Author Organization [facility] ([place], [place], [place], [place]) Address [address] [place] [address] Care Team Providers Care Oil Well Fishing Tool Operator Name Role Phone Gabriela Mari PA-C Primary Care Provider [phone] Social History Tobacco Use Types Packs/Day Years Used Date Smoking Tobacco: Never Assessed Comments Unknown Sex and Gender Information Value Date Recorded Sex Assigned at Not on file Legal Sex Female 2:03 PM CDT Gender Identity Not on file Sexual Orientation Not on file Plan of Treatment Not on file Insurance [facility] MEDICARE PART A [facility] BLUE CROSS/BLUE SHIELD Care Teams Oil Well Fishing Tool Operator Relationship Specialty Start Date End Date Gabriela Mari PA-C [address] [place] [address] PCP - General Physician Welding Supervisor 02/07/23
--- OUTSIDE RECORDS SUMMARY | 2024-12-10 10:05 | XMS_ITS | Clinical Summary ---
Author Organization [facility] Address [address] [place], [place] [address] Care Team Providers Care Automotive Customer Experience Advisor Name Role Phone Honey Bustamante APRN Primary Care Provider Ivy vailable Allergies Active Allergy Reactions Criticality Noted Date Comments Codeine Other (See Comments) Low 07/11/2012 Upset stomach Molds & Smuts 08/11/2016 Onion 03/01/2019 Other 06/22/2017 onions Medications * This document contains information received from the source organization and may not represent a complete record from that organization. Cranberry 300 MG tablet Take 300 mg by mouth daily Active esomeprazole (NEXIUM) 20 MG capsule Take 20 mg by mouth every morning before breakfast Active IRON, FERROUS GLUCONATE, PO Take 1 tablet by mouth twice a week 65 MG Active Multiple Vitamin (MULTI VITAMIN DAILY PO) Take by mouth Active fluticasone (FLONASE) 50 MCG/ACT nasal spray Instill 1 spray in each nostril 2 (two) times daily as needed Active Cholecalciferol (VITAMIN D PO) Take 5,000 Units by mouth daily Active Warriors Mark-3 Fatty Acids (FISH OIL PO) Take by mouth Active L-Methylfolate 7.5 MG TABSIndications:B ipolar 1 disorder, depressed, moderate,Heterozy gous MTHFR mutation C677T Take 1 tablet by mouth daily 30 tablet 11 8 Active lamoTRIgine (LAMICTAL) 200 MG tabletIndications :Bipolar 1 disorder, depressed, moderate Take 1 tablet by mouth nightly 30 tablet 2 8 Active lurasidone (LATUDA) 40 MGIndications:Bip olar 1 disorder, depressed, moderate Take 1 tablet by mouth daily With dinner meal 30 tablet 2 8 Active hydrOXYzine (ATARAX) 25 MG tabletIndications :Anxiety disorder, unspecified type Take 1 tablet by mouth 3 (three) times daily as needed for Anxiety (sleep) 90 tablet 2 8 Active diclofenac (VOLTAREN) 1 % gelIndications:Pa in in both knees, unspecified chronicity,Patell ar tendinitis of both knees Apply 4 g topically four times daily as needed for Pain Max 16g/joint/day or 32g/day total 100 g 3 8 Active busPIRone (BUSPAR) 15 MG tablet Take 15 mg by mouth 3 (three) times daily. Active escitalopram (LEXAPRO) 20 MG tablet 9 Active ibuprofen (ADVIL,MOTRIN) 800 MG tablet Take 1 tablet by mouth every 6 (six) hours as needed for Pain. 60 tablet 9 Active meloxicam (MOBIC) 15 MG tablet TAKE ONE TABLET BY MOUTH DAILY 30 tablet 9 Active lisinopril-hydroC HLOROthiazide (PRINZIDE,ZESTORE TIC) 10-12.5 MGIndications:Ess ential hypertension TAKE ONE TABLET BY MOUTH TWICE A DAY 60 tablet 9 Active tiZANidine (ZANAFLEX) 2 MG tabletIndications :Strain of lumbar region, initial encounter TAKE ONE TO TWO TABLETS BY MOUTH EVERY 8 HOURS NEEDED FOR MIGRAINE 60 tablet 0 Active atorvastatin (LIPITOR) 40 MG tablet TAKE ONE TABLET BY MOUTH ONCE NIGHTLY 90 tablet 0 Active AmLODIPine (NORVASC) 2.5 MG tabletIndications :Essential hypertension TAKE ONE TABLET BY MOUTH DAILY 90 tablet 0 Active Active Problems Patient Care Coordination No te Formatting of this note migh t be different from the original. The patient's chart is closed with [facility] as of 11/10/2017. Education Materials Provided Kendall Figueroa was provided with smoking education materials. Yamilex Sherman 03/25/2015 11:28 AM Problem Noted Date Diagnosed Date Chest pain 03/01/2019 Tobacco use 03/01/2019 Hypokalemia 03/01/2019 Neck pain 08/23/2018 DDD (degenerative disc disease), cervical 2018 Morbid obesity with BMI of 40.0-44.9, adult 08/05/2017 Patellofemoral pain syndrome of both knees 01/10 Heterozygous MTHFR mutation C677T 10/15/2016 Bipolar 1 disorder, mixed, moderate 09/16/2016 Pap smear of cervix with ASCUS, cannot exclude H GSIL 05/21/2016 Bipolar disorder, unspecified 09/25/2015 Hyperlipidemia 06/30/2015 History of anemia 06/25/2015 Bipolar 1 disorder, depressed, moderate 02/06/20 15 Anxiety disorder 02/05/2015 Cannabis use disorder, moderate, dependence 01/21 Rupture, spleen 12/30/2014 Colitis 12/27/2014 Dehydration 12/27/2014 CEZAR (obstructive sleep apnea) 12/18/2014 Snoring 12/18/2014 Hypersomnia 12/18/2014 Fatigue 12/18/2014 Sinusitis 07/11/2012 HTN (hypertension) Anxiety Chronic pain S/P biopsy of cervix Immunizations Immunization Administration Dates Next Due Hib (PRP-OMP) 01/08/2015 Influenza Vaccine Quadrivalent Pf 2017,02/18/2017,03/10/2016, 5 Influenza, Unspecified 03/02/2019 Meningococcal Conjugate MCV4P 01/08/2015 Pneumococcal Polysaccharide 23 01/06/2015 Family History Medical History Relation Comments Obesity Brother Seasonal Allergies Brother Sinusitis Brother Sleep apnea Brother Snoring Brother Asthma Father CAD Father Chronic Pain Father Diabetes Father Heart attack Father Heart disease Father Heart failure Father Hypertension Father Restless legs syndrome Father Seasonal Allergies Father Snoring Father Stroke Father Ulcers Father Obesity Maternal Aunt Obesity Maternal Grandfather Osteoarthritis Maternal Grandfather Stroke Maternal Grandfather Obesity Maternal Grandmother Heart failure Maternal Uncle Obesity Maternal Uncle Seasonal Allergies Mother Thyroid disease Mother Cancer, Other or Unknown Type Paternal Aunt Hypertension Paternal Aunt Obesity Paternal Aunt Obesity Paternal Grandfather Snoring Paternal Grandfather Stroke Paternal Grandfather Chronic Pain Paternal Grandmother Obesity Paternal Grandmother Osteoarthritis Paternal Grandmother Rheum arthritis Paternal Grandmother Hypertension Paternal Uncle Obesity Paternal Uncle Colon cancer Neg Hx Colon polyps Neg Hx Mental illness Neg Hx Substance abuse Neg Hx Relation Status Comments Brother Father Maternal Aunt Maternal Grandfather Maternal Grandmother Maternal Uncle Mother Alive Paternal Aunt Paternal Grandfather Paternal Grandmother Paternal Uncle Social History Tobacco Use Types Packs/Day Years Used Date Smoking Tobacco: Every Day Cigarettes 1 20 Started: 12/26/2014 Smokeless Tobacco: Never Tobacco Cessation:Ready to Q uit: No; Counseling Given: No Comments:resfused Alcohol Use Standard Drinks/Week Comments Yes 0 (1 standard drink = 0.6 oz pur e alcohol) rarely Overall Financial Resource Strain (CARDIA) Answe r Date Recorded Difficulty of Paying Living Expenses Somewhat robles rd 11/16/2018 Hunger Vital Sign Answer Date Recorded Worried About Running Out of Food in the Last Ye ar Sometimes true 11/16/2018 Ran Out of Food in the Last Year Sometimes true 11/16/2018 PRAPARE - Transportation Answer Date Re corded Lack of Transportation (Medical) No 11/16/2018 Lack of Transportation (Non-Medical) No 11/16/2018 Comments No Sex and Gender Information Value Date Recorded Sex Assigned at Not on file Legal Sex Female 4:22 PM EST Gender Identity Not on file Sexual Orientation Not on file Last Filed Vital Signs Vital Sign Reading Time Taken Comments Blood Pressure 128/78 05/18/2019 9:13 AM EST Pulse 87 05/18/2019 8:51 AM EST Temperature 36 C (96.8 F) 11/26/2019 3:10 PM EDT Respiratory Rate 18 11/26/2019 3:10 PM EDT Oxygen Saturation 97% 05/18/2019 8:51 AM EST Inhaled Oxygen Concentration - - Weight 90.3 kg (199 lb) 11/26/2019 3:10 PM EDT Height 152.4 cm (5') 11/26/2019 3:10 PM EDT Body Mass Index 38.86 11/26/2019 3:10 PM EDT Plan of Treatment Health Maintenance Due Date Last Done Comments CT Colonography 1967 Colonoscopy 1967 Colorectal Cancer Screening 1967 FIT-DNA 1967 FIT 1967 FOBT 1967 Sigmoidoscopy 1967 Hepatitis B (HepB) Vaccine (1 of 3 - 19+ 3-dose series) 1986 Tdap/Td Vaccine >11 yo (1 - Tdap) 1986 Pneumococcal Vaccines >50 yo (2 of 2 - PCV) 2017 01/06/2015 Shingles (Shingrix) (1 of 2) 2017 Breast Cancer Screening 09/25/2020 09/26/19 19, 09/23/2017, 09/17/2016, Additional history exists Cervical Cancer Screening 05/03/20212017, 03/30/2017, 09/30/2016, Additional history exists Annual SDOH Screening 05/23/2024 Influenza Vaccine (#1) 2025 9, 02/13/2018, 02/18/2017, Additional history exists Haemophilus Influenzae Type B (Hib) Vaccine Aged Out 01/08/2015 No longer eligible based on patient's age to complete this topic Meningococcal ACWY Aged Out 01/08/2015 No longer eligible based on patient's age to complete this topic Hepatitis A (HepA) Vaccine Aged Out N o longer eligible based on patient's age to complete this topic Polio (IPV) Aged Out No longer eligi ble based on patient's age to complete this topic Rotavirus (RV) Vaccine Aged Out No lo nger eligible based on patient's age to complete this topic Goals Goal Patient Goal Type Associated Problems Recent Progress Patient-Stated? Author Blood Pressure < 140/90 Blood Pressure 128/78(2018 9:13 AM EST) No Yamilex Sherman Quit smoking / using tobacco Lifestyle No Yamilex Sherman Increase physical activity Lifestyle No Yamilex Sherman Procedures Procedure Name Priority Date/Time Associated Diagnosis Comments MAMMOGRAM SCREENING BILATERAL Routine 09/25/2018 9:59 AM EDT Encounter for screening mammogram for malignant neoplasm of breast PAP SMEAR Routine 05/03/2018 10:52 AM EST Women's annual routine gynecological examination from Last 3 Months or Most Recently Relevant to Health Maintenance Results * Mammogram Screening Bilateral (09/25/2018 9:59 AM EDT) Anatomical Region Laterality Modality Breast [facility] RAD Mammogra phy 09/25/2018 11:2 2 AM EDT Narrative 09/25/2018 11:23 AM EDT MAMMOGRAPHY REPORT FACILITY: UNIT/AGE/GENDER: OP AGE: 53 Y SEX: F PATIENT NAME/: KENDALL FIGUEROA W 1965 UNIT NUMBER: [id number] ACCESSION NUMBER: [id number] DATE OF EXAM: 09/25/2018 EXAMINATION(S): MAMMOGRAM SCREENING BILATERAL FOR THE PATIENT: Your exam shows there is no evidence of breast cancer. CLINICAL HISTORY: Patient is a 53 year old female. The patient is seen for a screening examination. The patient has no personal history of breast cancer. The patient has the following family history of breast cancer: cousin, breast cancer and paternal aunt, breast cancer. COMPARISON STUDIES: The present examination has been compared to prior imaging studies performed at [facility] on 05/30/2015, 09/17/2016 and 09/23/2017. DIGITAL BILATERAL SCREENING MAMMOGRAM The following views were performed: Bilateral craniocaudal and bilateral mediolateral oblique. Images were reviewed with digital R2 Computer-Aided Detection (CAD). There are scattered areas of fibroglandular density. There are no suspicious masses, significant calcifications, or other abnormalities seen. IMPRESSION: There is no mammographic evidence of malignancy. Screening Mammogram in 1 year is recommended. BI-RADS Category 1: Negative The patient has been entered into an automated reminder system. <Electronically signed by ORLANDO WALTERS M.D.> 09/25/2018 1122 Procedure Note Orlando Walters MD - 09/25/2018 MAMMOGRAPHY REPORT FACILITY: UNIT/AGE/GENDER: OP AGE: 53 Y SEX: F PATIENT NAME/: KENDALL FIGUEROA W 1965 UNIT NUMBER: [id number] ACCESSION NUMBER: [id number] DATE OF EXAM: 09/25/2018 EXAMINATION(S): MAMMOGRAM SCREENING BILATERAL FOR THE PATIENT: Your exam shows there is no evidence of breast cancer. CLINICAL HISTORY: Patient is a 53 year old female. The patient is seen for a screeningexamination. The patient has no personal history of breast cancer. Thepatient has the following family history of breast cancer: cousin, breastcancer and paternal aunt, breast cancer. COMPARISON STUDIES: The present examination has been compared to prior imaging studies[facility]formed [facility] 05/30/2015, 09/17/2016 and09/23/2017. DIGITAL BILATERAL SCREENING MAMMOGRAM The following views were performed: Bilateral craniocaudal and bilateralmediolateral oblique. Images were reviewed with digital R2 Computer-AidedDetection (CAD). There are scattered areas of fibroglandular density. There are no suspicious masses, significant calcifications, or otherabnormalities seen. IMPRESSION: There is no mammographic evidence of malignancy. Screening Mammogram in 1 year is recommended. BI-RADS Category 1: Negative The patient has been entered into an automated reminder system. <Electronically signed by ORLANDO WALTERS M.D.> 09/25/2018 1122 Honey Bustamante LANDING SUPPORT SPECIALIST IMG MAMMOGRAPHY ORDERABLES Final Result * Pap Smear (05/03/2018 10:52 AM EST) Pathology SPECIMEN FROM UTERINE CERVIX / Unknown 05/03/2018 10:52 AM EST 05/03/2018 7:00 PM EST Comment:THINPREP, CERVICAL/E NDOCERVICAL PAP - IMAGED Narrative [facility] - 05/09/2018 8:15 AM EST Patient Name: KENDALL FIGUEROA [facility] [address] [place], [place] [address] GYNECOLOGIC CYTOLOGY REPORT DIAGNOSIS: NEGATIVE (No evidence of intraepithelial lesions or malignancy) SPECIMEN ADEQUACY: Satisfactory for evaluation: Endocervical cells present. Electronically Signed Out By Daniella Painter SPECIMEN SOURCE: Thinprep, Cervical/Endocervical Pap - Imaged CLINICAL HISTORY: LAST PAP DATE 03/30/2017 LAST PAP RESULT NORMAL HX ABNORMAL PAP SMEARS LAST MENSTRUAL PERIOD: PREVIOUS PAP RESULTS: [id number] 12/01/2015 Atypical squamous cells present; cannot exclude a high grade lesion. [id number] 04/11/2017 NEGATIVE (No evidence of intraepithelial lesions or malignancy) [id number] 10/08/2016 ATYPICAL SQUAMOUS CELLS OF UNDETERMINED SIGNIFICANCE Pap smear testing is subject to false negative and false positive results. This result should be interpreted in conjunction with history and clinical findings. ThinPrep specimens have been analyzed by the SpinGoPrep Imaging System ([employer]), an automated imaging and review system. Dietary Service Aide: Celso Jett MD Director of Cytopathology: Lissy Gill MD Jim Davis MD PATHOLOGY/CYTOLOGY ORDERABL ES Final Result Performing Organization Address City/State/[facility] Co de Phone Number [facility] [address] [place] [address], [facility] from Last 3 Months or Most Recently Relevant to Health Maintenance Insurance Member Subscriber Plan / Payer (Ef fective 2016-Present) Name:Kendall Figueroa Member ID:[id number] Relation to Subscriber:Self Name:Kendall Figueroa Subscriber ID:[id number] Payer ID:[id number] Group ID:Not on file Type:Indemnity Address: [address] [employer] Advance Directives * Full Code (Latest Code Status on File) Date Activated Date Inactivated Comments 03/01/2019 9:31 PM 03/02/2019 8:12 PM * Full Code Date Activated Date Inactivated Comments 12/30/2014 2:12 AM 01/06/2015 6:46 PM * Full Code Date Activated Date Inactivated Comments 12/27/2014 12:13 AM 12/30/2014 2:12 AM Care Teams Automotive Customer Experience Advisor Relationship Specialty Start Date End Date Honey Bustamante APRN PCP - General Nurse Practitioner Family 01/07/16
--- OUTSIDE RECORDS SUMMARY | 2024-12-10 10:05 | XMS_ITS | Encounter Summary ---
Author Organization Healthcare Address [address] [place] [address] Care Team Providers Care Html Web Developer Name Role Phone Gabriela Mari Primary Care Provider [phone] Encounter Details Date Type Department Care Team (Latest Contact Info) Description 11/06/2024 Travel Social History Tobacco Use Types Packs/Day [...] Description 05/08/2025 10:40 AM EST Office Visit [facility] [address] [place] [address] Eva Escoto APRN [address] [place] [address] documented as of this encounter Visit Diagnoses Not on filedocumented in this encounter Additional Health Concerns Assessment Noted Time A fall risk assessment has been complete d for the patient 11/06/2024 8:32 AM EDT A Body Mass Index follow-up plan has been documented for the patient 11/06/2024 5:02 PM EDT documented as of this encounter Care Teams Html Web Developer Relationship Specialty Start Date End Date Gabriela Mari PA [address] [place] [address] PCP - General 09/29/22 documented as of this encounter
--- OUTSIDE RECORDS SUMMARY | 2024-12-10 10:05 | XMS_ITS | Encounter Summary ---
Author Organization Healthcare Address [address] [place] [address] Care Team Providers Care Training Engineer Name Role Phone Gabriela Mari Primary Care Provider [phone] Reason for Referral * Consultation (Routine) - Closed Specialty Diagnoses / Procedures Referred By Contac t Referred To Contact Sleep Medicine Diagnoses CEZAR (obstructive sleep apnea) John Pickering MD [address], [address] [address] Phone: tel: fax: [facility] [address] [place] [address] Phone: tel: fax: Referral ID Status Reason Start Date Expiration Date V isits Requested Visits Authorized Closed Specialty Services Required 03/30/2023 09/28/2024 1 1 Encounter Details Date Type Department Care Team (Late st Contact Info) Description 03/30/2023 Community Orders Community Practice [address] [place] [address] John Pickering MD [address] [facility], [address] [address] CEZAR (obstructive sleep apnea) (Primary [...] Disorder Center [address] [place] [address] Eva Escoto APRN [address] [place] [address] Scheduled Referrals Name Type Priority Associated Diagnoses Order Schedule Ambulatory referral to Sleep Medicine Outpatient Referral Routine CEZAR (obstructive sleep apnea) Expected: 03/30/2023 (Approximate), Expires: 09/27/2024 documented as of this encounter Visit Diagnoses Diagnosis CEZAR (obstructive sleep apnea)- Primary Obstructive sleep apnea (adult) (pediatric) documented in this encounter Care Teams Training Engineer Relationship Specialty Start Date End Date Gabriela Mari PA [address] [place] [address] PCP - General 09/29/22 documented as of this encounter
--- OUTSIDE RECORDS SUMMARY | 2024-12-10 10:06 | XMS_ITS | Data Portability ---
Author Organization [facility] ADMIN Address [address] [place] [id number] Assessment Encounter Date Assessment Date Assessment LastModified by Organization Details LastModified Time 06/29/2022 06/29/2022 Patient will call when due for next medicine refills. ja Not available 06/29/2022 09:49:09 Plan of Treatment Reminders Order Date Submit Date Provider Last Modified By Organization Details Last Modified Time Details Appointments None recorded . Lab CMP, serum or plasma 023 06/29/19 23 [facility], [address], [address], [place], [address], 3 09:39:48 CBC w/ auto diff 023 06/29/19 23 [facility], [address], [address], [place], [address], 3 09:39:47 lipid panel, serum 023 06/29/19 23 [facility], [address], [address], [place], [address], 3 09:39:49 Referral None recorded . Procedures None recorded . Surgeries None recorded . Imaging None recorded . Medication Orders None recorded . Patient TargetsNo targets recorded. Patient InstructionsNo instructions recorded. Reason for Referral None Reported. Results Created Date Observation Date Name Description Value Unit Range Abnormal Flag Note LastModifiedBy Organization Detail LastModifiedTime 06/29/19 23 06/30/2022 CBC WITH DIFFE RENTI AL/PL ATELE T WBC 8.1 x10e3 /uL 3.4-10 .8 Not Available [facility] ([facility]) [address] [place], [address], 06/30/2022 09:39:47 06/29/19 23 06/30/2022 CBC WITH DIFFE RENTI AL/PL ATELE T RBC 4.54 x10e6 /uL 3.77-5 .28 Not Available [facility] ([facility]) [address] [place], [address], 06/30/2022 09:39:47 06/29/19 23 06/30/2022 CBC WITH DIFFE RENTI AL/PL ATELE T hemoglobin 14.1 g/dL 11.1-1 5.9 Not Available [facility] ([facility]) [address] [place], [address], 06/30/2022 09:39:47 06/29/19 23 06/30/2022 CBC WITH DIFFE RENTI AL/PL ATELE T hematocrit 42.2 % 34.0-4 6.6 Not Available [facility] ([facility]) [address] [place], [address], 06/30/2022 09:39:47 06/29/19 23 06/30/2022 CBC WITH DIFFE RENTI AL/PL ATELE T MCV 93 fL 79-97 Not Available [facility] ([facility]) [address] [place], [address], 06/30/2022 09:39:47 06/29/19 23 06/30/2022 CBC WITH DIFFE RENTI AL/PL ATELE T MCH 31.1 pg 26.6-3 3.0 Not Available [facility] ([facility]) [address] [place], [address], 06/30/2022 09:39:47 06/29/19 23 06/30/2022 CBC WITH DIFFE RENTI AL/PL ATELE T MCHC 33.4 g/dL 31.5-3 5.7 Not Available [facility] ([facility]) [address] [facility], [place], [address], 06/30/2022 09:39:47 06/29/19 23 06/30/2022 CBC WITH DIFFE RENTI AL/PL ATELE T RDW 13.1 % 11.7-1 5.4 Not Available [facility] ([facility]) [address] [facility], [place], [address], 06/30/2022 09:39:47 06/29/19 23 06/30/2022 CBC WITH DIFFE RENTI AL/PL ATELE T platelets 369 x10e3 /uL 150-45 0 Not Available [facility] ([facility]) [address] [facility], [place], [address], 06/30/2022 09:39:47 06/29/19 23 06/30/2022 CBC WITH DIFFE RENTI AL/PL ATELE T neutrophils 48 % not estab. Not Available [facility] ([facility]) [address] [facility], [place], [address], 06/30/2022 09:39:47 06/29/19 23 06/30/2022 CBC WITH DIFFE RENTI AL/PL ATELE T lymphs 42 % not estab. Not Available [facility] ([facility]) [address] [facility], [place], [address], 06/30/2022 09:39:47 06/29/19 23 06/30/2022 CBC WITH DIFFE RENTI AL/PL ATELE T monocytes 9 % not estab. Not Available [facility] ([facility]) [address] [place], [address], 06/30/2022 09:39:47 06/29/19 23 06/30/2022 CBC WITH DIFFE RENTI AL/PL ATELE T eos 1 % not estab. Not Available [facility] ([facility]) [address] [facility] [place], [address], 06/30/2022 09:39:47 06/29/19 23 06/30/2022 CBC WITH DIFFE RENTI AL/PL ATELE T basos 0 % not estab. Not Available [facility] (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) [address] [facility], [place], [address], 06/30/2022 09:39:47 06/29/19 23 06/30/2022 CBC WITH DIFFE RENTI AL/PL ATELE T neutrophils (absolute) 3.8 x10e3 /uL 1.4-7. 0 Not Available [facility] ([facility]) [address] [facility], [place], [address], 06/30/2022 09:39:47 06/29/19 23 06/30/2022 CBC WITH DIFFE RENTI AL/PL ATELE T lymphs (absolute) 3.4 x10e3 /uL 0.7-3. 1 above high normal Not Available [facility] ([facility]) [address] [facility], [place], [address], 06/30/2022 09:39:47 06/29/19 23 06/30/2022 CBC WITH DIFFE RENTI AL/PL ATELE T monocytes(ab solute) 0.8 x10e3 /uL 0.1-0. 9 Not Available [facility] ([facility]) [address] [facility], [place], [address], 06/30/2022 09:39:47 06/29/19 23 06/30/2022 CBC WITH DIFFE RENTI AL/PL ATELE T eos (absolute) 0.1 x10e3 /uL 0.0-0. 4 Not Available [facility] ([facility]) [address] [facility], [place], [address], 06/30/2022 09:39:47 06/29/19 23 06/30/2022 CBC WITH DIFFE RENTI AL/PL ATELE T baso (absolute) 0.0 x10e3 /uL 0.0-0. 2 Not Available [facility] ([facility]) [address] [facility], [place], [address], 06/30/2022 09:39:47 06/29/19 23 06/30/2022 CBC WITH DIFFE RENTI AL/PL ATELE T immature granulocytes 0 % not estab. Not Available [facility] ([facility]) [address] [facility], [place], [address], 06/30/2022 09:39:47 06/29/19 23 06/30/2022 CBC WITH DIFFE RENTI AL/PL ATELE T immature grans (abs) 0.0 x10e3 /uL 0.0-0. 1 Not Available [facility] ([facility]) [address] [facility], [place], [address], 06/30/2022 09:39:47 06/29/19 23 06/30/2022 CBC WITH DIFFE RENTI AL/PL ATELE T NRBC SALES REPRESENTATIVE PRINTING PAPER Not Available [facility] ([facility]) [address] [place], [address], 06/30/2022 09:39:47 06/29/19 23 06/30/2022 CBC WITH DIFFE RENTI AL/PL ATELE T hematology comments: SALES REPRESENTATIVE PRINTING PAPER Not Available [facility] ([facility]) [address] [place], [address], 06/30/2022 09:39:47 06/29/19 23 06/30/2022 COMP. METAB OLIC PANEL (14) glucose 84 mg/dL 70-99 Not Available [facility] ([facility]) [address] [place], [address], 06/30/2022 09:39:48 06/29/19 23 06/30/2022 COMP. METAB OLIC PANEL (14) BUN 17 mg/dL 6-24 Not Available [facility] ([facility]) [address] [facility] [place], [address], 06/30/2022 09:39:48 06/29/19 23 06/30/2022 COMP. METAB OLIC PANEL (14) creatinine 0.63 mg/dL 0.57-1 .00 Not Available [facility] ([facility]) [address] [facility] [place], [address], 06/30/2022 09:39:48 06/29/19 23 06/30/2022 COMP. METAB OLIC PANEL (14) BUN/creatini ne ratio 27 9-23 above high normal Not Available [facility] ([facility]) [address] [facility] [place], [address], 06/30/2022 09:39:48 06/29/19 23 06/30/2022 COMP. METAB OLIC PANEL (14) sodium 143 mmol/ L 134-14 4 Not Available [facility] ([facility]) [address] [facility], [place], [address], 06/30/2022 09:39:48 06/29/19 23 06/30/2022 COMP. METAB OLIC PANEL (14) potassium 4.1 mmol/ L 3.5-5. 2 Not Available [facility] ([facility]) [address] [facility] [place], [address], 06/30/2022 09:39:48 06/29/19 23 06/30/2022 COMP. METAB OLIC PANEL (14) chloride 100 mmol/ L 96-106 Not Available [facility] ([facility]) [address] [facility] [place], [address], 06/30/2022 09:39:48 06/29/19 23 06/30/2022 COMP. METAB OLIC PANEL (14) carbon dioxide, total 29 mmol/ L 20-29 Not Available [facility] ([facility]) [address] [facility], [place], [address], 06/30/2022 09:39:48 06/29/19 23 06/30/2022 COMP. METAB OLIC PANEL (14) calcium 9.7 mg/dL 8.7-10 .2 Not Available [facility] ([facility]) [address] [facility], [place], [address], 06/30/2022 09:39:48 06/29/19 23 06/30/2022 COMP. METAB OLIC PANEL (14) protein, total 6.6 g/dL 6.0-8. 5 Not Available [facility] ([facility]) [address] [facility], [place], [address], 06/30/2022 09:39:48 06/29/19 23 06/30/2022 COMP. METAB OLIC PANEL (14) albumin 4.2 g/dL 3.8-4. 9 Not Available [facility] ([facility]) [address] [place], [address], 06/30/2022 09:39:48 06/29/19 23 06/30/2022 COMP. METAB OLIC PANEL (14) globulin, total 2.4 g/dL 1.5-4. 5 Not Available [facility] ([facility]) [address] [place], [address], 06/30/2022 09:39:48 06/29/19 23 06/30/2022 COMP. METAB OLIC PANEL (14) A/G ratio 1.8 1.2-2. 2 Not Available [facility] ([facility]) [address] [facility], [place], [address], 06/30/2022 09:39:48 06/29/19 23 06/30/2022 COMP. METAB OLIC PANEL (14) bilirubin, total 0.3 mg/dL 0.0-1. 2 Not Available [facility] ([facility]) [address] [facility] [place], [address], 06/30/2022 09:39:48 06/29/19 23 06/30/2022 COMP. METAB OLIC PANEL (14) alkaline phosphatase 148 IU/L 44-121 above high normal Not Available [facility] ([facility]) [address] [facility] [place], [address], 06/30/2022 09:39:48 06/29/19 23 06/30/2022 COMP. METAB OLIC PANEL (14) AST (SGOT) 17 IU/L 0-40 Not Available [facility] ([facility]) [address] [facility] [place], [address], 06/30/2022 09:39:48 06/29/19 23 06/30/2022 COMP. METAB OLIC PANEL (14) ALT (SGPT) 16 IU/L 0-32 Not Available [facility] ([facility]) [address] [facility] [place], [address], 06/30/2022 09:39:48 06/29/19 23 06/30/2022 LIPID PANEL cholesterol, total 160 mg/dL 100-19 9 Not Available [facility] ([facility]) [address] [facility] [place], [address], 06/30/2022 09:39:49 06/29/19 23 06/30/2022 LIPID PANEL triglyceride s 98 mg/dL 0-149 Not Available [facility] ([facility]) [address] [facility] [place], [address], 06/30/2022 09:39:49 06/29/19 23 06/30/2022 LIPID PANEL HDL cholesterol 51 mg/dL >39 Not Available [facility] ([facility]) [address] [facility] [place], [address], 06/30/2022 09:39:49 06/29/19 23 06/30/2022 LIPID PANEL VLDL cholesterol bairon 18 mg/dL 5-40 Not Available [facility] ([facility]) [address] [facility], [place], [address], 06/30/2022 09:39:49 06/29/19 23 06/30/2022 LIPID PANEL LDL chol calc ([facility]) 91 mg/dL 0-99 Not Available [facility] (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) [address] [facility], [place], [address], 06/30/2022 09:39:49 Result Notes None recorded. Problems Name Problem SNOMED Code Status Onset Date Resolution Date Notes Provider Name and Address Organization Details Recorded Time Mixed anxiety and depressive disorder 584523906 Active Jacinda Wood null, [place] - [facility] & [facility] 2 06:34:28 Degeneration of lumbar intervertebral disc 26163604 Active Jacinda [place] null, [place] [facility] & [place] 2 06:34:28 Chronic obstructive pulmonary disease 54643848 Active Jacinda Wood null, [place] [facility] - [place] & [place] 2 06:34:28 Degeneration of cervical intervertebral disc 43044898 Active Jacinda [place] null, [place] [facility] - [place] & [place] 2 06:34:28 Tobacco user 136048015 Active Jacinda [place] [facility] & [place] 2 06:34:28 Hypertensive disorder 02478218 Active Jacinda [place] null, [place] [facility] [place] & [place] 2 06:34:28 Sleep apnea 85000107 Active Jacinda [place], [place] [facility] [place] & [place] 2 06:34:28 Hyperlipidemia 98836346 Active Jacinda [place], [place] [facility] [place] & [place] 2 06:34:28 Gastroesophage al reflux disease without esophagitis 141533833 Active MAKENZIE Ballesteros [facility] & [place] 2 06:34:28 Problem Notes None recorded. Procedures 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 Date Name Laterality Status Provider Name and Address Organization Details Recorded Time 01/30/20 22 completed [facility] & [place] 06/29/2022 09:06:47 02/24/20 20 Most Recent Bone Density completed [facility] & [place] 06/29/2022 09:06:47 07/27/19 17 Date of Last Colonoscopy completed [facility] & [place] 06/29/2022 09:06:47 Imaging Results None recorded. Procedure Notes None recorded. Medical Equipment None Reported. Allergies No known drug allergies Medications Name Sig Start Date Stop Date Status Note LastModified by Organization Details LastModified Time atorvastati n 40 mg tablet active Not Available Not Available Not Available lamotrigine 200 mg tablet 1 {tablet} by oral route. active Not Available Not Available No t Available azithromyci n 250 mg tablet 06/29 completed Not Available Not Available Not Available benzonatate 200 mg capsule 06/29 completed Not Available Not Available Not Available hydrocodone 5 mg-acetamin ophen 325 mg tablet active Not Available Not Available No t Available prednisone 20 mg tablet 06/29 completed Not Available Not Available Not Available amlodipine 2.5 mg tablet Take 1 tablet every day by oral route. active Not Available Not Available No t Available tramadol 50 mg tablet active Not Available Not Available No t Available prednisolon e acetate 1 % eye drops,suspe nsion 06/29 completed Not Available Not Available Not Available methocarbam ol 750 mg tablet active Not Available Not Available Not Available pantoprazol e 40 mg tablet,pastora yed release 1 {tablet} by oral route. active Not Available Not Available No t Available buspirone 10 mg tablet 06/29 completed Not Available Not Available Not Available lisinopril 20 mg-hydrochl orothiazide 25 mg tablet TAKE ONE TABLET BY MOUTH DAILY active Not Available Not Available No t Available diclofenac sodium 75 mg tablet,pastora yed release active Not Available Not Available Not Available hydroxyzine HCl 25 mg tablet 1 {tablet_a s_needed} 3 times a day by oral route. active Not Available Not Available No t Available methylpredn isolone 4 mg tablets in a dose pack 06/29 completed Not Available Not Available Not Available cefdinir 300 mg capsule 06/29 completed Not Available Not Available Not Available buspirone 15 mg tablet 1 {tablet} twice a day by oral route. active Not Available Not Available No t Available escitalopra m 20 mg tablet 1 {tablet} by oral route. active Not Available Not Available No t Available cyclobenzap rine 5 mg tablet active Not Available Not Available Not Available varenicline tartrate 1 mg tablet twice a day by oral route. active Not Available Not Available No t Available varenicline tartrate 0.5 mg (11)-1 mg (42) tablets in a dose pack active Not Available Not Available Not Available ProAir HFA 90 mcg/actuati on aerosol inhaler 1 {puff} by inhalatio n route. active Not Available Not Available No t Available Latuda 60 mg tablet 1 {tablet_w ith_food} by oral route. active Not Available Not Available No t Available Anoro Ellipta 62.5 mcg-25 mcg/actuati on powder for inhalation INHALE 1 PUFF BY MOUTH ONCE A DAY 2023 active Not Available Not Available Not Avai lable ProAir RespiClick 90 mcg/actuati on breath activated active Not Available Not Available No t Available Vitals Date Recorded Body weight Body mass index (BMI) Body height Body temperature Heart rate Systolic And Diastolic Provider Name and Address Organization Details Last Updated DateTime 3 17593.3 6 g 42 kg/m2 152.4 cm 97.4 [degF] 71 /min 133/85 mm[Hg] Yanet Ellsworth [place] - [facility] & [place] 3 09:11:34 Social History Question Answer Notes LastModified by Organizat ion Details LastModified Time Do You Have An Advance Directive? No Information not available 06/29/2022 Are You Blind Or Do You Have Difficulty Seeing? Yes Information not available 06/29/2022 What Was The Date Of Your Most Recent Tobacco Screening? 04/13/2022 Information not available 06/29/2022 Are You Passively Exposed To Smoke? No [email or web address] Information not available 06/29/2022 Sex: Female Functional Status Question Answer Note LastModified by Organizat ion Details LastModified Time Do you use any illicit or recreational drugs? Yes Information not available 06/29/2022 What is your exercise level? Occasional Information not available 06/29/2022 Mental Status Question Answer Note LastModified by Organization D etails LastModified Time Do you feel stressed (tense, restless, nervous, or anxious, or unable to sleep at night)? [id number] [email or web address] Information not available 06/29/2022 Family History Nothing Reported. Medical History Condition Response Obesity Y Vision or Eye Problems Y Arthritis Y Congestive Heart Failure (CHF) Y Back Problems Y Reflux/GERD Y High Cholesterol Y Psychiatric/Mental Health Condition Y Headaches Y Hypertension Y Obstructive Sleep Apnea Y Gynecological History Statement/Question Response Menses Monthly N Abnormal Pap N 2022 Date of Last Colonoscopy 07/26/2016 Most Recent Bone Density 02/24/2020 Sexually Active? N Obstetrics History GPAL:G 0 P 0 0 0 0 Immunizations Vaccine Type Date Status Note Provider Nam e and Address Organization Details Recorded Time pneumococcal polysaccharide PPV23 5 completed Yanet paiz, [place] - [facility] [facility] & [place] 06/29/2022 09:12:19 influenza, unspecified formulation 9 completed Yanet Ellsworth null, [place] [facility] - [place] & [place] 06/29/2022 09:12:19 Hib (PRP-OMP) 5 completed Yanet Ell[place] [facility] & [place] 06/29/2022 09:12:19 Hib (PRP-OMP) 5 completed Yanet Ell[place] null[place] [facility] & [place] 06/29/2022 09:12:19 meningococcal MCV4P 5 completed Yanet Ell[place] [facility] & [place] 06/29/2022 09:12:19 Influenza, split virus, quadrivalent, PF 8 completed Yanet Houdlette null, [place] - [facility] & [place] 06/29/2022 09:12:19 Influenza, split virus, quadrivalent, PF 7 completed Yanet Houd[place] null[place] [facility] & [place] 06/29/2022 09:12:19 Influenza, split virus, quadrivalent, PF 6 completed Yanet Houd[place] null[place] [facility] & [place] 06/29/2022 09:12:19 Influenza, split virus, quadrivalent, PF 2 completed Yanet Houdlette null, [place]IE [facility]NT [facility] & [place] 06/29/2022 09:12:19 Influenza, split virus, quadrivalent, PF 1 completed [facility]oudlette null, [facility] & [place] 06/29/2022 09:12:19 Influenza, split virus, quadrivalent, PF 0 completed Yanet Houdlette null, MAKENZIE [facility]NT [facility] & [place] 06/29/2022 09:12:19 Past Encounters Encounter ID Performer Location Encounter Start Date Encounter Closed Date Diagnosis/Indication Diagnosis SNOMED-CT Code Diagnosis ICD10 Code Diagnosis Note [id number] Fabian Bush MD [facility] [address] [place] [address] 06/29/2022 08:57:58 06/29/2022 09:52:45 Hypertensive disorder 65969889 I10 Continue current medication s at this time. Hyperlipidemia 99341338 E78.5 Chronic ob structive pulmonary disease 55284511 J44.9 Continue current medication s at this time. Tobacco user 944942903 Z 72.0 Recently quit on her own about a week ago. Mixed anxi ety and depressive disorder 450690639 F41.8 Continues to follow with psychiatry at [facility]. Health Concerns Section Related Observation LastModified by Organization Detai ls LastModified Time None Recorded Concern Status LastModified by Organization Details LastModified Time None Recorded Advance Directives Directive N: Payers Insurance Date Sequence Insurance Name Policy Number Policy Lai Covered Member ID Lai Member ID Guarantor Name 06/29/2022 1 [employer] (MEDICAID REPLACEMENT - HMO) [id number] Mei Funk [id number] Mei Funk 06/29/2022 2 [place]MEDICARE REPLACEMENT HMO) [id number] Mei Funk [id number] Mei Funk Notes Date Note Type Note Provider Name and Address Organization Details Recorded Time 06/29/2022 text/html Here for medicin e follow-up today. Last seen over 6 months ago.Is fasting for labs today.Continues to follow with [facility] for her depression/anxiet y and bipolar disorder. States her medicines have not changed. States [facility] will not write her a note for her dog as an emotional support animal.Has continued on the Amlodipine and Lisinopril-HCTZ for her BP. Has not felt like her BP is going too high or low. Denies chest pain or palpitations.Cont inues on the Anoro daily which has helped her breathing. Has not had to use the Albuterol MDI for awhile. Admits she tried the Chantix for awhile. Had quit and then restarted smoking again. Says she quit again on her own about a week ago.Using her CPAP at night to help her sleep better. Fabian Bush MD [address], [place], [address], [facility] [place] [facility] [place] 06/29/2022 10:07:44 OBGyn Episode No OBEpisode recorded.
--- OUTSIDE RECORDS SUMMARY | 2024-12-10 10:06 | XMS_ITS ---
Author Organization Unknown Patient Care team information Name Category Status Period Participants - - Proposed period not known -
--- OUTSIDE RECORDS SUMMARY | 2024-12-10 10:06 | XMS_ITS | Referral Summary ---
Author Organization [facility] ([place], [place], [place], [place]) Address [address] [place] [address] Care Team Providers Care Denitrator Operator Name Role Phone Gabriela Mari PA-C Primary Care Provider [phone] Social History Tobacco Use Types Packs/Day Years Used Date Smoking Tobacco: Never Assessed Comments Unknown Sex and Gender Information Value Date Recorded Sex Assigned at Not on file Legal Sex Female 2:03 PM CDT Gender Identity Not on file Sexual Orientation Not on file Plan of Treatment Not on file Insurance PASSPORT [facility] [place] [address] MEDICARE PART A B [facility]OSS/[facility]UE SHIELD Care Teams Denitrator Operator Relationship Specialty Start Date End Date Gabriela Mari PA-C [address] [place] [address] PCP - General Physician Optimization Specialist 02/07/23
--- NOTE | 2024-12-10 10:14 | A.OFFVIS_ITS ---
[facility] Disclaimer: The information contained in this section may have been updated after the patient was seen, as this information can be updated by other users. Medical History Edema Pulmonary emphysema History of COPD Smoking greater than 30 pack years Coronary artery abnormality Elevated liver enzymes Abnormal liver function tests Morbid obesity with BMI of 40.0-44.9, adult Abnormal electrocardiogram [ECG] [EKG] Former smoker Family history of ischemic heart disease before age 50 Father-WA @ 42 Brother-KAVITHA @42 Brother-CABG @45 Mother-AFib Dyspnea Typical angina Coronary artery calcification seen on CT scan Coronary artery disease Back pain, chronic Neck pain, chronic COPD (chronic obstructive pulmonary disease) Bipolar 1 disorder Insomnia Depression Anxiety Hyperlipidemia Hypertension 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 H/O lateral meniscus repair of left knee H/O lateral meniscus repair of right knee History of bladder surgery H/O colonoscopy H/O splenectomy Tubal ligation status History of appendectomy History of cholecystectomy Family History Other No significant family history Social History Smoking Status: Current every day smoker tobacco type: e-cigarettes alcohol intake: never substance use type: denies use current occupational status: other Travel in the last 8 weeks?: None PM Subjective & Objective Subjective Subjective:: Patient is a pleasant 59-year-old female who presents today for 6-week follow- up. Today she rates her pain a 4 out of 10. She does state that she still feels like her last cervical injection is still helping however she is complaining of more pain up higher at the base of her skull with tenderness. P atient states its fairly constant and is very aggravating and interfering with her ability perform activities of daily living such as cooking and cleaning. Patient does state that she did not end up getting the compounded cream because it was not covered by her insurance. Patient denies any other changes. Her Jose has been reviewed and is appropriate. Review of Systems: General: No recent weight changes, no fever, no sleep disturbances Respiratory: No cough, no shortness of air, no recurring pulmonary infections Cardiovascular/peripheral vascular: No chest pain, no palpitations, no edema, no shortness of breath Gastrointestinal: No new onset incontinence, normal bowel movements reported Genitourinary: No new onset incontinence Musculoskeletal: Neck pain Psychiatric: [Normal mood/affect] Neurological: [Denies weakness in extremities], [denies balance issues] Pain at rest (0-10 scale): 4 Objective Objective:: Physical Exam: General: Alert and oriented x3, no acute distress, pleasant and cooperative Lungs: Respirations even and unlabored, symmetrical chest expansion Eyes: PERRL Musculoskeletal: Flexion and extension of cervical [spine] somewhat guarded secondary to pain, [antalgic gait noted] point tenderness along bilateral cervical paraspinous muscles Neurological: Speech clear, no gross sensory deficit Has patient had previous pain injection?: No Conservative treatment options previously tried: Home exercise plan Length of treatment: Longer than 12 weeks Meds Home Medications and Allergies Home Medications ?Medication ?Instructions ?Recorded ?Confirmed ?Type buspirone 10 mg tablet 10 mg PO TID MOOD 09/02/22 0 11/08/24 History lamotrigine 200 mg tablet 200 mg PO DIRECTED SEIZUR ES 09/02/22 11/08/24 History aspirin 81 mg chewable tablet 81 mg PO DAILY Blood Thi nner 12/23/22 11/08/24 History lurasidone 40 mg tablet (Latuda) 40 mg PO HS 11/10/23 11/08/24 History nitroglycerin 0.4 mg sublingual 0.4 mg sublingual Q5M PRN chest 03/29/24 11/08/24 Rx tablet pain #25 tabs montelukast 10 mg tablet 10 mg PO DAILY #90 tabs 01/0 08/1411/08/24 Rx (Singulair) bisoprolol fumarate 10 mg tablet See Rx Instructions . Route 06/01/24 11/08/24 Rx .COMPLEX #90 tabs isosorbide mononitrate 30 mg See Rx Instructions .Rout e 06/01/24 11/08/24 Rx tablet,extended release 24 hr .COMPLEX #90 tabs mupirocin 2 % topical ointment 1 applic topical BID in fection 14 06/25/24 11/08/24 Rx days #15 grams methocarbamol 750 mg tablet 750 mg PO TID #90 tabs 11/08/24 Rx tramadol 50 mg tablet 50 mg PO BID PRN pain #60 ta bs 07/18/24 11/08/24 Rx lisinopril 20 See Rx Instructions .Route 0 08/30/24 11/08/24 Rx mg-hydrochlorothiazide 25 mg tablet .COMPLEX #180 tabs albuterol sulfate 90 mcg/actuation 2 inh inhalation Q6 H PRN shortness 09/19/24 11/08/24 Rx breath activated powder inhaler of breath or wheezing #1 ea (ProAir RespiClick) albuterol sulfate 90 mcg/actuation 2 puff inhalation Q 6H PRN . 09/26/24 11/08/24 History aerosol inhaler escitalopram oxalate 20 mg tablet 20 mg PO DAILY 09/2611/08/24 History atorvastatin 80 mg tablet 80 mg PO DAILY Cholesterol # 90 tabs 10/12/24 11/08/24 Rx fluticasone fur. 200 mcg-umeclid 1 inh inhalation PASCALE Y 90 days #90 10/12/24 11/08/24 Rx 62.5 mcg-vilant 25 mcg ea inhalat.powder (Trelegy Ellipta) hydroxyzine HCl 25 mg tablet 25 mg PO TID 10/12/24 History trazodone 150 mg tablet 150 mg PO DAILY 10/12/24 History furosemide 20 mg tablet (Lasix) See Rx Instructions PO DAILY PRN 10/25/24 11/08/24 Rx edema #30 tabs clopidogrel 75 mg tablet (Plavix) 75 mg PO DAILY Blood Thinner #90 11/20/24 Rx tabs New Prescriptions to Start Prescriptions: Allergies Allergy/AdvReac Type Severity Reaction Status Date / Time No Known Allergies Allergy Verified 11/08/24 15:07 Assessment and Plan *Assessment and plan (1) Myofascial pain: Status: Acute Category: Medical Code(s): M79.18 - Myalgia, other site (2) Neck pain: Status: Acute Category: Medical Code(s): M54.2 - Cervicalgia Plan Patient did have limited range of motion of her cervical spine with point tenderness along her bilateral cervical paraspinous muscles. I did discuss with patient that I do believe she would benefit from trigger point injections at th is location. Patient is still getting good relief with lower related to her cervical RFA that she had previously and does not require any additional injections at that location. Patient will be ordered a lidocaine topical to trial on her upper neck pain and we will follow-up with her in 1 month to see if she would like to proceed forward with the trigger point injections if it does not improve. Patient agrees with this plan of care. Patient has been instructed to contact the clinic with any concerns before the next appointment. Dr. Davis has reviewed this note and agrees with this plan of c are. This note was dictated using voice recognition software and make contain errors or omissions. All injections are used with Lidocaine, Bupivacaine and dexamethasone. Occasionally urine drug screen is needed to verify patient's compliance with our office pain contract. This is ordered based off specific treatments related to chronic pain with the potential to abuse certain medications.
[2024-12-10 10:30] VITALS: BP 138/66; PULSE 57; RESP 18; O2SAT 96; BMI 42.0
--- OUTSIDE RECORDS SUMMARY | 2024-12-10 11:05 | XMS_ITS | CCD ---
Author Organization Unknown Care Team Providers Care Semiconductor Equipment Technician Name Role Phone Unavailable Primary Care Provider Unavailabl e Unavailable Chronic Care Management Unavaila ble Summary Purpose DataExchange Insurance Providers Payer name Policy type / Coverage type Covered green party ID Effective Begin Date Effective End Date [facility] [id number] Unknown Unknown Family History Family History data not found Medication Administered No Medication Administered data Reason For Visit No Reason For Visit data Medical Equipment No Medical Equipment data Advance Directives No Advance Directive data
--- OUTSIDE RECORDS SUMMARY | 2024-12-10 11:05 | XMS_ITS | CCD ---
Author Organization Unknown Care Team Providers Care Edger Tailer Name Role Phone Unavailable Primary Care Provider Unavailabl e Unavailable Chronic Care Management Unavaila ble Summary Purpose DataExchange Insurance Providers Payer name Policy type / Coverage type Covered green party ID Effective Begin Date Effective End Date [facility] [id number] Unknown Unknown Family History Family History data not found Medication Administered No Medication Administered data Reason For Visit No Reason For Visit data Medical Equipment No Medical Equipment data Advance Directives No Advance Directive data
== END 2024-12-10 23:59 | disposition home or self-care (01) ==
PROVIDERS: PCP Physician Assistant; Visit Provider Nurse Practitioner Family
DX: M54.2 Cervicalgia (principal)
CPT/HCPCS: 99212; G0463

== ENCOUNTER 2025-01-09 09:49 | Outpatient (POV) | payer MEDICARE, MEDICAID, SELFPAY ==
--- OUTSIDE RECORDS SUMMARY | 2025-01-09 10:03 | XMS_ITS | Clinical Summary ---
Author Organization [facility] Address [address] [place], [place] [id number] Care Team Providers Care Lead Former Name Role Phone Honey Bustamante APRN Primary [...] Take 5,000 Units by mouth daily Active [place]-3 Fatty Acids (FISH OIL PO) Take by [...] original. The patient's chart is closed with [facility] as of 11/10/2017. Education Materials Provided Kendall [...] AM EDT) Anatomical Region Laterality Modality Breast [facility] RAD Mammogra phy 09/25/2018 11:2 2 AM EDT Narrative 09/25/2018 11:23 AM EDT MAMMOGRAPHY REPORT FACILITY: UNIT/AGE/GENDER: OP AGE: 53 Y SEX: F PATIENT NAME/: KENDALL FIGUEROA W 1965 UNIT NUMBER: [id number] ACCESSION NUMBER: [id number] DATE OF EXAM: 09/25/2018 EXAMINATION(S): MAMMOGRAM SCREENING [...] compared to prior imaging studies performed at [facility] on 05/30/2015, 09/17/2016 and 09/23/2017. DIGITAL BILATERAL [...] NAME/: KENDALL FIGUEROA W 1965 UNIT NUMBER: [id number] ACCESSION NUMBER: [id number] DATE OF EXAM: 09/25/2018 EXAMINATION(S): MAMMOGRAM SCREENING [...] been compared to prior imaging studiesperformed at [facility] on 05/30/2015, 09/17/2016 and09/23/2017. DIGITAL BILATERAL SCREENING [...] ORLANDO WALTERS M.D.> 09/25/2018 1122 Honey Bustamante JAVA APPLICATION ENGINEER IMG MAMMOGRAPHY ORDERABLES Final Result * Pap Smear (05/03/2018 10:52 AM EST) Pathology SPECIMEN FROM UTERINE CERVIX / Unknown 05/03/2018 10:52 AM EST 05/03/2018 7:00 PM EST Comment:THINPREP, CERVICAL/E NDOCERVICAL PAP - IMAGED Narrative [facility] - 05/09/2018 8:15 AM EST Patient Name: KENDALL FIGUEROA [facility] [address] [place], [place] [address] GYNECOLOGIC CYTOLOGY REPORT DIAGNOSIS: NEGATIVE (No evidence of intraepithelial lesions or malignancy) SPECIMEN ADEQUACY: Satisfactory for evaluation: Endocervical cells present. Electronically Signed Out By Daniella Painter SPECIMEN SOURCE: Thinprep, Cervical/Endocervical Pap - Imaged CLINICAL HISTORY: LAST PAP DATE 03/30/2017 LAST PAP RESULT NORMAL HX ABNORMAL PAP SMEARS LAST MENSTRUAL PERIOD: PREVIOUS PAP RESULTS: [id number] 12/01/2015 Atypical squamous cells present; cannot exclude a high grade lesion. [id number] 04/11/2017 NEGATIVE (No evidence of intraepithelial lesions or malignancy) [id number] 10/08/2016 ATYPICAL SQUAMOUS CELLS OF UNDETERMINED SIGNIFICANCE Pap smear testing is subject to false negative and false positive results. This result should be interpreted in conjunction with history and clinical findings. ThinPrep specimens have been analyzed by the Adaptive ComputingPrep Imaging System ([employer]), an automated imaging and review system. Filtration Operator: Celso Jett MD Director of Cytopathology: Lissy Gill MD Jim Davis MD PATHOLOGY/CYTOLOGY ORDERABL ES Final Result Performing Organization Address City/State/[facility] Co de Phone Number [facility] [address] [place] [address], [facility] from Last 3 Months or Most Recently Relevant to Health Maintenance Insurance Member Subscriber Plan / Payer (Ef fective 2016-Present) Name:Kendall Figueroa Member ID:[id number] Relation to Subscriber:Self Name:Kendall Figueroa Subscriber ID:[id number] Payer ID:[id number] Group ID:Not on file Type:Indemnity Address: [address] [employer] Advance Directives * Full Code (Latest Code Status on File) Date Activated Date Inactivated Comments 03/01/2019 9:31 PM 03/02/2019 8:12 PM * Full Code Date Activated Date Inactivated Comments 12/30/2014 2:12 AM 01/06/2015 6:46 PM * Full Code Date Activated Date Inactivated Comments 12/27/2014 12:13 AM 12/30/2014 2:12 AM Care Teams Lead Former Relationship Specialty Start Date End Date Honey Bustamante APRN PCP - General Nurse Practitioner Family 01/07/16
--- OUTSIDE RECORDS SUMMARY | 2025-01-09 10:03 | XMS_ITS | Encounter Summary ---
Author Organization Healthcare Address [address] [place] [address] Care Team Providers Care Model Making Supervisor Name Role Phone Gabriela Mari Primary Care Provider [phone] Reason for Referral * Consultation (Routine) - Closed Specialty Diagnoses / Procedures Referred By Contac t Referred To Contact Sleep Medicine Diagnoses CEZAR (obstructive sleep apnea) John Pickering MD [address], [address] [address] Phone: tel: fax: [facility] Sleep Disorder Center [address] [place] [address] Phone: tel: fax: Referral ID Status Reason Start Date Expiration Date V isits Requested Visits Authorized Closed Specialty Services Required 03/30/2023 09/28/2024 1 1 Encounter Details Date Type Department Care Team (Late st Contact Info) Description 03/30/2023 Community Orders Community Practice [address] [place] [address] John Pickering MD [address] [facility], [address] [address] CEZAR (obstructive sleep apnea) (Primary [...] Disorder Center [address] [place] [address] Eva Escoto APRN [address] [place] [address] Scheduled Referrals Name Type Priority Associated Diagnoses Order Schedule Ambulatory referral to Sleep Medicine Outpatient Referral Routine CEZAR (obstructive sleep apnea) Expected: 03/30/2023 (Approximate), Expires: 09/27/2024 documented as of this encounter Visit Diagnoses Diagnosis CEZAR (obstructive sleep apnea)- Primary Obstructive sleep apnea (adult) (pediatric) documented in this encounter Care Teams Model Making Supervisor Relationship Specialty Start Date End Date Gabriela Mari PA [address] [place] [address] PCP - General 09/29/22 documented as of this encounter
--- OUTSIDE RECORDS SUMMARY | 2025-01-09 10:03 | XMS_ITS | Encounter Summary ---
Author Organization Healthcare Address [address] [place] [address] Care Team Providers Care Melt Helper Name Role Phone Gabriela Mari Primary Care Provider [phone] Reason for Referral * Consultation (Routine) - Closed Specialty Diagnoses / Procedures Referred By Contac t Referred To Contact Sleep Medicine Diagnoses Sleep apnea, primary central Obstructive sleep apnea (adult) (pediatric) John Pickering MD [address], [facility], [address] [address] Phone: tel: fax: [facility] Sleep Disorder Center [address] [place] [address] Phone: tel: fax: Referral ID Status Reason Start Date Expiration Date V isits Requested Visits Authorized [id number] Closed Specialty Services Required 05/11/2023 11/09/2024 1 1 Encounter Details Date Type Department Care Team (Late st Contact Info) Description 05/11/2023 Community [facility] Community Practice [address] [place] [address] John Pickering MD [address] [place] [address], [place] [id number] Sleep apnea, primary central (Primary Dx); Obstructive [...] [facility] Sleep Disorder Center [address] [place] [address] Eva Escoto APRN [address] [place] [address] Scheduled Referrals Name Type Priority Associated Diagnoses Order Schedule Ambulatory referral to Sleep Medicine Outpatient Referral Routine Sleep apnea, primary central Obstructive sleep apnea (adult) (pediatric) Expected: 05/11/2023 (Approximate), Expires: 11/09/2024 documented as of this encounter Visit Diagnoses Diagnosis Sleep apnea, primary central- Primary Primary central sleep apnea Obstructive sleep apnea (adult) (pediatric) documented in this encounter Care Teams Melt Helper Relationship Specialty Start Date End Date Gabriela Mari PA [address] [place] [address] PCP - General 09/29/22 documented as of this encounter
--- OUTSIDE RECORDS SUMMARY | 2025-01-09 10:03 | XMS_ITS | Clinical Summary ---
Author Organization [facility] Address [address] [place] [address] Care Team Providers Care Retail Management Keyholder Name Role Phone Honey Bustamante Sandy DON Primary Care Provider [phone] Social History Tobacco Use Types Packs/Day Years [...] 2023- season) 2024 INFLUENZA VACCINE 02/20/2025 Insurance [facility] Care Teams Retail Management Keyholder Relationship Specialty Start Date End Date Honey Bustamante APRN [address] [place] [address] PCP - General Family Medicine 05/23/17
--- OUTSIDE RECORDS SUMMARY | 2025-01-09 10:03 | XMS_ITS | Clinical Summary ---
Author Organization [facility] ([place], [place], [place], [place]) Address [address] [place] [address] Care Team Providers Care Wet Process Miller Head Name Role Phone Gabriela Mari PA-C Primary Care Provider [phone] Social History Tobacco Use Types Packs/Day Years Used Date Smoking Tobacco: Never Assessed Comments Unknown Sex and Gender Information Value Date Recorded Sex Assigned at Not on file Legal Sex Female 2:03 PM CDT Gender Identity Not on file Sexual Orientation Not on file Plan of Treatment Not on file Insurance [facility] MEDICARE PART A B [facility] [place] [facility]) [facility] BLUE CROSS/BLUE SHIELD Care Teams Wet Process Miller Head Relationship Specialty Start Date End Date Gabriela Mari PA-C [address] [place] [address] PCP - General Physician Volunteer Assistant 02/07/23
--- OUTSIDE RECORDS SUMMARY | 2025-01-09 10:04 | XMS_ITS | Referral Summary ---
Author Organization [facility] ([place], [place], [place], [place]) Address [address] [place] [address] Care Team Providers Care Stock Preparation Operator Name Role Phone Gabriela Mari PA-C Primary Care Provider [phone] Social History Tobacco Use Types Packs/Day Years Used Date Smoking Tobacco: Never Assessed Comments Unknown Sex and Gender Information Value Date Recorded Sex Assigned at Not on file Legal Sex Female 2:03 PM CDT Gender Identity Not on file Sexual Orientation Not on file Plan of Treatment Not on file Insurance [facility] [facility] MEDICARE PART A [facility] BL[facility] [place]OSS/BLUE SHIELD Care Teams Stock Preparation Operator Relationship Specialty Start Date End Date Gabriela Mari PA-C [address] [place] [address] PCP - General Physician State Patrol Officer 02/07/23
--- OUTSIDE RECORDS SUMMARY | 2025-01-09 10:04 | XMS_ITS | Clinical Summary ---
Author Organization [facility] Address [address] [place] [address] Care Team Providers Care Print Color Matcher Name Role Phone Arielle Mariie Walter MCADAMS Primary Care Provider Allergies Active Allergy Reactions Criticality Noted Date [...] Description 11/06/2024 9:00 AM EDT Office Visit [facility] Sleep Disorder Center [facility] [address] [place] [address] Michael Paredes DO CEZAR (obstructive [...] Disorder Center [address] [place] [address] Eva Escoto, CAUSTIC LIQUOR MAKER [address] [place] [address] Health Maintenance Due Date Last [...] Cancer Screening 05/03/2021 [facility]-Pap Smear 05/03/2021 05/03/2018 [id number] Vaccine ( season) 2024 [facility]-Influenza Vaccine (#1) [...] patient's age to complete this topic Insurance [facility] MEDICAID DENTAL AET MEDICARE Care Teams Print Color Matcher Relationship Specialty Start Date End Date Gabriela Mari PA [address] [place] [address] PCP - General 09/29/22
[2025-01-09 10:06] VITALS: BP 153/95; BP 160/94; PULSE 60; RESP 16; O2SAT 95; BMI 42.0
--- OUTSIDE RECORDS SUMMARY | 2025-01-09 11:03 | XMS_ITS | CCD ---
Author Organization Unknown Care Team Providers Care Air Export Logistics Manager Name Role Phone Unavailable Primary Care Provider Unavailabl e Unavailable Chronic Care Management Unavaila ble Summary Purpose DataExchange Insurance Providers Payer name Policy type / Coverage type Covered libertarian ID Effective Begin Date Effective End Date [facility] [id number] Unknown Unknown Family History Family History data not found Medication Administered No Medication Administered data Reason For Visit No Reason For Visit data Medical Equipment No Medical Equipment data Advance Directives No Advance Directive data
--- OUTSIDE RECORDS SUMMARY | 2025-01-09 11:03 | XMS_ITS | CCD ---
Author Organization Unknown Care Team Providers Care Nurse Care Manager Name Role Phone Unavailable Primary Care Provider Unavailabl e Unavailable Chronic Care Management Unavaila ble Summary Purpose DataExchange Insurance Providers Payer name Policy type / Coverage type Covered libertarian ID Effective Begin Date Effective End Date [facility] [id number] Unknown Unknown Family History Family History data not found Medication Administered No Medication Administered data Reason For Visit No Reason For Visit data Medical Equipment No Medical Equipment data Advance Directives No Advance Directive data
--- NOTE | 2025-01-09 11:27 | EXP.PAIN.SOA ---
[facility] Disclaimer: The information contained in this section may have been updated after the patient was seen, as this information can be updated by other users. Medical History Edema Pulmonary emphysema History of COPD Smoking greater than 30 pack years Coronary artery abnormality Elevated liver enzymes Abnormal liver function tests Morbid obesity with BMI of 40.0-44.9, adult Abnormal electrocardiogram [ECG] [EKG] Former smoker Family history of ischemic heart disease before age 50 Father-ND @ 42 Brother-KAVITHA @42 Brother-CABG @45 Mother-AFib Dyspnea Typical angina Coronary artery calcification seen on CT scan Coronary artery disease Back pain, chronic Neck pain, chronic COPD (chronic obstructive pulmonary disease) Bipolar 1 disorder Insomnia Depression Anxiety Hyperlipidemia Hypertension 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 H/O lateral meniscus repair of left knee H/O lateral meniscus repair of right knee History of bladder surgery H/O colonoscopy H/O splenectomy Tubal ligation status History of appendectomy History of cholecystectomy Family History Other No significant family history Social History Smoking Status: Current every day smoker tobacco type: e-cigarettes alcohol intake: never substance use type: denies use current occupational status: other Travel in the last 8 weeks?: None PM Subjective & Objective Subjective Subjective:: Patient is a pleasant 59-year-old female who presents today for follow-up. She rates her pain today as 7 out of 10. She denies any new trauma or injury. She does state that she is just having pain all over from her low back and neck to her hips and knees. Patient does believe a lot of it is related to arthritis. Patient does have a longstanding history of heart related issues and cannot tolerate NSAIDs. Patient does continue to do conservative therapy and use Biofreeze. Patient was ordered compounded cream in the past however it was not covered by insurance. Patient is prescribed methocarbamol 750 mg 3 times a day from our office and states that she only uses this as needed but it does seem to help. Patient states she is just very tired of the injections and medications in general. Her Jose has been reviewed and is appropriate. Review of Systems: General: No recent weight changes, no fever, no sleep disturbances Respiratory: No cough, no shortness of air, no recurring pulmonary infections Cardiovascular/peripheral vascular: No chest pain, no palpitations, no edema, no shortness of breath Gastrointestinal: No new onset incontinence, normal bowel movements reported Genitourinary: No new onset incontinence Musculoskeletal: Generalized joint pain, chronic back pain Psychiatric: [Normal mood/affect] Neurological: [Denies weakness in extremities], [denies balance issues] Pain at rest (0-10 scale): 7 Objective Objective:: Physical Exam: General: Alert and oriented x3, no acute distress, pleasant and cooperative Lungs: Respirations even and unlabored, symmetrical chest expansion Eyes: PERRL Musculoskeletal: Flexion and extension of cervical [spine] somewhat guarded secondary to pain, [antalgic gait noted] Neurological: Speech clear, no gross sensory deficit Has patient had previous pain injection?: No Conservative treatment options previously tried: Home exercise plan Length of treatment: Longer than 12 weeks Meds Home Medications and Allergies Home Medications ?Medication ?Instructions ?Recorded ?Confirmed ?Type buspirone 10 mg tablet 10 mg PO TID MOOD 09/02/22 01/09/25 History lamotrigine 200 mg tablet 200 mg PO DIRECTED SEIZURES 09/02/22 01/09/25 History aspirin 81 mg chewable tablet 81 mg PO DAILY Blood Thinner 12/23/22 01/09/25 History lurasidone 40 mg tablet (Latuda) 40 mg PO HS 11/10/23 01/09/25 History nitroglycerin 0.4 mg sublingual 0.4 mg sublingual Q5M PRN chest 03/29/24 01/09/25 Rx tablet pain #25 tabs montelukast 10 mg tablet 10 mg PO DAILY #90 tabs 05/25/24 01/09/25 Rx (Singulair) bisoprolol fumarate 10 mg tablet See Rx Instructions .Route 06/01/24 01/09/25 Rx .COMPLEX #90 tabs isosorbide mononitrate 30 mg See Rx Instructions .Route 06/01/24 01/09/25 Rx tablet,extended release 24 hr .COMPLEX #90 tabs mupirocin 2 % topical ointment 1 applic topical BID infection 14 06/25/24 01/09/25 Rx days #15 grams methocarbamol 750 mg tablet 750 mg PO TID #90 tabs 07/18/24 01/09/25 Rx tramadol 50 mg tablet 50 mg PO BID PRN pain #60 tabs 07/18/24 01/09/25 Rx lisinopril 20 See Rx Instructions .Route 08/30/24 01/09/25 Rx mg-hydrochlorothiazide 25 mg tablet .COMPLEX #180 tabs albuterol sulfate 90 mcg/actuation 2 inh inhalation Q6H PRN shortness 09/19/24 01/09/25 Rx breath activated powder inhaler of breath or wheezing #1 ea (ProAir RespiClick) albuterol sulfate 90 mcg/actuation 2 puff inhalation Q6H PRN . 09/26/24 01/09/25 History aerosol inhaler escitalopram oxalate 20 mg tablet 20 mg PO DAILY 09/26/24 01/09/25 History atorvastatin 80 mg tablet 80 mg PO DAILY Cholesterol #90 tabs 10/12/24 01/09/25 Rx fluticasone fur. 200 mcg-umeclid 1 inh inhalation DAILY 90 days #90 10/12/24 01/09/25 Rx 62.5 mcg-vilant 25 mcg ea inhalat.powder (Trelegy Ellipta) hydroxyzine HCl 25 mg tablet 25 mg PO TID 10/12/24 01/09/25 History trazodone 150 mg tablet 150 mg PO DAILY 10/12/24 01/09/25 History furosemide 20 mg tablet (Lasix) See Rx Instructions PO DAILY PRN 10/25/24 01/09/25 Rx edema #30 tabs clopidogrel 75 mg tablet (Plavix) 75 mg PO DAILY Blood Thinner #90 11/20/24 01/09/25 Rx tabs lidocaine 5 % topical ointment 1 applic topical DAILY #30 grams 12/10/24 01/09/25 Rx New Prescriptions to Start Prescriptions: Allergies Allergy/AdvReac Type Severity Reaction Status Date / Time No Known Allergies Allergy Verified 11/08/24 15:07 Assessment and Plan *Assessment and plan (1) Chronic pain: Status: Acute Category: Medical Code(s): G89.29 - Other chronic pain (2) Neck pain: Status: Acute Category: Medical Code(s): M54.2 - Cervicalgia (3) Low back pain: Status: Acute Category: Medical Code(s): M54.50 - Low back pain, unspecified Plan I did discuss with the patient that I do believe in future that she may really benefit from a intrathecal pain pump trial. We did review over some of the risk and benefits and I did give her educational handouts at today's visit. We will follow-up in future regarding this. I will send in a prescription of lidocaine 5% patches. Patient will return to clinic in 1 month. Patient has been instructed to contact the clinic with any concerns before the next appointment. Dr. Davis has reviewed this note and agrees with this plan of care. This note was dictated using voice recognition software and make contain errors or omissions. All injections are used with Lidocaine, Bupivacaine and dexamethasone. Occasionally urine drug screen is needed to verify patient's compliance with our office pain contract. This is ordered based off specific treatments related to chronic pain with the potential to abuse certain medications.
== END 2025-01-09 23:59 | disposition home or self-care (01) ==
PROVIDERS: PCP Physician Assistant; Visit Provider Nurse Practitioner Family
DX: M54.2 Cervicalgia (principal); M54.50 Low back pain, unspecified; G89.29 Other chronic pain; Z79.899 Other long term (current) drug therapy
CPT/HCPCS: 99212; G0463

== ENCOUNTER 2025-04-03 09:43 | Outpatient (CLI) | payer MEDICARE, MEDICAID, SELFPAY ==
--- OUTSIDE RECORDS SUMMARY | 2025-04-03 09:47 | XMS_ITS | Encounter Summary ---
Author Organization Healthcare Address [address] [place] [address] Care Team Providers Care Bath Tester Name Role Phone Gabriela Mari Primary Care Provider [phone] Reason for Referral * Consultation (Routine) - Closed Specialty Diagnoses / Procedures Referred By Contac t Referred To Contact Sleep Medicine Diagnoses Sleep apnea, primary central Obstructive sleep apnea (adult) (pediatric) John Pickering MD [address] [facility], [address] [address] Phone: tel: fax: [facility] Sleep Disorder Center [address] [place] [address] Phone: tel: fax: Referral ID Status Reason Start Date Expiration Date V isits Requested Visits Authorized [id number] Closed Specialty Services Required 05/11/2023 11/09/2024 1 1 Encounter Details Date Type Department Care Team (Late st Contact Info) Description 05/11/2023 Community Orders Community Practice [address] [place] [address] John Pickering MD [address] [place] [address], [place] [id number] Sleep apnea, primary central (Primary Dx); Obstructive [...] [facility] Sleep [facility] [address] [place] [address] Eva Escoto APRN [address] [place] [address] Scheduled Referrals Name Type Priority Associated Diagnoses Order Schedule Ambulatory referral to Sleep Medicine Outpatient Referral Routine Sleep apnea, primary central Obstructive sleep apnea (adult) (pediatric) Expected: 05/11/2023 (Approximate), Expires: 11/09/2024 documented as of this encounter Visit Diagnoses Diagnosis Sleep apnea, primary central- Primary Primary central sleep apnea Obstructive sleep apnea (adult) (pediatric) documented in this encounter Care Teams Bath Tester Relationship Specialty Start Date End Date Gabriela Mari PA [address] [place] [address] PCP - General 09/29/22 documented as of this encounter
--- OUTSIDE RECORDS SUMMARY | 2025-04-03 09:47 | XMS_ITS | Clinical Summary ---
Author Organization [facility] ([place], [place], [place], [place], [place]) Address [address] [place] [address] Care Team Providers Care Accounting Policy Consultant Name Role Phone Gabriela Mari PA-C Primary Care Provider [phone] Social History Tobacco Use Types Packs/Day Years Used Date Smoking Tobacco: Never Assessed Comments Unknown Sex and Gender Information Value Date Recorded Sex Assigned at Not on file Legal Sex Female 2:03 PM CDT Gender Identity Not on file Sexual Orientation Not on file Plan of Treatment Not on file Insurance [employer] [facility] MEDICARE PART A B [facility] ACCESS O MAP BLUE CROSS/BLUE SHIELD Care Teams Accounting Policy Consultant Relationship Specialty Start Date End Date Gabriela Mari PA-C [address] [place] [address] PCP - General Physician Manager Compliance 02/07/23
--- OUTSIDE RECORDS SUMMARY | 2025-04-03 09:47 | XMS_ITS | Clinical Summary ---
Author Organization [facility] Address [address] [place] [address] Care Team Providers Care Sediment Remediation Consultant Name Role Phone Arielle Mariie Walter MCADAMS Primary Care Provider [phone] Allergies Active Allergy Reactions Criticality Noted Date [...] Description 05/08/2025 10:40 AM EST Office Visit [facility] Sleep Disorder Center [address] [place] [address] Eva Escoto APRN [address] [place] [address] Health Maintenance Due Date Last Done Comments Y-Depression Screening 1965 [facility]-HIV Screening 1965 [facility]-Hepatitis C Screening 1965 [facility]-Medicare Annual Wellness (AWV) 1965 [facility]-/Child/Adol SDOH Screenings 1965 [facility]- SDOH Screenings 1985 [facility]-Adult SDOH Screenings 1985 [facility]-Hepatitis B Vaccines (1 of 3 - 19+ 3-dose series) 1986 [facility]-HPV/Cotest 1997 CT Colonography 01/30/2012 Colonoscopy 01/30/2012 FIT 01/30/2012 FOBT 01/30/2012 Sigmoidoscopy 01/30/2012 [facility]-Zoster Vaccines (1 of 2) 2017 [facility]-Breast Cancer Screening 09/25/2020 05/0 10/2018, 09/25/2018, 09/23/2017, Additional history exists [facility]-Cervical Cancer Screening 05/03/2021 [facility]-Pap Smear 05/03/2021 05/03/2018 [id number] Vaccine (1 - 2023- season) 2025 [facility]-Influenza Vaccine (#1) 01/21/202503/30, 05/04/2022, 05/19/2021, Additional history exists FIT-DNA 12/07/2025 12/07/2022 [facility]-Colorectal Cancer Screening 12/07/2025 [facility]-DTaP,Tdap,and Td Vaccines (2 - Td or Tdap) 06/25/2033 06/25/2023 [facility]-HIB Vaccines Aged Out 01/23/2015, 01/08/2015 N o longer eligible based on patient's age to complete this topic [facility]-Pneumococcal Vaccine: 50+ Years Completed 06/02/2023, 01/06/2015 [facility]-Obesity Intervention Completed 025, 05/08/2024, 11/07/2023, Additional history exists HPV [...] patient's age to complete this topic Insurance [employer] [facility] Care Teams Sediment Remediation Consultant Relationship Specialty Start Date End Date Gabriela Mari PA [address] [place] [address] PCP - General 09/29/22
--- OUTSIDE RECORDS SUMMARY | 2025-04-03 09:47 | XMS_ITS | Encounter Summary ---
Author Organization Healthcare Address [address] [place] [address] Care Team Providers Care Head Cager Name Role Phone Gabriela Mari Primary Care Provider [phone] Reason for Referral * Consultation (Routine) - Closed Specialty Diagnoses / Procedures Referred By Contac t Referred To Contact Sleep Medicine Diagnoses CEZAR (obstructive sleep apnea) John Pickering MD [address], [address] [address] Phone: tel: fax: [facility] Sleep Disorder Center [address] [place] [address] Phone: tel: fax: Referral ID Status Reason Start Date Expiration Date V isits Requested Visits Authorized Closed Specialty Services Required 03/30/2023 09/28/2024 1 1 Encounter Details Date Type Department Care Team (Late st Contact Info) Description 03/30/2023 Community Orders Community Practice [address] [place] [address] John Pickering MD [address] [facility], [address] [address] CEZAR (obstructive sleep apnea) (Primary [...] Disorder Center [address] [place] [address] Eva Escoto APRN [address] [place] [address] Scheduled Referrals Name Type Priority Associated Diagnoses Order Schedule Ambulatory referral to Sleep Medicine Outpatient Referral Routine CEZAR (obstructive sleep apnea) Expected: 03/30/2023 (Approximate), Expires: 09/27/2024 documented as of this encounter Visit Diagnoses Diagnosis CEZAR (obstructive sleep apnea)- Primary Obstructive sleep apnea (adult) (pediatric) documented in this encounter Care Teams Head Cager Relationship Specialty Start Date End Date Gabriela Mari PA [address] [place] [address] PCP - General 09/29/22 documented as of this encounter
--- OUTSIDE RECORDS SUMMARY | 2025-04-03 09:47 | XMS_ITS | Clinical Summary ---
Author Organization [facility] yste Address [address] [place] [address] Care Team Providers Care Job Developer For Deaf Adults Name Role Phone Honey Bustamante Sandy DON Primary Care Provider [phone] Social History Tobacco Use Types Packs/Day Years [...] ANNUAL PHYSICAL 06/15/2017 HEPATITIS C SCREENING 06/15/2017 INFLUENZA VACCINE 12/21/2024 Insurance [facility] Care Teams Job Developer For Deaf Adults Relationship Specialty Start Date End Date Honey Bustamante APRN Elad[address] [place] [address] PCP - General Family Medicine 05/23/17
--- OUTSIDE RECORDS SUMMARY | 2025-04-03 09:47 | XMS_ITS | CCD ---
Author Organization Unknown Care Team Providers Care Marine Engineer Cpvec Name Role Phone Unavailable Primary Care Provider Unavailabl e Unavailable Chronic Care Management Unavaila ble Summary Purpose DataExchange Insurance Providers Payer name Policy type / Coverage type Covered democrat ID Effective Begin Date Effective End Date [facility] [id number] Unknown Unknown Family History Family History data not found Medication Administered No Medication Administered data Reason For Visit No Reason For Visit data Medical Equipment No Medical Equipment data Advance Directives No Advance Directive data
--- OUTSIDE RECORDS SUMMARY | 2025-04-03 09:47 | XMS_ITS | Referral Summary ---
Author Organization [facility] [employer] ([place], [place], [place], [place], [place]) Address [address] [place] [address] Care Team Providers Care Shrinker Name Role Phone Gabriela Mari PA-C Primary Care Provider [phone] Social History Tobacco Use Types Packs/Day Years Used Date Smoking Tobacco: Never Assessed Comments Unknown Sex and Gender Information Value Date Recorded Sex Assigned at Not on file Legal Sex Female 2:03 PM CDT Gender Identity Not on file Sexual Orientation Not on file Plan of Treatment Not on file Insurance [employer] [facility] MEDICARE PART A B [facility] ACCESS O MAP BLUE CROSS/BLUE SHIELD Care Teams Shrinker Relationship Specialty Start Date End Date Gabriela Mari PA-C [address] [place] [address] PCP - General Physician Ccnp 02/07/23
--- OUTSIDE RECORDS SUMMARY | 2025-04-03 09:47 | XMS_ITS | Clinical Summary ---
Author Organization [facility] Address [address] [place] [address] Care Team Providers Care School Psychological Examiner Name Role Phone Honey Bustamante APRN Primary [...] Take 5,000 Units by mouth daily Active Elvaston-3 Fatty Acids (FISH OIL PO) Take by [...] original. The patient's chart is closed with [facility] as of 11/10/2017. Education Materials Provided Kendall Figueroa was provided with smoking education materials. Yamilex Sherman 03/25/2015 11:28 AM Problem Noted Date Diagnosed Date Chest pain 03/01/2019 Tobacco use 03/01/2019 Hypokalemia 03/01/2019 Neck pain 08/23/2018 DDD (degenerative disc disease), cervical 2018 Morbid obesity with BMI of 40.0-44.9, adult 12/22 Patellofemoral pain syndrome of both knees 01/10 Heterozygous MTHFR mutation C677T 10/15/2016 Bipolar 1 disorder, mixed, moderate 09/16/2016 Pap smear of cervix with ASCUS, cannot exclude H GSIL 05/21/2016 Bipolar disorder, unspecified 09/25/2015 Hyperlipidemia 06/30/2015 History of anemia 06/25/2015 Bipolar 1 disorder, depressed, moderate 02/06/20 Anxiety disorder 02/05/2015 Cannabis use disorder, moderate, [...] 2025 9, 02/13/2018, 02/18/2017, Additional history exists RSV 50+ and (1 - 1-dose 75+ series) 2042 Haemophilus Influenzae Type B (Hib) Vaccine Aged [...] AM EDT) Anatomical Region Laterality Modality Breast [facility] RAD Mammogra phy 09/25/2018 11:2 2 AM EDT Narrative 09/25/2018 11:23 AM EDT MAMMOGRAPHY REPORT FACILITY: UNIT/AGE/GENDER: OP AGE: 53 Y SEX: F PATIENT NAME/: KENDALL FIGUEROA W 1965 UNIT NUMBER: [id number] ACCESSION NUMBER: [id number] DATE OF EXAM: 09/25/2018 EXAMINATION(S): MAMMOGRAM SCREENING [...] compared to prior imaging studies performed at [facility] on 05/30/2015, 09/17/2016 and 09/23/2017. DIGITAL [...] 53 Y SEX: F PATIENT NAME/: KENDALL FIGUEROA, Maye 1965 UNIT NUMBER: [id number] ACCESSION NUMBER: [id number] DATE OF EXAM: 09/25/2018 EXAMINATION(S): MAMMOGRAM SCREENING [...] been compared to prior imaging studiesperformed at [facility] on 05/30/2015, 09/17/2016 and09/23/2017. DIGITAL BILATERAL [...] automated reminder system. <Electronically signed by ORLANDO WLATERS M.D.> 09/25/2018 1122 Honey Sandy Bustamante APRN IM MAMMOGRAPHY ORDERABLES Final Result * Pap Smear (05/03/2018 10:52 AM EST) Pathology SPECIMEN FROM UTERINE CERVIX / Unknown 05/03/2018 10:52 AM EST 05/03/2018 7:00 PM EST Comment:THINPREP, CERVICAL/E NDOCERVICAL PAP - IMAGED Narrative [facility] - 05/09/2018 8:15 AM EST Patient Name: KENDALL FIGUEROA [facility] [address] [place], [place] [address] GYNECOLOGIC CYTOLOGY REPORT DIAGNOSIS: NEGATIVE (No evidence of intraepithelial lesions or malignancy) SPECIMEN ADEQUACY: Satisfactory for evaluation: Endocervical cells present. Electronically Signed Out By Daniella Painter SPECIMEN SOURCE: Thinprep, Cervical/Endocervical Pap - Imaged CLINICAL HISTORY: LAST PAP DATE 03/30/2017 LAST PAP RESULT NORMAL HX ABNORMAL PAP SMEARS LAST MENSTRUAL PERIOD: PREVIOUS PAP RESULTS: [id number] 12/01/2015 Atypical squamous cells present; cannot exclude a high grade lesion. [id number] 04/11/2017 NEGATIVE (No evidence of intraepithelial lesions or malignancy) [id number] 10/08/2016 ATYPICAL SQUAMOUS CELLS OF UNDETERMINED SIGNIFICANCE Pap smear testing is subject to false negative and false positive results. This result should be interpreted in conjunction with history and clinical findings. ThinPrep specimens have been analyzed by the [employer] System ([email or web address]), an automated imaging and review system. Correspondence Transcriber: Celso Jett MD Director of Cytopathology: Lissy Gill MD Jim Davis MD PATHOLOGY/CYTOLOGY ORDERABL ES Final Result [facility] [address] [place] [address], [facility] Last 3 Months or Most Recently Relevant to Health Maintenance Insurance Member Subscriber Plan / Payer (Ef fective 2016-Present) Name:Kendall Figueroa Member ID:[id number] Relation to Subscriber:Self Name:Kendall Figueroa Subscriber ID:[id number] Payer ID:[id number] Group ID:Not on file Type:Indemnity Address: [address] [place] [address] [employer] Advance Directives * Full Code (Latest Code Status on File) Date Activated Date Inactivated Comments 03/01/2019 9:31 PM 03/02/2019 8:12 PM * Full Code Date Activated Date Inactivated Comments 12/30/2014 2:12 AM 01/06/2015 6:46 PM * Full Code Date Activated Date Inactivated Comments 12/27/2014 12:13 AM 12/30/2014 2:12 AM Care Teams School Psychological Examiner Relationship Specialty Start Date End Date Honey Bustamante APRN PCP - General Nurse Practitioner Family 01/07/16
== END 2025-04-03 23:59 | disposition home or self-care (01) ==
LOC: RT 09:43
PROVIDERS: PCP Physician Assistant; Visit Provider Internal Medicine Pulmonary Disease
DX: R94.2 Abnormal results of pulmonary function studies (principal); R06.09 Other forms of dyspnea; R06.02 Shortness of breath
CPT/HCPCS: 94010; 94618